=== PATIENT | female | born 1945 | race Caucasian/White ===

== ENCOUNTER 2016-07-31 11:15 | Inpatient (IN) | payer OTHER, MEDICARE ==
[2016-07-31] VITALS (8 sets, daily range): BP systolic 73–127; BP diastolic 50–75; PULSE 77–103; TEMP 36.9–38.6; O2SAT 94–99; Ht 162.6 cm; Wt 92.3 kg
[~2016-07-31] VITALS: Ht 162.6 cm; Wt 92.3 kg
[~2016-07-31 11:15] MED LIST: LSN20 PO; MULT-223 PO
[2016-07-31] MEDS ORDERED: LPT10 PO (11:48)
[2016-07-31] MEDS ORDERED: ASPI-461 PO (11:48)
[2016-07-31] MEDS ORDERED: LISI-725 PO (11:59)
[2016-07-31] MEDS ORDERED: SODIUM CHLORIDE 0.9% 1000ML 1,000 ML IV STA ×2 (12:20→13:18)
[2016-07-31 12:36] LABS: HEMATOCRIT 51.6 % (37-47); MEAN CORPUSCULAR HGB CONC 34.1 g/dl (32-36); MEAN PLATELET VOLUME 10.9 fL (7.4-10.4); PLATELET COUNT 303 K/uL (130-400); RED BLOOD COUNT 5.67 M/uL (4.2-5.4); WHITE BLOOD COUNT 20.75 K/uL (4.8-10.8)
[2016-07-31 12:44] LABS: BUN/CREATININE RATIO 12.8 (10-20); CALCIUM 9.1 mg/dl (8.5-10.1); CREATININE 2.9 mg/dl (0.60-1.20); POTASSIUM 3.7 mmol/L (3.5-5.1)
[2016-07-31 12:50] LABS: PARTIAL THROMBOPLASTIN RATIO 1.1; PROTHROMBIN TIME (PATIENT) 10.9 SECONDS (9.0-12.0)
[2016-07-31 12:53] LABS: BASO ABS # 0.01 K/uL (0-0.2); COMPLETE YES; EOS % 0.3 %; IG% 0.4 %; LYMPH % 12.5 %; LYMPH ABS # 2.59 K/uL (1.2-3.4); NEUT % 70.8 %
--- NOTE | 2016-07-31 13:40 | DIAGNOSTIC IMAGING REPORT ---
CHEST ONE VIEW PORTABLE CLINICAL HISTORY: Leukocytosis. Evaluate for pneumonia. COMPARISON STUDY: Chest radiograph October 16, 2015. FINDINGS: Lung volumes are normal. There is no pneumothorax or pleural effusion. Cardiac size is normal. Mediastinal contours are normal. Linear left basilar opacity is suggestive of atelectasis. There is no evidence of pulmonary edema. IMPRESSION: No acute cardiopulmonary findings. Electronically signed by: Kenan Hogan M.D. 07/31/2016 1:37 PM Dictated Date/Time: 07/31/2016 1:37 PM
[2016-07-31] MEDS ORDERED: ONDANSETRON INJ 2 MG/ML 2 ML VIAL IV PRN (14:15)
[2016-07-31] MEDS ORDERED: ACETAMINOPHEN 325 MG TAB PO PRN (14:15)
[2016-07-31] MEDS ORDERED: POLYETHYLENE (MIRALAX) 17 GM PACK PO PRN (14:30)
--- NOTE | 2016-07-31 14:46 | History and Physical ---
History & Physical Date & Time of Service: Jul 31, 2016 at 14:20 Chief Complaint: Kidneys,Blood Pressure Primary Care Physician: Kevin Ritter MD History of Present Illness Source: patient 70 yo F with HTN and hyperlipidemia who was just started on ASA 81 and Lipitor two months ago presents with 5 days of nausea, vomiting and diarrhea. She states that on the first day of symptoms she had consumed home-canned applesauce that she had received in the fall. She also atea sandwich with coldcuts that were pre-packaged. The day prior she ate a crabcake at a local restaurant. She states this same kind of thing happened to her annually over the past two years, in those instances, her symptoms followed a vacation in [place]. At that time symptoms were attributed to eating foods that were rich and different from her norm. She denies any recent international travel and was in [facility] two weeks ago. She denies any recent sick contacts. She has no reptiles but does have a dog at home. She lives alone. She denies any visual changes, weakness or other neurologic symptom at this time. She is able to walk without issue. She states that her vomiting persisted for approx 3 days and then she developed a watery, non-bloody diarrhea that is essentially normal. She does report some lightheadedness without loss of consciousness, and she states that what brought her to the ER today was her lower blood pressure (which she checked at home) and her lack of urination. She denies any urinary urgency, hesitancy, pelvic pressure, flank pain, pelvic pain, fevers, chills, dysuria, chest pain, shortness of breath, sore throat, congestion, ear fullness, joint pain, muscle aches, or any issues with starting the new medications. She does report a small frontal headache around her eyes. Past Medical/Surgical History Medical Problems: (1) HTN (hypertension) Status: Chronic (2) Hyperlipidemia Status: Chronic Surgical Problems: (1) H/O colonoscopy Permanent Comment: 03/26/2015- adenomatous polyp, diverticulosis Status: Chronic (2) H/O hernia repair Status: Chronic (3) s p excision cervical lymph node Permanent Comment: benign Status: Resolved (4) S/P breast biopsy Permanent Comment: fibrocystic disease Status: Resolved (5) S/P ORIF (open reduction internal fixation) fracture Permanent Comment: left, tibia Status: Chronic Family History Cancer FH: heart disease FHx: gallbladder disease Hypertension Kidney disease Kidney stones Social History Smoking Status: Former Smoker Smokeless Tobacco Use: No Alcohol Use: socially Drug Use: none Marital Status: single Housing status: lives alone Occupational Status: retired Immunizations History of Influenza Vaccine: Yes Influenza Vaccine Date: Jan 31, 2016 History of Tetanus Vaccine?: No Tetanus Immunization Date: Oct 28, 2013 History of Pneumococcal: Yes Pneumococcal Date: May 15, 2014 History of Hepatitis B Vaccine: No Multi-Drug Resistant Organisms History of MDRO: No Allergies Coded Allergies: Ampicillin (Verified Allergy, Mild, RASH, 07/31/16) Amlodipine (Verified Allergy, Unknown, TACHYCARDIA, NAUSEA, 07/31/16) Amoxicillin (Verified Allergy, Unknown, ALLERGIC TO ALL PENICILLIN SUBSTITUTES, 07/31/16) Chlorthalidone (Verified Allergy, Unknown, SEVERE HYPONATREMIA, 07/31/16) Thiazide-Type Diuretics (Verified Allergy, Unknown, SEVERE HYPONATREMIA, ) Home Medications Scheduled Aspirin (Aspirin), 81 MG PO DAILY Atorvastatin (Atorvastatin Calcium), 10 MG PO DAILY Lisinopril (Zestril), 20 MG PO DAILY Multiple Vitamins W/ Minerals (Multi For Her 50+), 1 TAB PO DAILY Review of Systems Ten systems were reviewed and negative except as indicated in HPI above. Physical Exam Vital Signs Date Time Temp Pulse Resp B/P Pulse Ox O2 Delivery O2 Flow Rate FiO2 07/31/16 13:13 91 19 101/60 95 Room Air 07/31/16 11:47 101 07/31/16 11:47 99 83/54 07/31/16 11:20 36.4 82 16 70/52 98 Room Air GEN: WNWD, in no acute distress, alert and appropriate HEENT: NC/AT, PERRL, normal sclerae, mucous membranes are moist CARDIO: reg rate, S1/2 heard without m/g/r LUNGS: CTA bilaterally, no crackles, rales or wheezes, good diaphragmatic excursion ABD: soft, non-tender, non-distended, no rebound or guarding, +BS EXTREMITY: RP and DP palpable 2+ bilat, no LE swelling or edema, extremities are warm and well-perfused NEURO: CN 2-12 grossly intact, could not elicit knee reflexes, S1 reflexes 2/4 bilaterally, no gross focal deficits. MUSC: 5/5 strength throughout, moves easily around the bed and moving all extremities equally, no gross focal deficits SKIN: warm and dry, no rashes or lesions seen on lower legs arms, trunk or back area. Diagnostics Laboratory Results Results Past 24 Hours Test 07/31/16 11:38 07/31/16 13:48 07/31/16 13:50 Range/Units White Blood Count 20.75 4.8-10.8 K/uL Red Blood Count 5.67 4.2-5.4 M/uL Hemoglobin 17.6 12.0-16.0 g/dL Hematocrit 51.6 37-47 % Mean Corpuscular Volume 91.0 80-100 fL Mean Corpuscular Hemoglobin 31.0 25-34 pg Mean Corpuscular Hemoglobin Concent 34.1 32-36 g/dl Platelet Count 303 130-400 K/uL Mean Platelet Volume 10.9 7.4-10.4 fL Neutrophils (%) (Auto) 70.8 % Lymphocytes (%) (Auto) 12.5 % Monocytes (%) (Auto) 16.0 % Eosinophils (%) (Auto) 0.3 % Basophils (%) (Auto) 0.0 % Neutrophils # (Auto) 14.66 1.4-6.5 K/uL Lymphocytes # (Auto) 2.59 1.2-3.4 K/uL Monocytes # (Auto) 3.33 0.11-0.59 K/uL Eosinophils # (Auto) 0.07 0-0.5 K/uL Basophils # (Auto) 0.01 0-0.2 K/uL RDW Standard Deviation 43.9 36.4-46.3 fL RDW Coefficient of Variation 13.2 11.5-14.5 % Immature Granulocyte % (Auto) 0.4 % Immature Granulocyte # (Auto) 0.09 0.00-0.02 K/uL Prothrombin Time 10.9 9.0-12.0 SECONDS Prothromb Time International Ratio 1.0 0.9-1.1 Activated Partial Thromboplast Time 29.2 21.0-31.0 SECONDS Partial Thromboplastin Ratio 1.1 Sodium Level 135 136-145 mmol/L Potassium Level 3.7 3.5-5.1 mmol/L Chloride Level 96 98-107 mmol/L Carbon Dioxide Level 25 21-32 mmol/L Anion Gap 14.0 3-11 mmol/L Blood Urea Nitrogen 37 7-18 mg/dl Creatinine 2.90 0.60-1.20 mg/dl Est Creatinine Clear Calc Drug Dose 20.4 ml/min Estimated GFR () 18.4 Estimated GFR (Non- 15.9 BUN/Creatinine Ratio 12.8 10-20 Random Glucose 127 70-99 mg/dl Calcium Level 9.1 8.5-10.1 mg/dl Total Bilirubin 0.9 0.2-1 mg/dl Direct Bilirubin 0.2 0-0.2 mg/dl Aspartate Amino Transf (AST/SGOT) 15 15-37 U/L Alanine Aminotransferase (ALT/SGPT) 29 12-78 U/L Alkaline Phosphatase 88 45-117 U/L Total Protein 7.6 6.4-8.2 gm/dl Albumin 3.8 3.4-5.0 gm/dl Lipase 126 73-393 U/L Bedside Lactic Acid Venous 1.93 0.90-1.70 mmol/L Bedside Troponin I 0.000 0-0.045 ng/ml Microbiology Results 07/31/16 Blood Culture, Received Pending 07/31/16 Blood Culture, Received Pending CXR normal EKG sinus [id number], no ST changes Impression Assessment and Plan 70 yoF with acute kidney injury and hypotension responsive to IVF 1. AMIE-baseline appears to be 1.5, currently 2.9 in the setting of acute gastroenteritis for the past 5 days. Clinical picture is consistent with this with hemoconcentration, elevated BUN/Creat, low normal sodium, low BP responsive to IVF and lightheadedness at home. She has been drinking Gatorade and Pedialyte at home. Cont IVF, urine studies pending to assess FeNa. Nephro consulted at patient's request--she is known to them. Repeat PRP in am. 2. AGE-uncertain etiology with causes including but not limited to foodborne illness such as staph or other pre-formed toxin versus botulism (ate home- canned foods on day illness began,however, no neurologic manifestations), community-acquired illness such as Norovirus (which may also be foodborne), renal failure, drugs (however, denies any abx). Normal TSH in 2016. Will screen for diabetes with A1C. She also may have a food intolerance that is unknown to her.? PUD or H pylori is also a remote possibility as this should cause a more regular functional dyspepsia, however, it is reasonable to screen her stool. Stool is watery and non-bloody so do not suspect any invasive enteropathies/inflammatory diarrhea such as salmonella present. Cont clear liquid diet and supportive care for now. 3. Leukocytosis-likely 2/2 hemoconcentration and inflammatory response with recent illness. No fevers, chills, or other signs of systemic infection. Monitor with daily CBC 4. Hypotension-likely 2/2 vomiting and diarrhea, fluid-responsive 5. HLP-recently started statin, cont this now. Full Code Clear liquid diet for now FULL CODE Dispo-likely home in next 1-2 days Angelita Davila, Hospitalist Level of Care Med/Surg Resuscitation Status FULL RESUSCITATION VTE Prophylaxis VTE Risk Assessment Done? Y/N: Yes Risk Level: Moderate Given or contraindicated: Unfractionated heparin SQ Social Service Consult None Apply
[2016-07-31] MEDS ORDERED: IV FLUIDS COMPLETED PRN ×2 (15:15)
--- NOTE | 2016-07-31 15:15 | EMERGENCY ROOM VISIT NOTE ---
History Report prepared by Idalia: Jon Ramsay Under the Supervision of: Dr. Rocael Salmon M.D. First contact with patient: 12:12 Chief Complaint: OTHER COMPLAINT Stated Complaint: KIDNEYS,BLOOD PRESSURE History of Present Illness The patient is a 70 year old female who presents to the Emergency Room with complaints of persistent weakness that began on Monday, four days prior to arrival. The patient is also concerned of her blood pressure dropping and a decrease in urination frequency and force. She first noticed her decrease in urination in Monday, and had a low blood pressure reading of 119/80 yesterday afternoon. She denies any recent chest pains or shortness of breath. The patient does have a history of renal failure and drinks over 2 liters of water per day. She notes that she usually urinates frequently with force, which has decreased greatly over the past four days. The patient has had several bouts of diarrhea and right upper quadrant abdominal pain that began on , three days prior to this visit. The abdominal pain migrated down to her lower abdomen but has since resolved. She denies any recent fevers or long trips. The patient commonly takes Lisinopril, but she has not taken any dosages since Monday when she noticed her blood pressure dropping, she also takes daily Baby Aspirin. 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 A total of 10 systems reviewed and were otherwise negative. Past Medical & Surgical Medical Problems: (1) Acute kidney injury (2) ARF (acute renal failure) (3) Gastroenteritis (4) HTN (hypertension) (5) Hyperlipidemia Surgical Problems: (1) H/O colonoscopy (2) H/O hernia repair (3) s p excision cervical lymph node (4) S/P breast biopsy (5) S/P ORIF (open reduction internal fixation) fracture Family History Cancer FH: heart disease FHx: gallbladder disease Hypertension Kidney disease Kidney stones Social History Smoking Status: Former Smoker Alcohol Use: none Drug Use: none Marital Status: Housing Status: lives alone Occupation Status: retired Current/Historical Medications Scheduled Aspirin (Aspirin), 81 MG PO DAILY Atorvastatin (Atorvastatin Calcium), 10 MG PO DAILY Lisinopril (Zestril), 20 MG PO DAILY Multiple Vitamins W/ Minerals (Multi For Her 50+), 1 TAB PO DAILY Allergies Coded Allergies: Ampicillin (Verified Allergy, Mild, RASH, 07/31/16) Amlodipine (Verified Allergy, Unknown, TACHYCARDIA, NAUSEA, 07/31/16) Amoxicillin (Verified Allergy, Unknown, ALLERGIC TO ALL PENICILLIN SUBSTITUTES, 07/31/16) Chlorthalidone (Verified Allergy, Unknown, SEVERE HYPONATREMIA, 07/31/16) Thiazide-Type Diuretics (Verified Allergy, Unknown, SEVERE HYPONATREMIA, ) Physical Exam Vital Signs Date Time Temp Pulse Resp B/P Pulse Ox O2 Delivery O2 Flow Rate FiO2 07/31/16 14:30 90 17 92/50 96 Room Air 07/31/16 13:54 92 17 97/59 97 Room Air 07/31/16 13:13 91 19 101/60 95 Room Air 07/31/16 11:47 101 07/31/16 11:47 99 83/54 07/31/16 11:20 36.4 82 16 70/52 98 Room Air Physical Exam Constitutional: Vital signs reviewed. Hypotensive. Eyes: Pupils are equal round reactive to light. Conjunctiva are noninjected. ENT: Pharynx is clear without erythema or exudate. Mucous membranes are moist. Neck supple without meningeal signs. Respiratory: Clear to auscultation bilaterally. Breath sounds are equal bilaterally. Cardiovascular: Tachycardiac rate with normal rhythm. No rubs or gallops. GI: Soft, nondistended and nontender. Bowel sounds are present. Musculoskeletal: No peripheral edema. No lower extremity tenderness. Integumentary: No cyanosis. Neurological: The patient is awake and alert. No focal deficits. Psychiatric: Normal affect. Medical Decision & Procedures ER Provider Diagnostic Interpretation: Radiology results as stated below per my review and the radiologist's interpretation: CHEST ONE VIEW PORTABLE CLINICAL HISTORY: Leukocytosis. Evaluate for pneumonia. COMPARISON STUDY: Chest radiograph October 16, 2015. FINDINGS: Lung volumes are normal. There is no pneumothorax or pleural effusion. Cardiac size is normal. Mediastinal contours are normal. Linear left basilar opacity is suggestive of atelectasis. There is no evidence of pulmonary edema. IMPRESSION: No acute cardiopulmonary findings. Electronically signed by: Kenan Hogan M.D. 07/31/2016 1:37 PM Dictated Date/Time: 07/31/2016 1:37 PM Laboratory Results 07/31/16 11:38 Red Blood Count 5.67, Mean Corpuscular Volume 91.0, Mean Corpuscular Hemoglobin 31.0, Mean Corpuscular Hemoglobin Concent 34.1, Mean Platelet Volume 10.9, Neutrophils (%) (Auto) 70.8, Lymphocytes (%) (Auto) 12.5, Monocytes (%) (Auto) 16.0, Eosinophils (%) (Auto) 0.3, Basophils (%) (Auto) 0.0, Neutrophils # (Auto ) 14.66, Lymphocytes # (Auto) 2.59, Monocytes # (Auto) 3.33, Eosinophils # (Auto ) 0.07, Basophils # (Auto) 0.01 07/31/16 11:38 Test 07/31/16 11:38 07/31/16 13:48 07/31/16 13:50 07/31/16 14:20 White Blood Count 20.75 K/uL (4.8-10.8) Red Blood Count 5.67 M/uL (4.2-5.4) Hemoglobin 17.6 g/dL (12.0-16.0) Hematocrit 51.6 % (37-47) Mean Corpuscular Volume 91.0 fL (80-100) Mean Corpuscular Hemoglobin 31.0 pg (25-34) Mean Corpuscular Hemoglobin Concent 34.1 g/dl (32-36) Platelet Count 303 K/uL (130-400) Mean Platelet Volume 10.9 fL (7.4-10.4) Neutrophils (%) (Auto) 70.8 % Lymphocytes (%) (Auto) 12.5 % Monocytes (%) (Auto) 16.0 % Eosinophils (%) (Auto) 0.3 % Basophils (%) (Auto) 0.0 % Neutrophils # (Auto) 14.66 K/uL (1.4-6.5) Lymphocytes # (Auto) 2.59 K/uL (1.2-3.4) Monocytes # (Auto) 3.33 K/uL (0.11-0.59) Eosinophils # (Auto) 0.07 K/uL (0-0.5) Basophils # (Auto) 0.01 K/uL (0-0.2) RDW Standard Deviation 43.9 fL (36.4-46.3) RDW Coefficient of Variation 13.2 % (11.5-14.5) Immature Granulocyte % (Auto) 0.4 % Immature Granulocyte # (Auto) 0.09 K/uL (0.00-0.02) Prothrombin Time 10.9 SECONDS (9.0-12.0) Prothromb Time International Ratio 1.0 (0.9-1.1) Activated Partial Thromboplast Time 29.2 SECONDS (21.0-31.0) Partial Thromboplastin Ratio 1.1 Anion Gap 14.0 mmol/L (3-11) Est Creatinine Clear Calc Drug Dose 20.4 ml/min Estimated GFR () 18.4 Estimated GFR (Non- 15.9 BUN/Creatinine Ratio 12.8 (10-20) Calcium Level 9.1 mg/dl (8.5-10.1) Total Bilirubin 0.9 mg/dl (0.2-1) Direct Bilirubin 0.2 mg/dl (0-0.2) Aspartate Amino Transf (AST/SGOT) 15 U/L (15-37) Alanine Aminotransferase (ALT/SGPT) 29 U/L (12-78) Alkaline Phosphatase 88 U/L (45-117) Total Protein 7.6 gm/dl (6.4-8.2) Albumin 3.8 gm/dl (3.4-5.0) Lipase 126 U/L (73-393) Bedside Lactic Acid Venous 1.93 mmol/L (0.90-1.70) Bedside Troponin I 0.000 ng/ml (0-0.045) Test 07/31/16 14:55 Laboratory results as reviewed by me. Medications Administered Medications (Trade) Dose Ordered Sig/Melinda Route Start Time Stop Time Status Last Admin Dose Admin Sodium Chloride 1,000 ml @ 999 mls/hr Q1H1M STAT IV 07/31/16 12:20 07/31/16 13:20 DC 07/31/16 12:20 999 MLS/HR Sodium Chloride (Nss 1000ml) 1,000 ml @ 150 mls/hr Q6H40M STAT IV 07/31/16 13:18 07/31/16 19:57 07/31/16 13:30 150 MLS/HR ECG Indication: other (Hypotension) Rate (beats per minute): 106 Rhythm: sinus tachycardia Findings: no acute ischemic change, no ectopy Comparison ECG Date: 10/16/15 Change: no significant change ED Course 1213: The patient was evaluated in room C4. A complete history and physical exam was performed. 1220: Ordered Sodium Chloride 1000 mL @ 999 mL/hr IV. 1301: I checked on the patient at this time, her blood pressure is 94/66. I discussed her test results with her, she has no further complaints at this time. 1303: I placed a call for medicine at this time. 1306: I discussed the case with Dr. Angelita Waters Hospitalist, she will evaluate the patient for further treatment. 1318: Ordered Sodium Chloride 1000 mL @ 999 mL/hr IV. Medical Decision This is a 70-year-old female who presents with hypotension. Differential diagnosis includes dehydration, acute renal failure, hyponatremia, C. difficile colitis, enteritis. I did perform a limited focused review of portions of the patient's old chart on the electronic medical record. The patient was admitted to the hospital in September of 2015 for hypotension, volume depletion, and renal failure. I did evaluate the patient as noted above. The patient is presenting with hypertension. She has had 2 prior episodes of hypotension and renal failure and has similar symptoms today. She has developed diarrhea for the past several days. She did have some abdominal pain but that has since resolved. She has no tenderness on examination of her abdomen. IV access was established. The patient was placed on a continuous monitoring analyst. I did treat her with normal saline 1 L bolus IV. Her blood pressure did improve. She was continued on normal saline IV. I did order and personally review the patient's 12-lead EKG and chest x-ray as described above. I did order and review the patient's blood work as noted in the electronic medical record. The patient has acute renal failure. Her white count is over 20,000 with an elevated lactic acid. I did reassess the patient multiple times. She does not complaining of any symptoms currently other than feeling weak. She denies having any abdominal pain. I did order urinalysis and and the waiting a sample. I did recommend admission to the hospital for further evaluation. I did discuss the case with the hospitalist and housing case manager. Consults Time Called: 1305 Consulting Physician: Dr. Giovanni Waters Hospitalist Returned Call: 1300 I discussed the case with Dr. Angelita Waters Hospitalist, she will evaluate the patient for further treatment. Impression Primary Impression: Hypotension Additional Impressions: Acute renal failure Diarrhea Leukocytosis Scribe Attestation The scribe's documentation has been prepared under my direct and personally reviewed by me in its entirety. I confirm that the note above accurately reflects all work, treatment, procedures, and medical decision making performed by me. Departure Information Dispostion Being Evaluated By Hospitalist Referrals Kevin Ritter MD (PCP) Patient Instructions My [facility] Problem Qualifiers Primary Impression: Hypotension Hypotension type: unspecified hypotension type Qualified Codes: I95.9 - Hypotension, unspecified Additional Impressions: Acute renal failure Acute renal failure type: unspecified Qualified Codes: N17.9 - Acute kidney failure, unspecified Diarrhea Diarrhea type: unspecified type Qualified Codes: R19.7 - Diarrhea, unspecified Leukocytosis Leukocytosis type: unspecified Qualified Codes: D72.829 - Elevated white blood cell count, unspecified
[2016-07-31 15:38] LABS: LYME DISEASE AB IGG NEG (NEG); LYME DISEASE AB IGM NEG (NEG)
[2016-07-31 15:45] LABS: MAGNESIUM 2.3 mg/dl (1.8-2.4)
[2016-07-31 16:13] LABS: URINE APPEARANCE TURBID (CLEAR); URINE COLOR DK YELLOW; URINE EPITHELIAL CELL AUTO >30 /lpf (0-5); URINE NITRITE POS (NEG); URINE SPECIFIC GRAVITY 1.022 (1.000-1.030); UROBILINOGEN NEG (NEG)
[2016-07-31 16:20] LABS: MANUAL MICROSCOPIC REQUIRED? NO; REVIEW REQ? YES
[2016-07-31 16:21] LABS: URINE BILIRUBIN NEG (NEG)
[2016-07-31 16:30] LABS: URINE PATH CASTS 0-3 GRANULAR CASTS /lpf (0)
[2016-07-31] MEDS ORDERED: NURSING VERBAL MED ORDER ONE (16:30)
[2016-07-31] MEDS ORDERED: SODIUM CHLORIDE 0.9% 1000ML 1,000 ML IV ONE ×2 (16:45→17:45)
[2016-07-31] MEDS: SODIUM CHLORIDE 0.9% 1000ML 1,000 ML IV SCH (20:45)
[2016-07-31] MEDS: HEPARIN SOD 5000 UNIT/0.5 ML CARP SQ SCH (21:10)
[2016-07-31] MEDS ORDERED: PROMETHAZINE HCL INJ 12.5 MG in SODIUM CHLORIDE 0.9% 50ML 50 ML IV PRN (23:30)
[2016-08-01] MEDS: SODIUM CHLORIDE 0.9% 1000ML 1,000 ML IV SCH ×2 (05:45→17:04)
[2016-08-01] MEDS: HEPARIN SOD 5000 UNIT/0.5 ML CARP SQ SCH ×3 (05:45→22:18)
[2016-08-01 06:29] LABS: HEMATOCRIT 44.7 % (37-47); MEAN CELL VOLUME 91.4 fL (80-100); MEAN CORPUSCULAR HEMOGLOBIN 31.1 pg (25-34); MEAN PLATELET VOLUME 10.7 fL (7.4-10.4); PLATELET COUNT 262 K/uL (130-400); RED BLOOD COUNT 4.89 M/uL (4.2-5.4); WHITE BLOOD COUNT 16.21 K/uL (4.8-10.8)
[2016-08-01 06:44] LABS: ESTIMATED AVERAGE GLUCOSE 117 mg/dl; HA1C FLAG Normal (Normal)
[2016-08-01 07:20] LABS: BUN/CREATININE RATIO 18.8 (10-20); CALCIUM 8.1 mg/dl (8.5-10.1); CREATININE 1.4 mg/dl (0.60-1.20); MAGNESIUM 2.2 mg/dl (1.8-2.4); PHOSPHORUS 3.2 mg/dl (2.5-4.9); POTASSIUM 3.7 mmol/L (3.5-5.1)
[2016-08-01 07:58] VITALS: BP 112/62; PULSE 86; TEMP 37.2; O2SAT 96
[2016-08-01] MEDS: ATORVASTATIN 10 MG TAB PO SCH (08:29)
[2016-08-01] MEDS: CEROVITE ADV FORMULA TAB PO SCH (08:30)
[2016-08-01 08:55] VITALS: O2SAT 96
--- NOTE | 2016-08-01 10:34 | Clinical Documentation Query ---
CLINICAL DOCUMENTATION QUERY Dr. JACKSON, In your clinical opinion is this patient being managed for: ( ) Chronic kidney disease, stage 3 ( + ) Other explanation of clinical findings (Please Explain) ( ) Unable to determine (Please Define) ( ) Need to Discuss ( ) Not Agree No h/o CKD in Chart.Acute renal failure was due to dehydration The medical record reflects the following clinical findings, treatment, and risk factors. Clinical Indicators: 70 yo female presenting with gastroenteritis and AMIE. Review of historical GFR revealed range of 30.1-51.2 Treatment: monitor PRP's, chronic management of HTN Risk Factors: age, HTN Please clarify and document your clinical opinion in the progress notes and discharge summary. Terms such as "probable", "suspected", "likely", "questionable", "possible", or "still to be ruled out" are acceptable. IF IN AGREEMENT, YOU MUST DOCUMENT ABOVE DIAGNOSTIC STATEMENT IN DAILY PROGRESS NOTES AND DISCHARGE SUMMARY. This document is not part of the patient's record. Thank You, Madeleine Espinoza RN [phone]
[2016-08-01 11:42] VITALS: BP 124/76; PULSE 87; TEMP 37.1; O2SAT 97
--- NOTE | 2016-08-01 15:45 | DIAGNOSTIC IMAGING REPORT ---
ULTRASOUND RIGHT UPPER QUADRANT ABDOMEN CLINICAL HISTORY: Right upper quadrant abdominal pain. COMPARISON STUDY: No priors. TECHNIQUE: Real-time, grayscale, and color flow sonography of the right upper quadrant of the abdomen was performed. Images are reviewed in the transverse and longitudinal planes. FINDINGS: Liver: The liver is normal in size and demonstrates heterogeneous increased echotexture suggesting hepatic steatosis. There is no intrahepatic biliary ductal dilatation. Scattered hepatic cysts measure up to 2.4 cm. The main portal vein is patent. Gallbladder: The gallbladder is normal in appearance. No gallstones are identified. There is no gallbladder wall thickening or pericholecystic fluid. A sonographic Price's sign is reportedly absent. The common bile duct measures up to 0.4 cm in diameter. Pancreas: Visualized portions of the pancreatic head and body are normal in appearance. Right kidney: Survey images of the right kidney demonstrate normal size and echotexture. There is no hydronephrosis. Ascites: None. IMPRESSION: 1. No acute sonographic abnormality is identified in the right upper quadrant. No gallstones are identified. 2. Findings suggest hepatic steatosis. Electronically signed by: Zander Carr M.D. 08/01/2016 3:43 PM Dictated Date/Time: 08/01/2016 3:42 PM
[2016-08-01 15:55] VITALS: BP 117/68; PULSE 84; TEMP 36.8; O2SAT 98
--- NOTE | 2016-08-01 17:17 | Nephrology Consultation ---
Nephrology Consultation Date of Consultation: Aug 01, 2016. Attending Physician: Dr Marie Requesting Physician: Dr Davila Reason for Consultation: AMIE History of Present Illness 70 year old female admitted yesterday for mgt of hypotension and acute renal failure. This is her 3rd such admission in 3 years. PMH includes HTN, HL, tubular adenoma. She saw PCP in 05/2016 for about a week of intermittent n/v and diarrhea ; more recently had 3 days of vomiting NBNB and then subsequently developed watery nonbloody diarrhea. She held her ACEI and did her best to follow a BRAT diet. She came to ED d/t concerns about light headedness w/o fall and decreased UOP and lower sbp on home monitor. In ER, bp was 70/52 on presentation and came up to 101/60 w/ IVF. Her presenting creatinine was 2.9; her baseline is 1.0-1.1 in [facility]. She did have a creatinine of 1.5 in 05/2016 but this had been in the setting of PCP visit w/ clinical concern for dehydration and improved on subsequent lab. States that her recurrent GI sx start often w/ epigastric pain which then progresses to diarrhea and wonders if she needs EGD. Did eat some home-canned applesauce, else no identifiable food borne exposures. Hx of intolerance to amlodipine (caused palpitations); thiazides have caused significant hyponatremia in past. Some recent work up at PCP for possible steal syndrome d/t asymmetric bp in BL arms and pt in process of getting vascular referral. No nsaids; no herbal suppls. On recheck this am , creat is 1.4. Lives alone, generally active lifestyle. Due for her next colonoscopy (3 yr) in 03/2018. No EGD on file. Past Medical/Surgical History Medical Problems: (1) Acute renal failure Status: Acute (2) Acute renal failure Status: Acute (3) Diarrhea Status: Acute (4) Hypotension Status: Acute (5) Hypotension Status: Acute (6) Leukocytosis Status: Acute (7) Tachycardia Status: Acute (8) Vomiting Status: Acute Family History Cancer FH: heart disease FHx: gallbladder disease Hypertension Kidney disease Kidney stones Social History Smoking Status: Former Smoker Alcohol Use: none Drug Use: none Marital Status: Housing Status: lives alone Occupation Status: retired Allergies Coded Allergies: Ampicillin (Verified Allergy, Mild, RASH, 4/9/17) Amlodipine (Verified Allergy, Unknown, TACHYCARDIA, NAUSEA, 07/31/16) Amoxicillin (Verified Allergy, Unknown, ALLERGIC TO ALL PENICILLIN SUBSTITUTES, 07/31/16) Chlorthalidone (Verified Allergy, Unknown, SEVERE HYPONATREMIA, 07/31/16) Thiazide-Type Diuretics (Verified Allergy, Unknown, SEVERE HYPONATREMIA, ) Medications Current Inpatient Medications Medications (Trade) Dose Ordered Sig/Melinda Route Start Time Stop Time Status Last Admin Dose Admin Heparin Sodium (Porcine) (Heparin Sq 5000 Unit/0.5ml) 5,000 unit Q8H SQ 07/31/16 22:00 08/30/16 21:59 08/01/16 05:45 5,000 UNIT Acetaminophen (Tylenol Tab) 650 mg Q4H PRN PO 07/31/16 14:15 08/30/16 14:14 Polyethylene (Miralax Powder Packet) 17 gm DAILY PRN PO 07/31/16 14:30 08/30/16 14:29 Ondansetron HCl (Zofran Inj) 4 mg Q6H PRN IV 07/31/16 14:15 08/30/16 14:14 07/31/16 21:03 4 MG Atorvastatin Calcium (Lipitor Tab) 10 mg DAILY PO 08/01/16 09:00 08/31/16 08:59 08/01/16 08:29 10 MG Multivitamins/ Minerals (Multivitamin W/ Minerals Tab) 1 tab DAILY PO 08/01/16 09:00 08/31/16 08:59 08/01/16 08:30 1 TAB Miscellaneous 1 ea 1 ea PRN PRN N/A 07/31/16 15:15 07/31/17 15:14 Sodium Chloride 1,000 ml @ 100 mls/hr Q10H IV 07/31/16 20:45 08/30/16 20:44 08/01/16 05:45 100 MLS/HR Promethazine HCl/ Sodium Chloride (Phenergan Inj/ Nss 50ml) 50.5 ml @ 204 mls/hr Q6H PRN IV 07/31/16 23:30 08/30/16 23:29 07/31/16 23:43 204 MLS/HR Home Meds and Scripts Medications Dose Route/Sig Max Daily Dose Days Date Category Zestril (Lisinopril) 20 Mg Tab 20 Mg PO DAILY 07/31/16 Reported Atorvastatin Calcium (Atorvastatin) 10 Mg Tab 10 Mg PO DAILY 07/31/16 Reported Aspirin 81 Mg Tab 81 Mg PO DAILY 07/31/16 Reported Multi For Her 50+ (Multiple Vitamins W/ Minerals) 1 Tab Tab 1 Tab PO DAILY 10/23/14 Reported Review of Systems Constitutional: + fatigue, + weakness Eyes: No worsening of vision ENT: No hearing loss Respiratory: No cough, No shortness of breath Cardiac: No chest pain, No edema Abdomen: + see HPI Musculoskeletal: No see HPI Female : No dysuria, No hematuria, No urinary frequency Neuro: + balance problems, + weakness, No memory loss Psych: No anxiety, No depression symptoms Heme: No abnormal bleeding/bruising Endo: No fatigue Skin: No rash Physical Exam Date Time Temp Pulse Resp B/P Pulse Ox O2 Delivery O2 Flow Rate FiO2 08/01/16 07:58 37.2 86 14 112/62 96 Room Air 08/01/16 07:32 Room Air 07/31/16 23:00 Room Air 07/31/16 22:59 37.1 103 16 120/75 97 Room Air 07/31/16 21:51 38.6 77 18 113/64 96 Room Air 07/31/16 21:29 37.1 85 18 127/73 94 Room Air 07/31/16 20:35 37.4 88 18 113/74 96 Room Air 07/31/16 19:55 38.6 77 18 96/58 96 Room Air 07/31/16 19:48 Room Air 07/31/16 18:42 37.1 80 20 94/59 99 Room Air 07/31/16 17:25 36.9 79 16 86/51 99 Room Air 07/31/16 16:54 Room Air 07/31/16 15:13 37.2 102 18 74/53 95 Room Air 73/50 07/31/16 14:58 92 21 90/48 94 07/31/16 14:30 90 17 92/50 96 Room Air 07/31/16 13:54 92 17 97/59 97 Room Air 07/31/16 13:13 91 19 101/60 95 Room Air 07/31/16 11:47 101 07/31/16 11:47 99 83/54 07/31/16 11:20 36.4 82 16 70/52 98 Room Air 24-Hour Column 08/01/16 08:00 Intake Total 2632 ml Output Total 1190 ml Balance 1442 ml General Appearance: WD/WN, + mild distress, + pertinent finding (on ra, maneuvers readily for exam) Eyes: EOMI ENT: hearing grossly normal Neck: supple Respiratory/Chest: lungs clear, normal breath sounds, no respiratory distress Cardiovascular: regular rate, rhythm, no edema Abdomen: normal bowel sounds, soft, + tenderness (epigastrium to moderate palpation w/o guarding/rebound; no sim) Extremities: non-tender, normal inspection, no pedal edema Neurologic/Psych: alert, normal mood/affect, oriented x 3 Skin: warm/dry, no rash Diagnostics Last 24 Hours Test 07/31/16 11:38 07/31/16 13:48 07/31/16 13:50 07/31/16 14:20 White Blood Count 20.75 K/uL Red Blood Count 5.67 M/uL Hemoglobin 17.6 g/dL Hematocrit 51.6 % Mean Corpuscular Volume 91.0 fL Mean Corpuscular Hemoglobin 31.0 pg Mean Corpuscular Hemoglobin Concent 34.1 g/dl Platelet Count 303 K/uL Mean Platelet Volume 10.9 fL Neutrophils (%) (Auto) 70.8 % Lymphocytes (%) (Auto) 12.5 % Monocytes (%) (Auto) 16.0 % Eosinophils (%) (Auto) 0.3 % Basophils (%) (Auto) 0.0 % Neutrophils # (Auto) 14.66 K/uL Lymphocytes # (Auto) 2.59 K/uL Monocytes # (Auto) 3.33 K/uL Eosinophils # (Auto) 0.07 K/uL Basophils # (Auto) 0.01 K/uL RDW Standard Deviation 43.9 fL RDW Coefficient of Variation 13.2 % Immature Granulocyte % (Auto) 0.4 % Immature Granulocyte # (Auto) 0.09 K/uL Prothrombin Time 10.9 SECONDS Prothromb Time International Ratio 1.0 Activated Partial Thromboplast Time 29.2 SECONDS Partial Thromboplastin Ratio 1.1 Sodium Level 135 mmol/L Potassium Level 3.7 mmol/L Chloride Level 96 mmol/L Carbon Dioxide Level 25 mmol/L Anion Gap 14.0 mmol/L Blood Urea Nitrogen 37 mg/dl Creatinine 2.90 mg/dl Est Creatinine Clear Calc Drug Dose 20.4 ml/min Estimated GFR () 18.4 Estimated GFR (Non- 15.9 BUN/Creatinine Ratio 12.8 Random Glucose 127 mg/dl Estimated Average Glucose 117 mg/dl Hemoglobin A1c 5.7 % Calcium Level 9.1 mg/dl Phosphorus Level 5.0 mg/dl Magnesium Level 2.3 mg/dl Total Bilirubin 0.9 mg/dl Direct Bilirubin 0.2 mg/dl Aspartate Amino Transf (AST/SGOT) 15 U/L Alanine Aminotransferase (ALT/SGPT) 29 U/L Alkaline Phosphatase 88 U/L Total Protein 7.6 gm/dl Albumin 3.8 gm/dl Lipase 126 U/L Bedside Lactic Acid Venous 1.93 mmol/L Bedside Troponin I 0.000 ng/ml Lyme Disease IgG Antibody NEG Lyme Disease IgM Antibody NEG Test 07/31/16 18:30 08/01/16 05:51 White Blood Count 16.21 K/uL Red Blood Count 4.89 M/uL Hemoglobin 15.2 g/dL Hematocrit 44.7 % Mean Corpuscular Volume 91.4 fL Mean Corpuscular Hemoglobin 31.1 pg Mean Corpuscular Hemoglobin Concent 34.0 g/dl RDW Standard Deviation 43.8 fL RDW Coefficient of Variation 13.2 % Platelet Count 262 K/uL Mean Platelet Volume 10.7 fL Sodium Level 137 mmol/L Potassium Level 3.7 mmol/L Chloride Level 105 mmol/L Carbon Dioxide Level 24 mmol/L Anion Gap 8.0 mmol/L Blood Urea Nitrogen 26 mg/dl Creatinine 1.40 mg/dl Est Creatinine Clear Calc Drug Dose 41.8 ml/min Estimated GFR () 44.3 Estimated GFR (Non- 38.2 BUN/Creatinine Ratio 18.8 Random Glucose 91 mg/dl Calcium Level 8.1 mg/dl Phosphorus Level 3.2 mg/dl Magnesium Level 2.2 mg/dl Diagnostic Radiology: CXR no acute cardiopulmonary process Abd u/s this am > hepatosteatosis else no acute process EKG: ECG ST at 106 bpm Assessment & Plan 70 y/o F w/ HTN, HL and now 3 admissions past 2 years w/ prerenal AMIE after presenting with same after several days of N/V progressed to diarrhea. No evidence to date of infectious etiology of GI sx. -her hypotension has improved w/ NS at 100 mL hourly which should continue -cont to hold amlodipine; finding another bp med for her may prove challenging given med intolerances; will consider later -chemistries and hgb acceptable -daily bmp while in house -consider GI evaluation inpt or outpt Appreciate consult; will follow with you.
--- NOTE | 2016-08-01 17:47 | Progress Note ---
Internal Med Progress Note Date of Service: Aug 01, 2016. Provider Documentation: SUBJECTIVE: The patient was seen and examined Feels a little better following admission Nausea and vomiting -better Wants to have more food OBJECTIVE: Vital Signs-as noted below Exam: General-no distress at rest Eyes-Normal ENT-normal Neck-supple Lungs-clear to auscultate bilaterally Heart-Regular,no murmur Abdomen-Benign,mildly tender in epigastrium,bowel sound present Extremities-No edema Neuro-AAOx3 Lab data as noted below. ASSESSMENT & PLAN: Acute Renal Failure Secondary to of acute gastroenteritis for the past 5 days with dehydration. She has been drinking Gatorade and Pedialyte at home. 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 No fevers, chills, or other signs of systemic infection. Improved Hypotension-likely 2/2 vomiting and diarrhea, fluid-responsive HLP-recently started statin, cont this now. Full Code FULL CODE Dispo-likely home in next 1-2 days Vital Signs: Date Time Temp Pulse Resp B/P Pulse Ox O2 Delivery O2 Flow Rate FiO2 08/01/16 15:55 36.8 84 18 117/68 98 Room Air 08/01/16 11:42 37.1 87 14 124/76 97 Room Air 08/01/16 08:55 96 Room Air 08/01/16 07:58 37.2 86 14 112/62 96 Room Air 08/01/16 07:32 Room Air 07/31/16 23:00 Room Air 07/31/16 22:59 37.1 103 16 120/75 97 Room Air 07/31/16 21:51 38.6 77 18 113/64 96 Room Air 07/31/16 21:29 37.1 85 18 127/73 94 Room Air 07/31/16 20:35 37.4 88 18 113/74 96 Room Air 07/31/16 19:55 38.6 77 18 96/58 96 Room Air 07/31/16 19:48 Room Air 07/31/16 18:42 37.1 80 20 94/59 99 Room Air Lab Results: Results Past 24 Hours Test 07/31/16 18:30 08/01/16 05:51 Range/Units White Blood Count 16.21 4.8-10.8 K/uL Red Blood Count 4.89 4.2-5.4 M/uL Hemoglobin 15.2 12.0-16.0 g/dL Hematocrit 44.7 37-47 % Mean Corpuscular Volume 91.4 80-100 fL Mean Corpuscular Hemoglobin 31.1 25-34 pg Mean Corpuscular Hemoglobin Concent 34.0 32-36 g/dl RDW Standard Deviation 43.8 36.4-46.3 fL RDW Coefficient of Variation 13.2 11.5-14.5 % Platelet Count 262 130-400 K/uL Mean Platelet Volume 10.7 7.4-10.4 fL Sodium Level 137 136-145 mmol/L Potassium Level 3.7 3.5-5.1 mmol/L Chloride Level 105 98-107 mmol/L Carbon Dioxide Level 24 21-32 mmol/L Anion Gap 8.0 3-11 mmol/L Blood Urea Nitrogen 26 7-18 mg/dl Creatinine 1.40 0.60-1.20 mg/dl Est Creatinine Clear Calc Drug Dose 41.8 ml/min Estimated GFR () 44.3 Estimated GFR (Non- 38.2 BUN/Creatinine Ratio 18.8 10-20 Random Glucose 91 70-99 mg/dl Calcium Level 8.1 8.5-10.1 mg/dl Phosphorus Level 3.2 2.5-4.9 mg/dl Magnesium Level 2.2 1.8-2.4 mg/dl Microbiology Results 07/31/16 Shiga Toxin Test - Preliminary, Resulted No E. Coli shiga toxin 1 or shiga tox... 07/31/16 Stool Culture - Preliminary, Resulted NO SALMONELLA ISOLATED TO DATE,... 07/31/16 Rotavirus Antigen - Final, Complete Negative for Rotavirus Antigen 07/31/16 C.difficile Toxin B Gene (PCR) - Final, Complete No C. difficile toxin B gene detected
[2016-08-01 22:46] VITALS: BP 144/80; PULSE 86; TEMP 36.9; O2SAT 95
[2016-08-02] MEDS: SODIUM CHLORIDE 0.9% 1000ML 1,000 ML IV SCH ×2 (02:40→12:33)
[2016-08-02] MEDS: HEPARIN SOD 5000 UNIT/0.5 ML CARP SQ SCH ×2 (05:53→13:06)
[2016-08-02 06:50] VITALS: BP 130/82; PULSE 92; TEMP 36.9; O2SAT 94
[2016-08-02] MEDS: CEROVITE ADV FORMULA TAB PO SCH (08:36)
[2016-08-02] MEDS: ATORVASTATIN 10 MG TAB PO SCH (08:36)
[2016-08-02 09:39] LABS: HEMATOCRIT 41.4 % (37-47); MEAN CORPUSCULAR HEMOGLOBIN 30.8 pg (25-34); MEAN CORPUSCULAR HGB CONC 33.8 g/dl (32-36); PLATELET COUNT 260 K/uL (130-400); RED BLOOD COUNT 4.55 M/uL (4.2-5.4); WHITE BLOOD COUNT 11.67 K/uL (4.8-10.8)
--- NOTE | 2016-08-02 09:56 | Progress Note ---
Internal Med Progress Note Date of Service: Aug 02, 2016. Provider Documentation: SUBJECTIVE: The patient was seen and examined Feels a little better following admission Nausea and vomiting -stopped Tolerating regular diet OBJECTIVE: Vital Signs-as noted below Exam: General-no distress at rest Eyes-Normal ENT-normal Neck-supple Lungs-clear to auscultate bilaterally Heart-Regular,no murmur Abdomen-Benign,mildly tender in epigastrium,bowel sound present Extremities-No edema Neuro-AAOx3 Lab data as noted below. ASSESSMENT & PLAN: Acute Renal Failure Secondary to of acute gastroenteritis for the past 5 days with dehydration. She has been drinking Gatorade and Pedialyte at home. 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 No fevers, chills, or other signs of systemic infection. Improved Hypotension-likely 2/2 vomiting and diarrhea, fluid-responsive HLP-recently started statin, cont this now. Full Code FULL CODE Disposition Discharge home today Vital Signs: Date Time Temp Pulse Resp B/P Pulse Ox O2 Delivery O2 Flow Rate FiO2 08/02/16 11:00 Room Air 08/02/16 07:13 Room Air 08/02/16 06:50 36.9 92 19 130/82 94 Room Air 08/01/16 23:35 Room Air 08/01/16 22:46 36.9 86 16 144/80 95 Room Air 08/01/16 15:55 36.8 84 18 117/68 98 Room Air 08/01/16 15:30 Room Air Lab Results: Results Past 24 Hours Test 08/02/16 09:28 Range/Units White Blood Count 11.67 4.8-10.8 K/uL Red Blood Count 4.55 4.2-5.4 M/uL Hemoglobin 14.0 12.0-16.0 g/dL Hematocrit 41.4 37-47 % Mean Corpuscular Volume 91.0 80-100 fL Mean Corpuscular Hemoglobin 30.8 25-34 pg Mean Corpuscular Hemoglobin Concent 33.8 32-36 g/dl RDW Standard Deviation 43.3 36.4-46.3 fL RDW Coefficient of Variation 13.0 11.5-14.5 % Platelet Count 260 130-400 K/uL Mean Platelet Volume 10.0 7.4-10.4 fL Sodium Level 138 136-145 mmol/L Potassium Level 3.7 3.5-5.1 mmol/L Chloride Level 105 98-107 mmol/L Carbon Dioxide Level 28 21-32 mmol/L Anion Gap 5.0 3-11 mmol/L Blood Urea Nitrogen 12 7-18 mg/dl Creatinine 1.00 0.60-1.20 mg/dl Est Creatinine Clear Calc Drug Dose 58.5 ml/min Estimated GFR () 66.6 Estimated GFR (Non- 57.4 BUN/Creatinine Ratio 12.2 10-20 Random Glucose 139 70-99 mg/dl Calcium Level 8.1 8.5-10.1 mg/dl Phosphorus Level 1.6 2.5-4.9 mg/dl Magnesium Level 1.8 1.8-2.4 mg/dl
[2016-08-02 10:27] LABS: BUN/CREATININE RATIO 12.2 (10-20); CALCIUM 8.1 mg/dl (8.5-10.1); MAGNESIUM 1.8 mg/dl (1.8-2.4); PHOSPHORUS 1.6 mg/dl (2.5-4.9); POTASSIUM 3.7 mmol/L (3.5-5.1)
[2016-08-02] MEDS ORDERED: PANT40TA PO (10:28)
[2016-08-02] MEDS ORDERED: POTASSIUM PHOS 3 MMOL/1 ML INFUSION IV STA (10:30)
--- NOTE | 2016-08-02 10:30 | Discharge Instructions ---
Discharge Instructions Date of Service Aug 02, 2016. Admission Reason for Admission: Arf (Acute Renal Failure) Discharge Discharge Diagnosis / Problem: Gastroenteritis,Acute Renal failure-improved Discharge Goals Goal(s): Prevent Disease Progression Activity Recommendations Activity Limitations: resume your previous activity . Instructions / Follow-Up Instructions / Follow-Up Dr Ritter on 08/09/16 at 10:[address] Avery's office will call with appointment Current Hospital Diet Patient's current hospital diet: AHA Diet (Heart Healthy) Discharge Diet Recommended Diet: AHA Diet (Heart Healthy) (Drink more fluid) Pending Studies Studies pending at discharge: no Laboratory Results Hemoglobin A1c Test 07/31/16 11:38 Range/Units Estimated Average Glucose 117 mg/dl Hemoglobin A1c 5.7 H 4.5-5.6 % Medical Emergencies . Who to Call and When: Medical Emergencies: If at any time you feel your situation is an emergency, please call 911 immediately. . Non-Emergent Contact Non-Emergency issues call your: Primary Care Provider . Past History Medical & Surgical History: (1) Gastroenteritis (2) Acute renal failure (3) HTN (hypertension) (4) ARF (acute renal failure) (5) Acute kidney injury (6) Hyperlipidemia (7) H/O hernia repair (8) S/P breast biopsy (9) s p excision cervical lymph node (10) S/P ORIF (open reduction internal fixation) fracture (11) H/O colonoscopy . "Provider Documentation" section prepared by Azalia Marie. VTE Core Measure Inpt VTE Proph given/why not?: Unfractionated heparin SQ
[2016-08-02] MEDS ORDERED: POTASSIUM PHOSPHATE INJ 24 MMOL in SODIUM CHLORIDE 0.9% 500ML 500 ML IV SCH (11:30)
--- NOTE | 2016-08-02 11:58 | Discharge Summary ---
Discharge Summary Date of Service Aug 02, 2016. Discharge Summary Admission Date: Jul 31, 2016 at 12:40 Discharge Date: Aug 02, 2016 Discharge Disposition: Home Principal Diagnosis: Gastroenteritis,Acute Renal failure-improved Secondary Diagnoses/Problems: Please see H&P and Hospital Progress note Consultations: Nephrology Medication Reconciliation New Medications: Pantoprazole Sodium (Protonix) 40 Mg Tab 1 TAB PO DAILY for 30 Days, #30 TAB 0 Refills Continued Medications: Aspirin (Aspirin) 81 Mg Tab 81 MG PO DAILY Atorvastatin (Atorvastatin Calcium) 10 Mg Tab 10 MG PO DAILY Lisinopril (Zestril) 20 Mg Tab 20 MG PO DAILY, TAB Multiple Vitamins W/ Minerals (Multi For Her 50+) 1 Tab Tab 1 TAB PO DAILY Admission Information HPI (per Admitting provider): 70 yo F with HTN and hyperlipidemia who was just started on ASA 81 and Lipitor two months ago presents with 5 days of nausea, vomiting and diarrhea. She states that on the first day of symptoms she had consumed home-canned applesauce that she had received in the fall. She also atea sandwich with coldcuts that were pre-packaged. The day prior she ate a crabcake at a local restaurant. She states this same kind of thing happened to her annually over the past two years, in those instances, her symptoms followed a vacation in [place]. At that time symptoms were attributed to eating foods that were rich and different from her norm. She denies any recent international travel and was in [facility] two weeks ago. She denies any recent sick contacts. She has no reptiles but does have a dog at home. She lives alone. She denies any visual changes, weakness or other neurologic symptom at this time. She is able to walk without issue. She states that her vomiting persisted for approx 3 days and then she developed a watery, non-bloody diarrhea that is essentially normal. She does report some lightheadedness without loss of consciousness, and she states that what brought her to the ER today was her lower blood pressure (which she checked at home) and her lack of urination. She denies any urinary urgency, hesitancy, pelvic pressure, flank pain, pelvic pain, fevers, chills, dysuria, chest pain, shortness of breath, sore throat, congestion, ear fullness, joint pain, muscle aches, or any issues with starting the new medications. She does report a small frontal headache around her eyes. Past Medical/Surgical History Medical Problems: (1) HTN (hypertension) Status: Chronic (2) Hyperlipidemia Status: Chronic Surgical Problems: (1) H/O colonoscopy Permanent Comment: 03/26/2015- adenomatous polyp, diverticulosis Status: Chronic (2) H/O hernia repair Status: Chronic (3) s p excision cervical lymph node Permanent Comment: benign Status: Resolved (4) S/P breast biopsy Permanent Comment: fibrocystic disease Status: Resolved (5) S/P ORIF (open reduction internal fixation) fracture Permanent Comment: left, tibia Status: Chronic Family History Cancer FH: heart disease FHx: gallbladder disease Hypertension Kidney disease Kidney stones Social History Smoking Status: Former Smoker Smokeless Tobacco Use: No Alcohol Use: socially Drug Use: none Marital Status: single Housing status: lives alone Occupational Status: retired Immunizations History of Influenza Vaccine: Yes Influenza Vaccine Date: Jan 31, 2016 History of Tetanus Vaccine?: No Tetanus Immunization Date: Oct 28, 2013 History of Pneumococcal: Yes Pneumococcal Date: May 15, 2014 History of Hepatitis B Vaccine: No Multi-Drug Resistant Organisms History of MDRO: No Allergies Coded Allergies: Ampicillin (Verified Allergy, Mild, RASH, 07/31/16) Amlodipine (Verified Allergy, Unknown, TACHYCARDIA, NAUSEA, 07/31/16) Amoxicillin (Verified Allergy, Unknown, ALLERGIC TO ALL PENICILLIN SUBSTITUTES, 07/31/16) Chlorthalidone (Verified Allergy, Unknown, SEVERE HYPONATREMIA, 07/31/16) Thiazide-Type Diuretics (Verified Allergy, Unknown, SEVERE HYPONATREMIA, ) Home Medications Scheduled Aspirin (Aspirin), 81 MG PO DAILY Atorvastatin (Atorvastatin Calcium), 10 MG PO DAILY Lisinopril (Zestril), 20 MG PO DAILY Multiple Vitamins W/ Minerals (Multi For Her 50+), 1 TAB PO DAILY Review of Systems Ten systems were reviewed and negative except as indicated in HPI above. Physical Ex - H&P Physical Exam Vital Signs Date Time Temp Pulse Resp B/P Pulse Ox O2 Delivery O2 Flow Rate FiO2 07/31/16 13:13 91 19 101/60 95 Room Air 07/31/16 11:47 101 07/31/16 11:47 99 83/54 07/31/16 11:20 36.4 82 16 70/52 98 Room Air GEN: WNWD, in no acute distress, alert and appropriate HEENT: NC/AT, PERRL, normal sclerae, mucous membranes are moist CARDIO: reg rate, S1/2 heard without m/g/r LUNGS: CTA bilaterally, no crackles, rales or wheezes, good diaphragmatic excursion ABD: soft, non-tender, non-distended, no rebound or guarding, +BS EXTREMITY: RP and DP palpable 2+ bilat, no LE swelling or edema, extremities are warm and well-perfused NEURO: CN 2-12 grossly intact, could not elicit knee reflexes, S1 reflexes 2/4 bilaterally, no gross focal deficits. MUSC: 5/5 strength throughout, moves easily around the bed and moving all extremities equally, no gross focal deficits SKIN: warm and dry, no rashes or lesions seen on lower legs arms, trunk or back area. Diagnostics - H&P Diagnostics Laboratory Results Results Past 24 Hours Test 07/31/16 11:38 07/31/16 13:48 07/31/16 13:50 Range/Units White Blood Count 20.75 4.8-10.8 K/uL Red Blood Count 5.67 4.2-5.4 M/uL Hemoglobin 17.6 12.0-16.0 g/dL Hematocrit 51.6 37-47 % Mean Corpuscular Volume 91.0 80-100 fL Mean Corpuscular Hemoglobin 31.0 25-34 pg Mean Corpuscular Hemoglobin Concent 34.1 32-36 g/dl Platelet Count 303 130-400 K/uL Mean Platelet Volume 10.9 7.4-10.4 fL Neutrophils (%) (Auto) 70.8 % Lymphocytes (%) (Auto) 12.5 % Monocytes (%) (Auto) 16.0 % Eosinophils (%) (Auto) 0.3 % Basophils (%) (Auto) 0.0 % Neutrophils # (Auto) 14.66 1.4-6.5 K/uL Lymphocytes # (Auto) 2.59 1.2-3.4 K/uL Monocytes # (Auto) 3.33 0.11-0.59 K/uL Eosinophils # (Auto) 0.07 0-0.5 K/uL Basophils # (Auto) 0.01 0-0.2 K/uL RDW Standard Deviation 43.9 36.4-46.3 fL RDW Coefficient of Variation 13.2 11.5-14.5 % Immature Granulocyte % (Auto) 0.4 % Immature Granulocyte # (Auto) 0.09 0.00-0.02 K/uL Prothrombin Time 10.9 9.0-12.0 SECONDS Prothromb Time International Ratio 1.0 0.9-1.1 Activated Partial Thromboplast Time 29.2 21.0-31.0 SECONDS Partial Thromboplastin Ratio 1.1 Sodium Level 135 136-145 mmol/L Potassium Level 3.7 3.5-5.1 mmol/L Chloride Level 96 98-107 mmol/L Carbon Dioxide Level 25 21-32 mmol/L Anion Gap 14.0 3-11 mmol/L Blood Urea Nitrogen 37 7-18 mg/dl Creatinine 2.90 0.60-1.20 mg/dl Est Creatinine Clear Calc Drug Dose 20.4 ml/min Estimated GFR () 18.4 Estimated GFR (Non- 15.9 BUN/Creatinine Ratio 12.8 10-20 Random Glucose 127 70-99 mg/dl Calcium Level 9.1 8.5-10.1 mg/dl Total Bilirubin 0.9 0.2-1 mg/dl Direct Bilirubin 0.2 0-0.2 mg/dl Aspartate Amino Transf (AST/SGOT) 15 15-37 U/L Alanine Aminotransferase (ALT/SGPT) 29 12-78 U/L Alkaline Phosphatase 88 45-117 U/L Total Protein 7.6 6.4-8.2 gm/dl Albumin 3.8 3.4-5.0 gm/dl Lipase 126 73-393 U/L Bedside Lactic Acid Venous 1.93 0.90-1.70 mmol/L Bedside Troponin I 0.000 0-0.045 ng/ml Microbiology Results 07/31/16 Blood Culture, Received Pending 07/31/16 Blood Culture, Received Pending CXR normal EKG sinus [id number], no ST changes Impression - H&P Impression Assessment and Plan 70 yoF with acute kidney injury and hypotension responsive to IVF 1. AMIE-baseline appears to be 1.5, currently 2.9 in the setting of acute gastroenteritis for the past 5 days. Clinical picture is consistent with this with hemoconcentration, elevated BUN/Creat, low normal sodium, low BP responsive to IVF and lightheadedness at home. She has been drinking Gatorade and Pedialyte at home. Cont IVF, urine studies pending to assess FeNa. Nephro consulted at patient's request--she is known to them. Repeat PRP in am. 2. AGE-uncertain etiology with causes including but not limited to foodborne illness such as staph or other pre-formed toxin versus botulism (ate home- canned foods on day illness began,however, no neurologic manifestations), community-acquired illness such as Norovirus (which may also be foodborne), renal failure, drugs (however, denies any abx). Normal TSH in 2016. Will screen for diabetes with A1C. She also may have a food intolerance that is unknown to her.? PUD or H pylori is also a remote possibility as this should cause a more regular functional dyspepsia, however, it is reasonable to screen her stool. Stool is watery and non-bloody so do not suspect any invasive enteropathies/inflammatory diarrhea such as salmonella present. Cont clear liquid diet and supportive care for now. 3. Leukocytosis-likely 2/2 hemoconcentration and inflammatory response with recent illness. No fevers, chills, or other signs of systemic infection. Monitor with daily CBC 4. Hypotension-likely 2/2 vomiting and diarrhea, fluid-responsive 5. HLP-recently started statin, cont this now. Full Code Clear liquid diet for now FULL CODE Dispo-likely home in next 1-2 days Angelita Davila, DO Hospitalist Level of Care Med/Surg Resuscitation Status FULL RESUSCITATION VTE Prophylaxis VTE Risk Assessment Done? Y/N: Yes Risk Level: Moderate Given or contraindicated: Unfractionated heparin SQ Social Service Consult None Apply Physical Exam (per Admitting): GEN: WNWD, in no acute distress, alert and appropriate HEENT: NC/AT, PERRL, normal sclerae, mucous membranes are moist CARDIO: reg rate, S1/2 heard without m/g/r LUNGS: CTA bilaterally, no crackles, rales or wheezes, good diaphragmatic excursion ABD: soft, non-tender, non-distended, no rebound or guarding, +BS EXTREMITY: RP and DP palpable 2+ bilat, no LE swelling or edema, extremities are warm and well-perfused NEURO: CN 2-12 grossly intact, could not elicit knee reflexes, S1 reflexes 2/4 bilaterally, no gross focal deficits. MUSC: 5/5 strength throughout, moves easily around the bed and moving all extremities equally, no gross focal deficits SKIN: warm and dry, no rashes or lesions seen on lower legs arms, trunk or back area. Hospital Course Acute Renal Failure Secondary to of acute gastroenteritis for the past 5 days with dehydration. She has been drinking Gatorade and Pedialyte at home. 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 No fevers, chills, or other signs of systemic infection. Improved Hypotension-likely 2/2 vomiting and diarrhea, fluid-responsive HLP-recently started statin, cont this now. Full Code FULL CODE Disposition Discharge home today Total time spent on discharge = 35 minutes This includes examination of the patient, discharge planning, medication reconciliation, and communication with other providers. Discharge Instructions Date of Service Aug 02, 2016. Admission Reason for Admission: Arf (Acute Renal Failure) Discharge Discharge Diagnosis / Problem: Gastroenteritis,Acute Renal failure-improved Discharge Goals Goal(s): Prevent Disease Progression Activity Recommendations Activity Limitations: resume your previous activity . Instructions / Follow-Up Instructions / Follow-Up Dr Ritter on 08/09/16 at 10:[address] Avery's office will call with appointment Current Hospital Diet Patient's current hospital diet: AHA Diet (Heart Healthy) Discharge Diet Recommended Diet: AHA Diet (Heart Healthy) (Drink more fluid) Pending Studies Studies pending at discharge: no Laboratory Results Hemoglobin A1c Test 07/31/16 11:38 Range/Units Estimated Average Glucose 117 mg/dl Hemoglobin A1c 5.7 H 4.5-5.6 % Medical Emergencies . Who to Call and When: Medical Emergencies: If at any time you feel your situation is an emergency, please call 911 immediately. . Non-Emergent Contact Non-Emergency issues call your: Primary Care Provider . Past History Medical & Surgical History: (1) Gastroenteritis (2) Acute renal failure (3) HTN (hypertension) (4) ARF (acute renal failure) (5) Acute kidney injury (6) Hyperlipidemia (7) H/O hernia repair (8) S/P breast biopsy (9) s p excision cervical lymph node (10) S/P ORIF (open reduction internal fixation) fracture (11) H/O colonoscopy . "Provider Documentation" section prepared by Azalia Marie. VTE Core Measure Inpt VTE Proph given/why not?: Unfractionated heparin SQ <Electronically signed by Azalia Marie M.D.> Additional Copies To Kevin Ritter MD
[2016-08-02 15:31] VITALS: BP 133/82; PULSE 71; TEMP 36.7; O2SAT 97
[2016-08-02 16:25] VITALS: BP 133/82; PULSE 71; TEMP 36.7; O2SAT 97
== END 2016-08-02 18:00 | disposition home or self-care (01) | DRG 392 ==
LOC: ENRESERV → ENRESERVTM → ENRESERVDT → C.EDB 11:17 → C.MSW 12:40 → EDBEDREQ 14:21
PROVIDERS: ADMIT Hospitalist; ATTEND Internal Medicine
DX: K52.9 Noninfective gastroenteritis and colitis, unspecified (principal); N17.9 Acute kidney failure, unspecified; E86.0 Dehydration; I95.9 Hypotension, unspecified; R51 Headache; I10 Essential (primary) hypertension; E78.5 Hyperlipidemia, unspecified; Z87.891 Personal history of nicotine dependence; Z79.82 Long term (current) use of aspirin; Z79.899 Other long term (current) drug therapy

== ENCOUNTER 2021-02-23 07:22 | Inpatient (IN) ==
--- NOTE | 2021-02-23 07:28 | Emergency Department Note ---
Impression & Plan Acute renal failure (ARF), Pulmonary nodule, Acute dehydration, Fall, Hyponatremia ED Provider Note NAME: LUIS ANGEL MEJIA AGE: 75 SEX: F : 1945 ARRIVES VIA: Ambulance INFORMANT: Patient, ED PROVIDER(S): Billy Andre MD Chief Complaint: Nausea, fall, decreased urine output HPI: Patient does present with concern for flank pain primarily on right side and has had some decreased urine output with associated nausea and dry heaves but without vomiting. This began last Monday. Patient is not had any i nfectious symptoms including cough fevers or chills. Patient states she has had similar episodes like this in the past 3 years prior to her the patient did have acute renal failure. Patient has had decreased p.o. intake overall since last Monday due to concerns for nausea and dry heaves. Patient does follow-up with nephrology and reportedly has fluid intake restrictions. Patient has no dysuria or hematuria. Patient last bowel movement was yesterday. Patient denies any blood in the stool. The patient did present today as well as the patient had a fall last night striking her forehead. Patient denies any LOC or blood thinner use. Patient has had a prior history of urinary retention and has required Villavicencio catheter. Patient denies any current nausea. Patient states that while she has had dry heaves and nausea the patient has been able to occasionally tolerate by mouth since Monday. Patient is vaccinated for COVID-19. Patient denies any recent heavy lifting twisting or turning. The patient states that with regard to the fall the patient states that she feels as though she will "tell her brain to move her legs but they do not seem to move appropriately." The patient denies any vertigo or dizziness. The patient denies any numbness or tingling. The patient denies any prior history of stroke. ROS: See HPI for pertinent positives and negatives. A total of 10 systems were reviewed and otherwise negative. Past medical history: See below Surgical history: See below Social history: See below Physical Exam: GENERAL: NAD, wearing glasses, wearing a mask, non-toxic. Head: Abrasion to forehead with mild TTP but no surrounding ecchymosis or hematoma no obvious deformity. EYE EXAM: Normal conjunctiva. PERRL, no anisocoria and EOM's grossly intact w/o pain. NECK: Supple, no nuchal rigidity, no adenopathy, non-tender. No signs of meningismus. LUNGS: Clear to auscultation. Normal chest wall mechanics. HEART: NSR, no MRG. ABDOMEN: Abdomen soft, non-tender, normo-active bowel sounds, no masses, no rebound or guarding. BACK: No CVA TTP. SKIN: No rashes and no bruising. UPPER EXTREMITIES: Upper extremities are grossly normal. No obvious deformity or TTP. LOWER EXTREMITIES: Grossly normal, no edema. No obvious deformity or TTP. NEURO EXAM: A&O x3, cranial nerves II-XII grossly intact, normal speech, moves all 4 extremities on command w/o issue. Good finger to nose, no drift, no sensory deficits. Differential diagnoses: Appendicitis, ovarian cyst, ovarian torsion, ectopic , TOA, PID, infections, diverticulitis, UTI, obstruction, mesenteric ischemia, aortic pathology, inflammatory bowel disease, renal colic, PUD, pancreatitis, biliary pathology, hernia, volvulus, constipation, as well as other pathologies. Course: Patient was seen and evaluated the bedside. Full history physical exam was performed. Imaging Studies: See Below Cardiac monitoring: An order was placed for continuous cardiac monitoring. The monitor shows a rate of 95 with sinus rhythm. MDM: Patient did present due to concern for recent fall as well as decreased urine output. Blood work was obtained bladder scan was performed which showed no evidence of urinary retention. Patient has mild white count of 15 but may be hemoconcentrated as the patient's hemoglobin is also elevated. The patient does have elevated creatinine to 4.7 BUN is 70. Anion gap of 13. Hyponatremia noted at 131. Glucose is mildly elevated at 130. Do not believe the patient is in DKA. Troponin is not detectable. Urinalysis shows multiple epithelial cells and does show oxalate crystals. Patient CT shows nonobstructing stone. Covid is negative. I did speak with the on-call hospitalist Haley JAMISON. At the time the patient's urinalysis was still pending. Antibiotics deferred at the time of admission. Patient was to be admitted by Dr. Marie. Past Med/Surg History Medical History Asymptomatic carotid artery stenosis CKD (chronic kidney disease), stage III HTN (hypertension) Hyperlipidemia JERI on CPAP Polycythemia Stenosis of left subclavian artery Surgical History H/O colonoscopy "03/26/2015- adenomatous polyp, diverticulosis" S/P breast biopsy (Unknown) "fibrocystic disease " S/P ORIF (open reduction internal fixation) fracture "left, tibia" Family History Sister Throat cancer Social History Smoking Status: Former smoker Hx Alcohol Use: Yes Alcohol type: wine Alcohol Intake Frequency: 4 or More x per/Week Feels Safe at Home: Yes Allergies Allergies Allergy/AdvReac Type Severity Reaction Status Date / Time ampicillin Allergy Mild RASH Verified 07/31/16 11:47 amlodipine Allergy Unknown TACHYCARDIA, Verified 07/31/16 11:47 NAUSEA amoxicillin Allergy Unknown ALLERGIC Verified 07/31/16 11:47 TO ALL PENICILLIN SUBSTITUTES chlorthalidone Allergy Unknown SEVERE Verified 07/31/16 11:47 HYPONATREMIA Thiazides Allergy Unknown SEVERE Verified 07/31/16 11:47 HYPONATREMIA Home Meds Home Medications Medication Instructions Recorded Confirmed aspirin 81 mg tablet 81 mg PO DAILY 02/23/21 02/23/21 atorvastatin 20 mg tablet 20 mg PO DAILY 02/23/21 02/23/21 cholecalciferol (vitamin D3) 10 10 mcg PO DAILY 02/23/21 02/23/21 mcg (400 unit) tablet lisinopril 30 mg tablet 30 mg PO DAILY 02/23/21 02/23/21 metoprolol succinate 50 mg 50 mg PO DAILY 02/23/21 02/23/21 tablet,extended release 24 hr multivitamin 1 tab PO DAILY 02/23/21 02/23/21 Results & Data (ED) Vital Signs Vital Signs - 24 hr 02/23/21 07:28 02/23/21 07:29 02/23/21 07:30 Temperature 36.7 C Temperature Source Oral Pulse Rate 100 H 90 102 H Pulse Rate [Right Finger] Pulse Rate from SpO2 Sensor 101 H 102 H Pulse Rhythm [Right Finger] Pulse Strength [Right Finger] Respiratory Rate 21 20 19 Respiratory Effort / Characteristics Respiratory Depth Respiratory Pattern Blood Pressure 100/43 L Blood Pressure [Right Arm] Blood Pressure Mean 62 Blood Pressure Mean [Right Arm] Blood Pressure Position [Right Arm] Pulse Oximetry 99 99 91 Oxygen Delivery Method Room Air Sepsis Recent Fever Within 48 Hours No Sepsis New/Unexplained Change in Mental Status No Sepsis Action Taken by Nursing No Action Required 02/23/21 07:40 02/23/21 07:50 02/23/21 08:00 Temperature Temperature Source Pulse Rate 105 H 104 H 98 H Pulse Rate [Right Finger] Pulse Rate from SpO2 Sensor 101 H Pulse Rhythm [Right Finger] Pulse Strength [Right Finger] Respiratory Rate 21 18 24 Respiratory Effort / Characteristics Respiratory Depth Respiratory Pattern Blood Pressure Blood Pressure [Right Arm] Blood Pressure Mean Blood Pressure Mean [Right Arm] Blood Pressure Position [Right Arm] Pulse Oximetry 90 Oxygen Delivery Method Sepsis Recent Fever Within 48 Hours Sepsis New/Unexplained Change in Mental Status Sepsis Action Taken by Nursing 02/23/21 08:10 02/23/21 08:20 02/23/21 08:30 Temperature Temperature Source Pulse Rate 96 H 97 H 92 H Pulse Rate [Right Finger] Pulse Rate from SpO2 Sensor 96 H Pulse Rhythm [Right Finger] Pulse Strength [Right Finger] Respiratory Rate 23 20 15 Respiratory Effort / Characteristics Respiratory Depth Respiratory Pattern Blood Pressure Blood Pressure [Right Arm] Blood Pressure Mean Blood Pressure Mean [Right Arm] Blood Pressure Position [Right Arm] Pulse Oximetry Oxygen Delivery Method Sepsis Recent Fever Within 48 Hours Sepsis New/Unexplained Change in Mental Status Sepsis Action Taken by Nursing 02/23/21 08:38 02/23/21 08:40 02/23/21 08:50 Temperature Temperature Source Pulse Rate 85 88 Pulse Rate [Right Finger] Pulse Rate from SpO2 Sensor Pulse Rhythm [Right Finger] Pulse Strength [Right Finger] Respiratory Rate 17 15 Respiratory Effort / Characteristics Respiratory Depth Respiratory Pattern Blood Pressure Blood Pressure [Right Arm] Blood Pressure Mean Blood Pressure Mean [Right Arm] Blood Pressure Position [Right Arm] Pulse Oximetry 95 Oxygen Delivery Method Room Air Sepsis Recent Fever Within 48 Hours Sepsis New/Unexplained Change in Mental Status Sepsis Action Taken by Nursing 02/23/21 09:00 02/23/21 09:10 02/23/21 09:23 Temperature Temperature Source Pulse Rate 118 H 111 H 93 H Pulse Rate [Right Finger] Pulse Rate from SpO2 Sensor Pulse Rhythm [Right Finger] Pulse Strength [Right Finger] Respiratory Rate 17 21 24 Respiratory Effort / Characteristics Respiratory Depth Respiratory Pattern Blood Pressure 100/62 Blood Pressure [Right Arm] Blood Pressure Mean 74 Blood Pressure Mean [Right Arm] Blood Pressure Position [Right Arm] Pulse Oximetry 98 Oxygen Delivery Method Sepsis Recent Fever Within 48 Hours Sepsis New/Unexplained Change in Mental Status Sepsis Action Taken by Nursing 02/23/21 09:30 02/23/21 09:40 02/23/21 09:50 Temperature Temperature Source Pulse Rate 115 H 93 H 103 H Pulse Rate [Right Finger] Pulse Rate from SpO2 Sensor Pulse Rhythm [Right Finger] Pulse Strength [Right Finger] Respiratory Rate 26 H 31 H 30 H Respiratory Effort / Characteristics Respiratory Depth Respiratory Pattern Blood Pressure 93/54 L Blood Pressure [Right Arm] Blood Pressure Mean 67 Blood Pressure Mean [Right Arm] Blood Pressure Position [Right Arm] Pulse Oximetry Oxygen Delivery Method Sepsis Recent Fever Within 48 Hours Sepsis New/Unexplained Change in Mental Status Sepsis Action Taken by Nursing 02/23/21 10:00 02/23/21 10:10 02/23/21 11:07 Temperature Temperature Source Pulse Rate 89 86 Pulse Rate [Right Finger] 92 H Pulse Rate from SpO2 Sensor Pulse Rhythm [Right Finger] Regular Pulse Strength [Right Finger] Normal Respiratory Rate 19 22 18 Respiratory Effort / Characteristics Non-Labored Respiratory Depth Normal Respiratory Pattern Regular Blood Pressure Blood Pressure [Right Arm] 111/58 L Blood Pressure Mean Blood Pressure Mean [Right Arm] 75 Blood Pressure Position [Right Arm] Lying Pulse Oximetry 94 97 Oxygen Delivery Method Room Air Room Air Sepsis Recent Fever Within 48 Hours Sepsis New/Unexplained Change in Mental Status Sepsis Action Taken by Nursing 02/23/21 13:00 Temperature Temperature Source Pulse Rate Pulse Rate [Right Finger] 96 H Pulse Rate from SpO2 Sensor Pulse Rhythm [Right Finger] Regular Pulse Strength [Right Finger] Normal Respiratory Rate 16 Respiratory Effort / Characteristics Non-Labored Respiratory Depth Normal Respiratory Pattern Regular Blood Pressure Blood Pressure [Right Arm] 106/89 Blood Pressure Mean Blood Pressure Mean [Right Arm] 94 Blood Pressure Position [Right Arm] Lying Pulse Oximetry 97 Oxygen Delivery Method Room Air Sepsis Recent Fever Within 48 Hours Sepsis New/Unexplained Change in Mental Status Sepsis Action Taken by Skilled Nursing Medications Current Medication List: was personally reviewed by me Laboratory Data Attestation: I reviewed the patient's lab results. Result diagrams: 02/23/21 07:51 02/23/21 07:51 Lab Results 02/23/21 02/23/21 02/23/21 Range/Units 07:51 07:51 10:41 WBC 15.02 H (4.8-10.8) K/uL RBC 5.29 (4.2-5.4) M/uL Hgb 16.6 H (12.0-16.0) g/dL Hct 48.4 H (37-47) % MCV 91.5 (80-100) fL MCH 31.4 (25-34) pg MCHC 34.3 (32-36) g/dL RDW Std Deviation 47.3 H (36.4-46.3) fL RDW Coeff of Tima 14.0 (11.5-14.5) % Plt Count 281 (130-400) K/uL MPV 11.2 H (7.4-10.4) fL Immature Gran % (Auto) 0.3 % Neut % (Auto) 71.6 % Lymph % (Auto) 12.9 % [place] % (Auto) 14.6 % Eos % (Auto) 0.5 % Baso % (Auto) 0.1 % Neut # (Auto) 10.73 H (1.4-6.5) K/uL Lymph # (Auto) 1.94 (1.2-3.4) K/uL [place] # (Auto) 2.20 H (0.11-0.59) K/uL Eos # (Auto) 0.08 (0-0.5) K/uL Baso # (Auto) 0.02 (0-0.2) K/uL Immature Gran # (Auto) 0.05 H (0.00-0.02) K/uL Sodium 131 L (136-145) mmol/L Potassium 3.7 (3.5-5.1) mmol/L Chloride 97 L (98-107) mmol/L Carbon Dioxide 21 (21-32) mmol/L Anion Gap 13.0 H (3-11) BUN 70 H (7-18) mg/dl Creatinine 4.74 H* (0.6-1.2) mg/dl Est Cr Clr Drug Dosing 10.7 ml/min Est GFR ( Amer) 9.8 ml/min Est GFR (Non-Af Amer) 8.5 ml/min BUN/Creatinine Ratio 14.6 (10-20) Glucose 130 H (70-99) mg/dl Calcium 9.4 (8.5-10.1) mg/dl Total Bilirubin 0.7 (0.2-1) mg/dl AST 13 L (15-37) U/L ALT 27 (12-78) U/L Alkaline Phosphatase 84 (45-117) U/L Troponin I < 0.015 (0-0.045) ng/ml Total Protein 7.5 (6.4-8.2) gm/dl Albumin 3.4 (3.4-5.0) gm/dl Globulin 4.1 H (2.5-4.0) gm/dl Albumin/Globulin Ratio 0.8 L (0.9-2) Lipase 161 (73-393) U/L Urine Color Dark Yellow Urine Appearance Cloudy A (Clear) Urine pH 5.0 (4.5-7.5) Ur Specific [place] 1.022 (1.000-1.030) Urine Protein 1+ H (Negative) Urine Glucose (UA) Negative (Negative) Urine Ketones 1+ H (Negative) Urine Blood Negative (Negative) Urine Nitrite Negative (Negative) Urine Bilirubin 2+ H (Negative) Urine Urobilinogen Negative (Negative) Ur Leukocyte Esterase 1+ H (Negative) Urine WBC (Auto) >30 H (0-5) /hpf Urine RBC (Auto) 0-4 (0-4) /hpf U Hyaline Cast (Auto) 10-30 H (0-5) /lpf U Epithel Cells (Auto) >30 H (0-5) /lpf Urine Bacteria (Auto) Negative (Negative) Ur Renal Epithelial Cell 0-5 (0-5) /lpf Calcium Oxalate Crystal Present A (None Prsent) Granular Casts 1-5 H (0) /lpf Urine Yeast Not Reportable COVID-19 Eval Order SARS-CoV-2 (PCR) (Negative) 02/23/21 02/23/21 Range/Units 11:05 11:05 WBC (4.8-10.8) K/uL RBC (4.2-5.4) M/uL Hgb (12.0-16.0) g/dL Hct (37-47) % MCV (80-100) fL MCH (25-34) pg MCHC (32-36) g/dL RDW Std Deviation (36.4-46.3) fL RDW Coeff of Tima (11.5-14.5) % Plt Count (130-400) K/uL MPV (7.4-10.4) fL Immature Gran % (Auto) % Neut % (Auto) % Lymph % (Auto) % [place] % (Auto) % Eos % (Auto) % Baso % (Auto) % Neut # (Auto) (1.4-6.5) K/uL Lymph # (Auto) (1.2-3.4) K/uL [place] # (Auto) (0.11-0.59) K/uL Eos # (Auto) (0-0.5) K/uL Baso # (Auto) (0-0.2) K/uL Immature Gran # (Auto) (0.00-0.02) K/uL Sodium (136-145) mmol/L Potassium (3.5-5.1) mmol/L Chloride (98-107) mmol/L Carbon Dioxide (21-32) mmol/L Anion Gap (3-11) BUN (7-18) mg/dl Creatinine (0.6-1.2) mg/dl Est Cr Clr Drug Dosing ml/min Est GFR ( Amer) ml/min Est GFR (Non-Af Amer) ml/min BUN/Creatinine Ratio (10-20) Glucose (70-99) mg/dl Calcium (8.5-10.1) mg/dl Total Bilirubin (0.2-1) mg/dl AST (15-37) U/L ALT (12-78) U/L Alkaline Phosphatase (45-117) U/L Troponin I (0-0.045) ng/ml Total Protein (6.4-8.2) gm/dl Albumin (3.4-5.0) gm/dl Globulin (2.5-4.0) gm/dl Albumin/Globulin Ratio (0.9-2) Lipase (73-393) U/L Urine Color Urine Appearance (Clear) Urine pH (4.5-7.5) Ur Specific [place] (1.000-1.030) Urine Protein (Negative) Urine Glucose (UA) (Negative) Urine Ketones (Negative) Urine Blood (Negative) Urine Nitrite (Negative) Urine Bilirubin (Negative) Urine Urobilinogen (Negative) Ur Leukocyte Esterase (Negative) Urine WBC (Auto) (0-5) /hpf Urine RBC (Auto) (0-4) /hpf U Hyaline Cast (Auto) (0-5) /lpf U Epithel Cells (Auto) (0-5) /lpf Urine Bacteria (Auto) (Negative) Ur Renal Epithelial Cell (0-5) /lpf Calcium Oxalate Crystal (None Prsent) Granular Casts (0) /lpf Urine Yeast COVID-19 Eval Order Covid19 at [facility] SARS-CoV-2 (PCR) NEGATIVE (Negative) Imaging Data Radiologist's Impression: Head CT 02/23/21 08:[address] DOSE: HISTORY: fall, forehead strike, diff ambulation TECHNIQUE: Multiaxial CT images of the head were performed without the use of i ntravenous contrast. Automated exposure control was utilized for this study. A dose lowering technique was utilized adhering to the principles of ALARA. Comparison: None. Findings: The paranasal sinuses and mastoid air cells are clear. The calvarium and skull base are intact. There is no mass, hematoma, midline shift, acute infarct. White matter hypodensity is nonspecific but suggestive of microvascular ischemic change. The ventricles and sulci demonstrate mild age-related involutional changes. Mild frontal scalp swelling. Impression: No acute intracranial abnormality. Mild frontal scalp swelling. ACT 112: Negative or not required by law. Electronically signed by: Doug Carver M.D. 02/23/2021 9:26 AM Abdomen/Pelvis CT 02/23/21 09:04 CT abd pelvis wo con CLINICAL HISTORY: ARF . Status post fall last night with flank pain. Decreased urine output. COMPARISON STUDY: No previous studies for comparison. CT DOSE: 1731.91 mGy.cm TECHNIQUE: Standard CT of the Abdomen and Pelvis was performed without IV contrast. A dose lowering technique was utilized adhering to the principles of ALARA. FINDINGS: Lung base: The lung bases are clear. However, there is a 7 mm noncalcified pulmonary nodule at the right lung base. Follow-up CT of the entire chest in 3 months recommended for further evaluation. Abdominal cavity: There is no evidence for abdominal mass, adenopathy or ascites. Liver: The liver is homogeneous in attenuation on these limited noncontrast images..There are multiple sharply defined low-attenuation lesion seen within the liver parenchyma most characteristic of hepatic cysts. Follow-up liver ultra sound could be obtained for further evaluation and confirmation. Spleen: The spleen is homogeneous in attenuation on these limited noncontrast images. Pancreas: The pancreas is homogeneous in attenuation on these limited noncontrast images. Gall Bladder: The gallbladder is well distended with no evidence for cholelithiasis, wall thickening or pericholecystic edema.. Adrenal glands: The adrenal glands are normal in size and attenuation on these limited noncontrast images. Kidneys: The kidneys are homogeneous in attenuation on these limited noncontrast images. There is a 7 mm nonobstructing right renal calculus. There is no evidence for left renal calculus or hydronephrosis bilaterally. There is no gross renal mass on these limited noncontrast images. Bowel: There is a small hiatal hernia with mucosal thickening. The bowel loops are normally placed within the abdomen and pelvis without evidence for dilatation or obstruction. There is extensive varela diverticulosis without evidence for diverticulitis. There is a normal appendix. There are no inflammatory changes or free air. Bladder: The bladder was partially contracted the time of this study. The bladder wall cannot be evaluated due to lack of intravenous contrast. : There is no evidence for pelvic mass or adenopathy. The prostate is mildly enlarged. Vasculature:There is no evidence for focal aneurysmal dilatation of the abdominal aorta. Prominent atherosclerotic calcification is present. Osseous structures: There is no acute osseous pathology. Extensive degenerative changes are seen involving the lower lumbar spine. IMPRESSION: 1. 7 mm nonobstructing right renal calculus. 2. Varela diverticulosis without evidence for diverticulitis. 3. 7 mm noncalcified right lower lobe pulmonary nodule. Follow-up CT of the entire chest in 3 months is recommended. 4. Sharply defined low attenuation lesions throughout the liver most characteristic of liver cysts. Follow-up liver ultrasound could be obtained for further evaluation. 5. Additional nonacute findings are delineated above. ACT 112: Positive. There are findings on this exam that require communication between the performing entity and the patient following Patient Test Result Information Act ([place] Act 112) guidelines. Electronically signed by: Brad Vickers 02/23/2021 9:34 AM Discharge Plan Visit Data Chief Complaint: Flank Pain Stated Complaint: Flank pain, decreased urinary output ED Provider: Billy Andre ED Midlevel Provider: Tim Bergeron Discharge Problem: Acute renal failure (ARF), Pulmonary nodule, Acute dehydration, Fall, Hyponatremia Patient Disposition: Admitted As Inpatient Forms Stand Alone Forms: My [facility] Prescriptions Prescriptions: No Action atorvastatin 20 mg tablet 20 mg PO DAILY RF: 0 multivitamin Tablet 1 tab PO DAILY RF: 0 metoprolol succinate 50 mg tablet extended release 24 hr 50 mg PO DAILY RF: 0 lisinopril 30 mg tablet 30 mg PO DAILY RF: 0 aspirin 81 mg Tablet 81 mg PO DAILY RF: 0 cholecalciferol (vitamin D3) 10 mcg (400 unit) Tablet 10 mcg PO DAILY RF: 0 Referrals Referrals: Kevin Ritter MD [Primary Care Provider] -
--- NOTE | 2021-02-23 07:57 | Communication Note ---
Date of Service: February 23, 2021 I saw the patient with the attending provider. Please refer to attending note for care plan. Resident Activity Tracking Resident Involvement: Resident Care Provided Care Provided: Adult ED
[2021-02-23 08:01] LABS: Basophils # (auto) 0.02 K/uL (0-0.2); Basophils % (auto) 0.1 %; Eosinophils # (auto) 0.08 K/uL (0-0.5); Eosinophils % (auto) 0.5 %; Hematocrit (blood only) 48.4 % (37-47); Hemoglobin 16.6 g/dL (12.0-16.0); Immature Granulocytes # (auto) 0.05 K/uL (0.00-0.02); Immature Granulocytes % (auto) 0.3 %; Lymphocytes # (auto) 1.94 K/uL (1.2-3.4); Lymphocytes % (auto) 12.9 %; Mean Corpuscular Hemoglobin 31.4 pg (25-34); Mean Corpuscular Hgb Conc 34.3 g/dL (32-36); Mean Corpuscular Volume 91.5 fL (80-100); Mean Platelet Volume 11.2 fL (7.4-10.4); Monocytes % (auto) 14.6 %; Neutrophils # (auto) 10.73 K/uL (1.4-6.5); Neutrophils % (auto) 71.6 %; Platelet Count 281 K/uL (130-400); RDW Standard Deviation 47.3 fL (36.4-46.3); Red Blood Count 5.29 M/uL (4.2-5.4); White Blood Count 15.02 K/uL (4.8-10.8)
[2021-02-23 08:51] LABS: Alanine Aminotransferase 27 U/L (12-78); Albumin Globulin Ratio 0.8 (0.9-2); Albumin Level 3.4 gm/dl (3.4-5.0); Alkaline Phosphatase 84 U/L (45-117); Aspartate Aminotransferase 13 U/L (15-37); BUN Creatinine Ratio 14.6 (10-20); Blood Urea Nitrogen 70 mg/dl (7-18); Calcium 9.4 mg/dl (8.5-10.1); Carbon Dioxide 21 mmol/L (21-32); Chloride 97 mmol/L (98-107); Creatinine Clr Calc Pharmacy 10.7 ml/min; Est GFR (African American) 9.8 ml/min; Est GFR (Non-African American) 8.5 ml/min; Globulin 4.1 gm/dl (2.5-4.0); Glucose 130 mg/dl (70-99); Lipase 161 U/L (73-393); Potassium 3.7 mmol/L (3.5-5.1); Sodium 131 mmol/L (136-145); Total Protein 7.5 gm/dl (6.4-8.2); Troponin I < 0.015 ng/ml (0-0.045)
--- NOTE | 2021-02-23 09:27 | CT Scan Report ---
HEAD CT NONCONTRAST CT DOSE: HISTORY: fall, forehead strike, diff ambulation TECHNIQUE: Multiaxial CT images of the head were performed without the use of intravenous contrast. A utomated exposure control was utilized for this study. A dose lowering technique was utilized adheri ng to the principles of ALARA. Comparison: None. Findings: The paranasal sinuses and mastoid air cells are clear. The calvarium and skull base are int act. There is no mass, hematoma, midline shift, acute infarct. White matter hypodensity is nonspecifi c but suggestive of microvascular ischemic change. The ventricles and sulci demonstrate mild age-rela addison involutional changes. Mild frontal scalp swelling. Impression: No acute intracranial abnormality. Mild frontal scalp swelling. ACT 112: Negative or not required by law. Electronically signed by: Doug Carver M.D. 02/23/2021 9:26 AM
[2021-02-23 09:30] LABS: Bilirubin,Total 0.7 mg/dl (0.2-1)
--- NOTE | 2021-02-23 09:35 | CT Scan Report ---
CT abd pelvis wo con CLINICAL HISTORY: ARF . Status post fall last night with flank pain. Decreased urine output. COMPARISON STUDY: No previous studies for comparison. CT DOSE: 1731.91 mGy.cm TECHNIQUE: Standard CT of the Abdomen and Pelvis was performed without IV contrast. A dose lowering technique was utilized adhering to the principles of ALARA. FINDINGS: Lung base: The lung bases are clear. However, there is a 7 mm noncalcified pulmonary nodule at the r ight lung base. Follow-up CT of the entire chest in 3 months recommended for further evaluation. Abdominal cavity: There is no evidence for abdominal mass, adenopathy or ascites. Liver: The liver is homogeneous in attenuation on these limited noncontrast images..There are multipl e sharply defined low-attenuation lesion seen within the liver parenchyma most characteristic of hepa tic cysts. Follow-up liver ultrasound could be obtained for further evaluation and confirmation. Spleen: The spleen is homogeneous in attenuation on these limited noncontrast images. Pancreas: The pancreas is homogeneous in attenuation on these limited noncontrast images. Gall Bladder: The gallbladder is well distended with no evidence for cholelithiasis, wall thickening or pericholecystic edema.. Adrenal glands: The adrenal glands are normal in size and attenuation on these limited noncontrast i mages. Kidneys: The kidneys are homogeneous in attenuation on these limited noncontrast images. There is a 7 mm nonobstructing right renal calculus. There is no evidence for left renal calculus or hydronephros is bilaterally. There is no gross renal mass on these limited noncontrast images. Bowel: There is a small hiatal hernia with mucosal thickening. The bowel loops are normally placed w ithin the abdomen and pelvis without evidence for dilatation or obstruction. There is extensive varela d iverticulosis without evidence for diverticulitis. There is a normal appendix. There are no inflammat ory changes or free air. Bladder: The bladder was partially contracted the time of this study. The bladder wall cannot be eval uated due to lack of intravenous contrast. : There is no evidence for pelvic mass or adenopathy. The prostate is mildly enlarged. Vasculature:There is no evidence for focal aneurysmal dilatation of the abdominal aorta. Prominent at herosclerotic calcification is present. Osseous structures: There is no acute osseous pathology. Extensive degenerative changes are seen inv olving the lower lumbar spine. IMPRESSION: 1. 7 mm nonobstructing right renal calculus. 2. Varela diverticulosis without evidence for diverticulitis. 3. 7 mm noncalcified right lower lobe pulmonary nodule. Follow-up CT of the entire chest in 3 months is recommended. 4. Sharply defined low attenuation lesions throughout the liver most characteristic of liver cysts. F ollow-up liver ultrasound could be obtained for further evaluation. 5. Additional nonacute findings are delineated above. ACT 112: Positive. There are findings on this exam that require communication between the performing entity and the patient following Patient Test Result Information Act ([place] Act 112) guidelines. Electronically signed by: Brad Vickers 02/23/2021 9:34 AM
[2021-02-23 10:51] LABS: Appearance Urine Cloudy (Clear); Bacteria Urine Automated Negative (Negative); Blood Urine Negative (Negative); Color Urine Dark Yellow; Epithelial Cell Urine Auto >30 /lpf (0-5); Glucose Urine UA Negative (Negative); Ketones Urine 1+ (Negative); Leukocyte Esterase Urine 1+ (Negative); Nitrite Urine Negative (Negative); Protein Urine 1+ (Negative); Specific Gravity Urine 1.022 (1.000-1.030); Urobilinogen Urine Negative (Negative); WBC Urine Automated >30 /hpf (0-5)
[2021-02-23 10:56] LABS: Bilirubin Urine 2+ (Negative)
[2021-02-23 11:13] LABS: Calcium Oxalate Crystals Urine Present (None Prsent); RBC Urine Automated 0-4 /hpf (0-4); Renal Epithelial Cells Urine 0-5 /lpf (0-5)
--- NOTE | 2021-02-23 12:00 | History & Physical Report ---
Date of Service February 23, 2021 Assessment & Plan (1) Acute kidney injury superimposed on CKD: (2) CKD (chronic kidney disease), stage III: Plan: -Admit to [facility] telemetry -Patient presenting from home with reports of nausea and decreased urine output x 6 days -In the ED, creatinine found to be 4.7 (baseline 1.0 on labs from 12/03/2020). History of similar presentation in 2015 in the setting of GI illness and lisinopril and chlorthalidone use. -? if GI illness causing a prerenal AMIE vs. patient has uremic symptoms from AMIE -No signs of obstruction on CT scan -Electrolytes and HCO3 acceptable, mild hyponatremia noted Na+ 131 -Patient was straight cathed for very small amount of concentrated urine in the ED. Villavicencio catheter was unable to be placed by ED nurse, monitor output very closely throughout the day today and reattempt Villavicencio insertion. -Generous IV hydration with NSS at 125/hour -Nephrology consult, Dr. Ware notified (3) Abnormal urinalysis: Plan: -May have a UTI -Start empiric IV ceftriaxone -Follow culture (4) HTN (hypertension): Plan: -Hold lisinopril due to AMIE, continue metoprolol -WBC 15 K -hemoconcentration may be contributing, does not appear septic (5) Polycythemia: Plan: -History of, baseline Hgb 15-16 -Hgb 16.6 today -hemoconcentration from dehydration may be contributing -Monitor CBC (6) Pulmonary nodule: Plan: -CT ABD/pelvis noted 7 mm noncalcified right lower lobe pulmonary nodule. Follow-up CT of the entire chest in 3 months is recommended. (7) Liver cyst: Plan: -CT ABD/pelvis noted Sharply defined low attenuation lesions throughout the liver most characteristic of liver cysts. Follow-up liver ultrasound could be obtained for further evaluation. -Liver ultrasound ordered (8) JERI on CPAP: Plan: -CPAP as per home settings (9) DVT prophylaxis: Plan: -SQ heparin History of Present Illness Chief Complaint: Nausea, decreased urine output Primary Care Provider: Kevin Ritter MD 75-year-old female with PMH HLD, JERI on CPAP, CKD stage III, left subclavian artery stenosis, asymptomatic carotid stenosis, polycythemia, and other problems listed below who presents to the ED for evaluation of nausea and decreased urine output. Patient reports a history of renal failure in 2014 that presented very similarly. She reports that about 6 days ago, she developed nausea and dry heaves. She reports that whenever she would eat anything, she would have diarrhea almost immediately after. Denies bright red bleeding per rectum or dark tarry stools. Has had some intermittent mid abdominal pain. Has noted decreased urine output over the past few days as well. Denies change in color of urine, dysuria. Reports that she has been keeping up with fluid intake. No chest pain or shortness of breath. Denies lightheadedness, dizziness, diaphoresis, syncopal events. No fevers or chills. In the ED, creatinine is found to be 4.7 (baseline 1.0). Patient is hemodynamically stable. Patient was straight cathed for a very small amount of concentrated urine in the ED. CT ABD/pelvis unremarkable for acute findings. Allergies Allergy/AdvReac Type Severity Reaction Status Date / Time ampicillin Allergy Mild RASH Verified 07/31/16 11:47 amlodipine Allergy Unknown TACHYCARDIA, Verified 07/31/16 11:47 NAUSEA amoxicillin Allergy Unknown ALLERGIC Verified 07/31/16 11:47 TO ALL PENICILLIN SUBSTITUTES chlorthalidone Allergy Unknown SEVERE Verified 07/31/16 11:47 HYPONATREMIA Thiazides Allergy Unknown SEVERE Verified 07/31/16 11:47 HYPONATREMIA Home Medications Medication Instructions Recorded Confirmed Type aspirin 81 mg tablet 81 mg PO DAILY 02/23/21 02/23/21 History atorvastatin 20 mg tablet 20 mg PO DAILY 02/23/21 02/23/21 History cholecalciferol (vitamin D3) 10 10 mcg PO DAILY 02/23/21 02/23/21 History mcg (400 unit) tablet lisinopril 30 mg tablet 30 mg PO DAILY 02/23/21 02/23/21 History metoprolol succinate 50 mg 50 mg PO DAILY 02/23/21 02/23/21 History tablet,extended release 24 hr multivitamin 1 tab PO DAILY 02/23/21 02/23/21 History Past Med/Surg History Medical History Asymptomatic carotid artery stenosis CKD (chronic kidney disease), stage III HTN (hypertension) Hyperlipidemia JERI on CPAP Polycythemia Stenosis of left subclavian artery Surgical History H/O colonoscopy "03/26/2015- adenomatous polyp, diverticulosis" S/P breast biopsy (Unknown) "fibrocystic disease " S/P ORIF (open reduction internal fixation) fracture "left, tibia" Family History Sister Throat cancer Social History Smoking Status: Former smoker Hx Alcohol Use: Yes Alcohol type: wine Alcohol Intake Frequency: 4 or More x per/Week Feels Safe at Home: Yes Review of Systems Review of Systems: ROS per HPI, all other systems reviewed and negative Physical Exam Constitutional: WD/WN, vitals as above Eyes: PERRL, conjunctivae normal, anicteric sclerae ENMT: external ear and nose normal, oropharynx normal Respiratory: normal respiratory effort, lungs clear to auscultation Cardiovascular: Rate/Rhythm: regular rate and regular rhythm Vessels: normal peripheral pulses Extremities: no edema Gastrointestinal (Abdomen): normal bowel sounds, soft, nontender, no hepatospl enomegaly Musculoskeletal: no cyanosis or clubbing, extremities motor strength 5/5 Skin: no rashes, warm and dry Neurologic: PERRL, EOMI, accommodation nl, no face palsy, no dysarthria Psychiatric: A+Ox3, euthymic affect Results & Data Results & Data ([facility]) Vital Signs (Past 12 Hours) Vital Signs Temp Pulse Pulse Resp BP BP Pulse Ox 02/23/21 11:07 92 H 18 111/58 L 97 02/23/21 10:10 86 22 94 02/23/21 10:00 89 19 02/23/21 09:50 103 H 30 H 02/23/21 09:40 93 H 31 H 02/23/21 09:30 115 H 26 H 93/54 L 02/23/21 09:23 93 H 24 02/23/21 09:10 111 H 21 02/23/21 09:00 118 H 17 100/62 98 02/23/21 08:50 88 15 02/23/21 08:40 85 17 02/23/21 08:38 95 02/23/21 08:30 92 H 15 02/23/21 08:20 97 H 20 02/23/21 08:10 96 H 23 02/23/21 08:00 98 H 24 02/23/21 07:50 104 H 18 02/23/21 07:40 105 H 21 90 02/23/21 07:30 102 H 19 91 02/23/21 07:29 36.7 C 90 20 100/43 L 99 02/23/21 07:28 100 H 21 99 Laboratory Results Short CBC 02/23/21 Range/Units 07:51 WBC 15.02 H (4.8-10.8) K/uL Hgb 16.6 H (12.0-16.0) g/dL Hct 48.4 H (37-47) % Plt Count 281 (130-400) K/uL BMP 02/23/21 07:51 Sodium 131 L Potassium 3.7 Chloride 97 L Carbon Dioxide 21 BUN 70 H Creatinine 4.74 H* Glucose 130 H Calcium 9.4 Cardiac Enzymes 02/23/21 Range/Units 07:51 Troponin I < 0.015 (0-0.045) ng/ml Liver Function 02/23/21 Range/Units 07:51 Total Bilirubin 0.7 (0.2-1) mg/dl AST 13 L (15-37) U/L ALT 27 (12-78) U/L Alkaline Phosphatase 84 (45-117) U/L Albumin 3.4 (3.4-5.0) gm/dl Urine 02/23/21 Range/Units 10:41 Urine Color Dark Yellow Urine Appearance Cloudy A (Clear) Urine pH 5.0 (4.5-7.5) Ur Specific Stanton 1.022 (1.000-1.030) Urine Protein 1+ H (Negative) Urine Glucose (UA) Negative (Negative) Diagnostic Findings Head CT 02/23/21 08:[address] DOSE: HISTORY: fall, forehead strike, diff ambulation TECHNIQUE: Multiaxial CT images of the head were performed without the use of intravenous contrast. Automated exposure control was utilized for this study. A dose lowering technique was utilized adhering to the principles of ALARA. Comparison: None. Findings: The paranasal sinuses and mastoid air cells are clear. The calvarium and skull base are intact. There is no mass, hematoma, midline shift, acute infarct. White matter hypodensity is nonspecific but suggestive of microvascular ischemic change. The ventricles and sulci demonstrate mild age-related involutional changes. Mild frontal scalp swelling. Impression: No acute intracranial abnormality. Mild frontal scalp swelling. ACT 112: Negative or not required by law. Electronically signed by: Doug Carver M.D. 02/23/2021 9:26 AM Abdomen/Pelvis CT 02/23/21 09:04 CT abd pelvis wo con CLINICAL HISTORY: ARF . Status post fall last night with flank pain. Decreased urine output. COMPARISON STUDY: No previous studies for comparison. CT DOSE: 1731.91 mGy.cm TECHNIQUE: Standard CT of the Abdomen and Pelvis was performed without IV c ontrast. A dose lowering technique was utilized adhering to the principles of ALARA. FINDINGS: Lung base: The lung bases are clear. However, there is a 7 mm noncalcified pulmonary nodule at the right lung base. Follow-up CT of the entire chest in 3 months recommended for further evaluation. Abdominal cavity: There is no evidence for abdominal mass, adenopathy or ascites. Liver: The liver is homogeneous in attenuation on these limited noncontrast images..There are multiple sharply defined low-attenuation lesion seen within the liver parenchyma most characteristic of hepatic cysts. Follow-up liver ultrasound could be obtained for further evaluation and confirmation. Spleen: The spleen is homogeneous in attenuation on these limited noncontrast images. Pancreas: The pancreas is homogeneous in attenuation on these limited noncontrast images. Gall Bladder: The gallbladder is well distended with no evidence for cholelithiasis, wall thickening or pericholecystic edema.. Adrenal glands: The adrenal glands are normal in size and attenuation on these limited noncontrast images. Kidneys: The kidneys are homogeneous in attenuation on these limited noncontrast images. There is a 7 mm nonobstructing right renal calculus. There is no evidence for left renal calculus or hydronephrosis bilaterally. There is no gross renal mass on these limited noncontrast images. Bowel: There is a small hiatal hernia with mucosal thickening. The bowel loops are normally placed within the abdomen and pelvis without evidence for dilatation or obstruction. There is extensive varela diverticulosis without evidence for diverticulitis. There is a normal appendix. There are no inflammatory changes or free air. Bladder: The bladder was partially contracted the time of this study. The danica dder wall cannot be evaluated due to lack of intravenous contrast. : There is no evidence for pelvic mass or adenopathy. The prostate is mildly enlarged. Vasculature:There is no evidence for focal aneurysmal dilatation of the abdominal aorta. Prominent atherosclerotic calcification is present. Osseous structures: There is no acute osseous pathology. Extensive degenerative changes are seen involving the lower lumbar spine. IMPRESSION: 1. 7 mm nonobstructing right renal calculus. 2. Varela diverticulosis without evidence for diverticulitis. 3. 7 mm noncalcified right lower lobe pulmonary nodule. Follow-up CT of the entire chest in 3 months is recommended. 4. Sharply defined low attenuation lesions throughout the liver most characteristic of liver cysts. Follow-up liver ultrasound could be obtained for further evaluation. 5. Additional nonacute findings are delineated above. ACT 112: Positive. There are findings on this exam that require communication between the performing entity and the patient following Patient Test Result Information Act ([place] Act 112) guidelines. Electronically signed by: Brad Vickers 02/23/2021 9:34 AM Code Status & VTE Plan Code Status Patient is a full code as per my discussion with her. VTE Prophylaxis Plan VTE Prophylaxis will be ordered: Yes Supervising Physician Co-Signing Physician Notes Attending addendum The patient was seen and examined in medical telemetry unit She was admitted with acute dehydration and acute AMIE Has been complaining of less urine output for the last 2 to 3 days with some nausea and vomiting Has been generally weak and lethargic On examination No apparent distress at rest but looked depressed Obese, hemodynamically stable with blood pressure on the lower side at 103/64 Chest-decreased breath sounds bilaterally Heart-S1-S2, regular Abdomen-distended, soft, bowel sound present and renal angles are not tender Extremities-trace edema bilaterally Her admission labs, EKG and imaging studies reviewed Has AMIE likely secondary to dehydration with oliguria/anuria Nephrology consulted Adequate intravenous fluid and more oral intake Agree with assessment and plan as outlined above by Haley Marie
[2021-02-23] MEDS ORDERED: SODIUM CHLORIDE 0.9% 1000ML 1,000 ML IV SCH (16:58)
[2021-02-23] MEDS ORDERED: ACETAMINOPHEN 325 MG TAB PO PRN (16:58)
[2021-02-23] MEDS: HEPARIN SOD 5,000 UNIT/0.5 ML VIAL SQ SCH ×2 (17:45→20:55)
[2021-02-23] MEDS: SODIUM CHLORIDE 0.9% 1000ML 1,000 ML IV SCH (17:45)
[2021-02-23] MEDS: cefTRIAXone SODIUM 2,000 MG in DEXTROSE 5% 50 ML IV SCH (17:45)
--- NOTE | 2021-02-23 21:43 | Consultation Report ---
NEPHROLOGY CONSULTATION NOTE DATE OF CONSULTATION: 02/23/2021. REASON FOR CONSULTATION: Acute renal failure. HISTORY OF PRESENT ILLNESS: The patient is a 75-year-old female who presented to the Emergency Depar tment earlier today because of nausea, dry heaves, poor urine output over the last few days. She has not been eating much solid food, but she is trying to keep up with her fluid intake. She is not on any diuretics or NSAIDs as an outpatient. She does take lisinopril, but even that she did not take f or the last 2 days prior to hospitalization. Her blood work was found to be abnormal with a creatini ne of 4.7. Her baseline creatinine was 1.0 as of 12/03/2020. She has a history of similar presentat ion in 2015 in the setting of GI illness with acute renal failure. She did recover completely from t he episode of acute renal failure back then. Since being in the Emergency Department, she has receiv ed some IV fluid. She did get a CT abdomen and pelvis which did not show any hydronephrosis, but the re was a small nonobstructing kidney stone in the right. Her white count is also elevated at 15,000. Urine dipstick was done and shows active urine sediment with lots of epithelial cells and hyaline c ast as well as granular cast and protein. ALLERGIES: List was reviewed in detail and is as per the reconciliation list. MEDICATIONS: Home medication list was reviewed in detail and includes aspirin, Lipitor 20, vitamin D , lisinopril 30, metoprolol, multivitamin. PAST MEDICAL AND SURGICAL HISTORY: Asymptomatic carotid artery disease, chronic kidney disease stage III, baseline creatinine most recently 1.0, hypertension, hyperlipidemia, obstructive sleep apnea on CPAP, history of polycythemia, history of stenosis of left subclavian artery, breast biopsy, open re duction and internal fixation of left tibial fracture. FAMILY HISTORY: Negative for renal disease or dialysis. SOCIAL HISTORY: She is a former smoker. She is a . She lives by herself at home. Alcohol int macy is about 4 times per week. REVIEW OF SYSTEMS: Some dry heaves, nausea and poor appetite for the last 5 days, feeling weak and s ick and was having decreased urinary output for the last few days. PHYSICAL EXAMINATION: GENERAL: Elderly white female who is not in any overt respiratory distress. She is awake, alert, or iented x3. HEENT: Mucous membranes are moist. NECK: Supple. No jugular venous distention. VITAL SIGNS: Blood pressure is 106/89, pulse rate 96, temperature 36.7, 97% on room air. Mucous mem brane is moist. CHEST: Bilateral clear to auscultation. HEART: S1 and S2, regular. ABDOMEN: Soft, nontender. EXTREMITIES: Show no edema. SKIN: Shows no rash. LABORATORY TEST: Baseline creatinine 1.0. Current creatinine is 4.74. WBC count is 15,000, hemoglo bin is higher than baseline at 16.6, platelet count 281. Abdomen and pelvis CT scan was done, which shows a 7 mm nonobstructive right kidney stone, but otherw ise fairly unremarkable findings. Urine sediment is quite active with lots of epithelial cells, hyal ine casts, granular casts. ASSESSMENT AND PLAN: A 75-year-old female admitted with 5-6 days history of not feeling well, poor a ppetite, dry heaves, nausea and decreased urine output. She was found to have acute renal failure fo r which I have been consulted. Acute renal failure from a baseline creatinine of 1.0. Current creatinine of 4.74 in a span of about 3 months' definitely qualifies as acute renal failure. Given her history, it is quite possible that this is a case of simple prerenal. However, urine sediment is somewhat concerning that she may have progressed from prerenal state to an acute tubular necrosis state. For now, I will continue with IV fluid with normal saline. Blood work from tomorrow and her response to the IV fluid will further ca tegorize the etiology of acute renal failure. CT abdomen already done and she does not have obstruct mary uropathy. I will not be doing any detailed serological workup at this time, at least for the nex t one day. She does not need dialysis at this time. She does have hyponatremia, likely hypovolemic h yponatremia. For that, I will also continue with the normal saline. I would hold lisinopril. Do not use any contrast agent, NSAIDs, RACHEAL or ARB. It is reasonable to treat her as a possible case of uri nary tract infection, pending urine culture report. No further action is needed for the 7 mm nonobst ructive renal stone at this time, I will continue to follow. Repeat renal panel later today and then once daily. Job ID: [id number]
[2021-02-24] MEDS: SODIUM CHLORIDE 0.9% 1000ML 1,000 ML IV SCH ×3 (01:38→18:19)
[2021-02-24] MEDS: HEPARIN SOD 5,000 UNIT/0.5 ML VIAL SQ SCH ×3 (06:10→21:42)
--- NOTE | 2021-02-24 07:35 | Ultrasound Report ---
US liver HISTORY: 75 years-old Female f/u liver cysts on CT follow-up study in a patient with reported hepati c cysts COMPARISON: CT abdomen and pelvis 02/23/2021, abdominal ultrasound 08/01/2016 TECHNIQUE: Multiple real-time sonographic images of the abdominal right upper quadrant were obtained assessing grayscale appearance and color flow FINDINGS: The visualized pancreas appears normal. Echogenic liver compatible with hepatic steatosis. Numerous h epatic cysts measure up to 2.1 x 2.3 x 2.8 cm. No suspicious hepatic mass lesions identified. The gal lbladder is unremarkable without shadowing cholelithiasis, wall thickening or pericholecystic fluid. Normal common bile duct measures 5 mm. Imaged right kidney is unremarkable without hydronephrosis. IMPRESSION: 1. Unremarkable gallbladder without biliary ductal dilation. 2. Hepatic steatosis. 3. Numerous hepatic cysts redemonstrated. ACT 112: Negative or not required by law. The above report was generated using voice recognition software. It may contain grammatical, syntax o r spelling errors. Electronically signed by: Mikael Phillips M.D. 02/24/2021 7:34 AM
[2021-02-24 08:30] LABS: Hematocrit (blood only) 44.1 % (37-47); Hemoglobin 14.9 g/dL (12.0-16.0); Mean Corpuscular Hgb Conc 33.8 g/dL (32-36); Mean Corpuscular Volume 91.7 fL (80-100); Mean Platelet Volume 10.8 fL (7.4-10.4); Platelet Count 271 K/uL (130-400); RDW Standard Deviation 47.9 fL (36.4-46.3); Red Blood Count 4.81 M/uL (4.2-5.4); White Blood Count 10.35 K/uL (4.8-10.8)
[2021-02-24] MEDS: METOPROLOL SUCC 50MG EXT REL TAB PO SCH (09:03)
[2021-02-24 09:07] LABS: BUN Creatinine Ratio 19.9 (10-20); Calcium 8.6 mg/dl (8.5-10.1); Creatinine Clr Calc Pharmacy 14.9 ml/min; Est GFR (Non-African American) 11.3 ml/min; Potassium 3.4 mmol/L (3.5-5.1)
[2021-02-24] MEDS ORDERED: POTASSIUM CHLORIDE CRTAB 20 MEQ TABCR PO STA (09:34)
--- NOTE | 2021-02-24 09:41 | Nephrology Progress Note ---
Date of Service February 24, 2021 Assessment & Plan Admission and Anticipated Discharge Date Admission Date: February 23, 2021 Subjective No new issues. Making urine. Feels better. PHYSICAL EXAMINATION: GENERAL: Elderly white female who is not in any overt respiratory distress. She is awake, alert, oriented x3. HEENT: Mucous membranes are moist. NECK: Supple. No jugular venous distention. CHEST: Bilateral clear to auscultation. HEART: S1 and S2, regular. ABDOMEN: Soft, nontender. EXTREMITIES: Show no edema. SKIN: Shows no rash. LABORATORY TEST: Baseline creatinine 1.0. Adx creatinine is 4.74. Now in 3's. Abdomen and pelvis CT scan was done, which shows a 7 mm nonobstructive right kidney stone, but otherwise fairly unremarkable findings. Urine sediment is quite active with lots of epithelial cells, hyaline casts, granular casts. ASSESSMENT AND PLAN: A 75-year-old female admitted with 5-6 days history of not feeling well, poor appetite, dry heaves, nausea and decreased urine output. She was found to have acute renal failure for which I have been consulted. Acute renal failure from a baseline creatinine of 1.0. Current creatinine of 4.74 in a span of about 3 months' definitely qualifies as acute renal failure. Appears to be a case of simple prerenal. For now, I will continue with IV fluid with normal saline. CT abdomen already done and she does not have obstructive uropathy. I will not be doing any detailed serological workup at this time, at least for the next one day. She does have hyponatremia, likely hypovolemic hyponatremia. For that, I will also continue with the normal saline. I would hold lisinopril. Do not use any contrast agent, NSAIDs, RACHEAL or ARB. It is reasonable to treat her as a possible case of urinary tract infection, pending urine culture report. No further action is needed for the 7 mm nonobstructive renal stone at this time, I will continue to follow. Repeat renal panel once daily Lower iv fluid to 100 /hr-NS If creat comes down to the 2 range can be discharged tomorrow. . Results & Data ([facility]) Vital Signs (Past 12 Hours) Vital Signs Temp Pulse Pulse Resp BP BP Pulse Ox 02/24/21 07:51 36.4 C L 101 H 19 145/83 H 95 02/24/21 04:39 36.6 C 92 H 18 90/52 L 96 02/24/21 00:19 92 H 02/23/21 23:22 36.7 C 94 H 18 90/58 L 95
--- NOTE | 2021-02-24 17:22 | Hospitalist Progress Note ---
Date of Service February 24, 2021 Assessment & Plan (1) Acute kidney injury superimposed on CKD: Plan: -Patient presenting from home with reports of nausea and decreased urine output x 6 days -In the ED, creatinine found to be 4.7 (baseline 1.0 on labs from 12/03/2020). History of similar presentation in 2015 in the setting of GI illness and lisinopril and chlorthalidone use. -GI illness causing a prerenal AMIE vs. patient has uremic symptoms from AMIE -No signs of obstruction on CT scan -Electrolytes and HCO3 acceptable, mild hyponatremia noted Na+ 131 -Patient was straight cathed for very small amount of concentrated urine in the ED. -Villavicencio catheter was unable to be placed by ED nurse, monitor output very closely throughout the day today and reattempt Villavicencio insertion. -Generous IV hydration with NSS at 125/hour -Nephrology consult-appreciate input and recommendation -She has been feeling much better this morning -Creatinine has been trending down from 4.7 on admission to 3.7 as of 02/24/2021 -We will continue intravenous fluid and monitor BMP tomorrow and likely discharge tomorrow (2) CKD (chronic kidney disease), stage III: (3) Abnormal urinalysis: Plan: -May have a UTI -Start empiric IV ceftriaxone -Follow culture-urine is growing gram-negative bacilli, await sensitivity -Continue IV ceftriaxone for now (4) HTN (hypertension): Plan: -Hold lisinopril due to AMIE, continue metoprolol -WBC 15 K -hemoconcentration may be contributing, does not appear septic (5) Polycythemia: Plan: -History of, baseline Hgb 15-16 -Hgb 16.6 today -hemoconcentration from dehydration may be contributing -Monitor CBC (6) Pulmonary nodule: Plan: -CT ABD/pelvis noted 7 mm noncalcified right lower lobe pulmonary nodule. Follow-up CT of the entire chest in 3 months is recommended. (7) Liver cyst: Plan: -CT ABD/pelvis noted Sharply defined low attenuation lesions throughout the liver most characteristic of liver cysts. Follow-up liver ultrasound could be obtained for further evaluation. -Liver ultrasound ordered (8) JERI on CPAP: Plan: -CPAP as per home settings (9) DVT prophylaxis: Plan: -SQ heparin Admission and Anticipated Discharge Date Admission Date: February 23, 2021 Subjective 02/24/2021 The patient was seen and examined in medical telemetry unit She has been feeling much better Denies any significant symptoms Review of Systems Review of Systems: All systems reviewed and are unremarkable except as noted below Gastrointestinal: No abdominal discomfort and no nausea no vomiting Physical Exam Physical Exam: Sitting on a chair without any acute distress Constitutional: well developed and well nourished; not ill appearing Eyes: PERRL, conjunctivae normal, anicteric sclerae ENMT: external ear and nose normal, oropharynx normal Neck: trachea midline, no thyromegaly Respiratory: no respiratory distress and no cough Auscultation: lungs clear to auscultation bilaterally Cardiovascular: Rate/Rhythm: regular rate and regular rhythm; not tachycardic Heart Sounds: normal S1 and normal S2; no murmur Extremities: no edema Gastrointestinal (Abdomen): Inspection/Auscultation: + abdomen distended Percussion/Palpation: abdomen soft; abdomen nontender Musculoskeletal: No acute arthritis in any joint Neurologic: Alert, awake and oriented x3. No focal sensory and motor deficit appreciated Psychiatric: A+Ox3, euthymic affect Lymphatic: no cervical or axillary lymphadenopathy Results & Data Results & Data ([facility]) Vital Signs (Past 12 Hours) Vital Signs Temp Pulse Resp BP Pulse Ox 02/24/21 15:41 36.8 C 79 18 99/63 L 96 02/24/21 12:07 36.7 C 114 H 18 105/66 90 02/24/21 07:51 36.4 C L 101 H 19 145/83 H 95 Laboratory Results Short CBC 02/24/21 Range/Units 08:09 WBC 10.35 (4.8-10.8) K/uL Hgb 14.9 (12.0-16.0) g/dL Hct 44.1 (37-47) % Plt Count 271 (130-400) K/uL BMP 02/24/21 08:09 Sodium 134 L Potassium 3.4 L Chloride 103 Carbon Dioxide 19 L BUN 74 H Creatinine 3.74 H D Glucose 97 Calcium 8.6 Medications Administered Current Inpatient Medications Acetaminophen (Acetaminophen 325 Mg Tab) 650 mg PO Q4H PRN PRN Reason: pain/fever Stop: 03/25/21 16:57 Heparin Sodium (Porcine) (Heparin Sod 5,000 Unit/0.5 Ml Vial) 5,000 units SQ Q8 JANKI Stop: 03/25/21 17:14 Last Admin: 02/24/21 12:32 Dose: 5,000 units Documented by: Sodium Chloride (Nss 1000ml) 1,000 mls @ 100 mls/hr IV .Q10H [facility] Stop: 03/25/21 13:44 Last Admin: 02/24/21 09:03 Dose: 125 mls/hr Documented by: Ceftriaxone Sodium 2,000 mg/ (Dextrose) 70 mls @ 100 mls/hr IV Q24H [facility]; Protocol Stop: 02/28/21 17:59 Last Infusion: 02/23/21 19:46 Dose: Infused Documented by: Metoprolol Succinate (Metoprolol Succ 50mg Ext Rel Tab) 50 mg PO DAILY [facility] Stop: 03/26/21 08:59 Last Admin: 02/24/21 09:03 Dose: 50 mg Documented by:
[2021-02-24] MEDS: cefTRIAXone SODIUM 2,000 MG in DEXTROSE 5% 50 ML IV SCH (18:18)
[2021-02-25] MEDS: SODIUM CHLORIDE 0.9% 1000ML 1,000 ML IV SCH ×2 (02:19→11:47)
[2021-02-25] MEDS: HEPARIN SOD 5,000 UNIT/0.5 ML VIAL SQ SCH (06:21)
[2021-02-25] MEDS: METOPROLOL SUCC 50MG EXT REL TAB PO SCH (07:58)
[2021-02-25 08:00] LABS: Basophils # (auto) 0.02 K/uL (0-0.2); Basophils % (auto) 0.2 %; Eosinophils # (auto) 0.22 K/uL (0-0.5); Eosinophils % (auto) 2.6 %; Hematocrit (blood only) 44.5 % (37-47); Hemoglobin 14.6 g/dL (12.0-16.0); Immature Granulocytes # (auto) 0.08 K/uL (0.00-0.02); Immature Granulocytes % (auto) 0.9 %; Lymphocytes # (auto) 1.62 K/uL (1.2-3.4); Lymphocytes % (auto) 18.8 %; Mean Corpuscular Hgb Conc 32.8 g/dL (32-36); Mean Corpuscular Volume 94.5 fL (80-100); Mean Platelet Volume 10.9 fL (7.4-10.4); Monocytes # (auto) 1.31 K/uL (0.11-0.59); Monocytes % (auto) 15.2 %; Neutrophils # (auto) 5.36 K/uL (1.4-6.5); Neutrophils % (auto) 62.3 %; Platelet Count 279 K/uL (130-400); RDW Coefficient of Variation 14.1 % (11.5-14.5); RDW Standard Deviation 49.5 fL (36.4-46.3); Red Blood Count 4.71 M/uL (4.2-5.4); White Blood Count 8.61 K/uL (4.8-10.8)
[2021-02-25 09:18] LABS: BUN Creatinine Ratio 36.8 (10-20); Calcium 8.9 mg/dl (8.5-10.1); Creatinine Clr Calc Pharmacy 36.7 ml/min; Est GFR (African American) 37.8 ml/min; Est GFR (Non-African American) 32.6 ml/min; Magnesium 2.3 mg/dl (1.8-2.4); Potassium 4.4 mmol/L (3.5-5.1)
--- NOTE | 2021-02-26 16:35 | Discharge Summary ---
Date of Service February 26, 2021 Admission HPI Per Admitting Provider 75-year-old female with PMH HLD, JERI on CPAP, CKD stage III, left subclavian artery stenosis, asymptomatic carotid stenosis, polycythemia, and other problems listed below who presents to the ED for evaluation of nausea and decreased urine output. Patient reports a history of renal failure in 2014 that presented very similarly. She reports that about 6 days ago, she developed nausea and dry heaves. She reports that whenever she would eat anything, she would have diarrhea almost immediately after. Denies bright red bleeding per rectum or dark tarry stools. Has had some intermittent mid abdominal pain. Has noted decreased urine output over the past few days as well. Denies change in color of urine, dysuria. Reports that she has been keeping up with fluid intake. No chest pain or shortness of breath. Denies lightheadedness, dizziness, diaphoresis, syncopal events. No fevers or chills. In the ED, creatinine is found to be 4.7 (baseline 1.0). Patient is hemodynamically stable. Patient was straight cathed for a very small amount of concentrated urine in the ED. CT ABD/pelvis unremarkable for acute findings. Admission Exam Per Admitting Provider Constitutional: WD/WN, vitals as above Eyes: PERRL, conjunctivae normal, anicteric sclerae ENMT: external ear and nose normal, oropharynx normal Respiratory: normal respiratory effort, lungs clear to auscultation Cardiovascular: Rate/Rhythm: regular rate and regular rhythm Vessels: normal peripheral pulses Extremities: no edema Gastrointestinal (Abdomen): normal bowel sounds, soft, nontender, no hepatosplenomegaly Musculoskeletal: no cyanosis or clubbing, extremities motor strength 5/5 Skin: no rashes, warm and dry Neurologic: PERRL, EOMI, accommodation nl, no face palsy, no dysarthria Psychiatric: A+Ox3, euthymic affect Principal Diagnosis AMIE Discharge Exam General: A&Ox3 HENT: NCAT, MMM, EOMI Eyes: PERRLA Neck: Supple, normal range of motion CVS: normal rate and rhythm Resp: b/l good breath sounds Abdomen: Soft, ND/NT, +BS Extremities: No c/c/e Neuro: face symmetric, strength grossly equal, no focal deficit Skin: warm and dry, no rashes/lesions/errythema MSK: normal ROM, no joint swelling/erythema Discharge Data Allergies Allergy/AdvReac Type Severity Reaction Status Date / Time ampicillin Allergy Mild RASH Verified 07/31/16 11:47 amlodipine Allergy Unknown TACHYCARDIA, Verified 07/31/16 11:47 NAUSEA amoxicillin Allergy Unknown ALLERGIC Verified 07/31/16 11:47 TO ALL PENICILLIN SUBSTITUTES chlorthalidone Allergy Unknown SEVERE Verified 07/31/16 11:47 HYPONATREMIA Thiazides Allergy Unknown SEVERE Verified 07/31/16 11:47 HYPONATREMIA Consultations 02/23/21 10:13 ED Decision to Admit Stat 02/23/21 16:58 Consult Nephrology Routine Ordered Studies 02/23/21 08:04 CT head/brain wo con Stat 02/23/21 09:04 CT abd pelvis wo con Stat 02/23/21 16:58 US liver Routine Hospital Course (1) Acute kidney injury superimposed on CKD: -Patient presenting from home with reports of nausea and decreased urine output x 6 days -In the ED, creatinine found to be 4.7 (baseline 1.0 on labs from 12/03/2020). History of similar presentation in 2014 in the setting of GI illness and lisinopril and chlorthalidone use. -GI illness causing a prerenal AMIE vs. patient has uremic symptoms from AMIE -No signs of obstruction on CT scan -Electrolytes and HCO3 acceptable, mild hyponatremia noted Na+ 131 -Patient was straight cathed for very small amount of concentrated urine in the ED. Villavicencio catheter was placed. Nephrology was consulted. Patient was resuscitated with IV fluids. Her renal function improved prior to discharge. On the day of discharge patient was doing okay. Medically she was doing fine. Patient was discharged in stable condition. (2) CKD (chronic kidney disease), stage III: (3) Abnormal urinalysis: Urinary tract infection. Transition to p.o. ciprofloxacin on discharge. (4) HTN (hypertension): -Hold lisinopril due to AMIE, continue metoprolol (5) Polycythemia: -History of, baseline Hgb 15-16 (6) Pulmonary nodule: -CT ABD/pelvis noted 7 mm noncalcified right lower lobe pulmonary nodule. Follow-up CT of the entire chest in 3 months is recommended. (7) Liver cyst: -CT ABD/pelvis noted Sharply defined low attenuation lesions throughout the liver most characteristic of liver cysts. Follow-up liver ultrasound could be obtained for further evaluation. -Liver ultrasound ordered (8) JERI on CPAP: -CPAP as per home settings Total Time Total Time Spent Total Time Spent (In Minutes): 35 Discharge Plan Discharge Items Patient Disposition: Home - Self-Care Reason For Visit: AMIE Discharge Diagnosis: AMIE Activity: Resume your previous activity Non-emergency contact: Primary Care Provider Call non-emergency contact if: your symptoms worsen Follow-up/Referrals: Kevin Ritter MD [Primary Care Provider] - (Date & Time 03/03/2021 11:20 AM Provider Kevin Ritter MD Department General Internal Medicine [facility] ) Diet: Heart Healthy Addtl Attending Provider Instructions: Take Ciprofloxacin 500 mg twice daily for three days. Lisinopirl was held at discharged due to normal blood pressure. Please consult [facility] primary care doctor brefore resuming it. Pending Studies at Discharge: No Stand-Alone Forms: My [place], Smoking Cessation Medications and DC Order Prescriptions: New ciprofloxacin HCl [Cipro] 500 mg tablet 500 mg PO BID Qty: 6 RF: 0 Continued atorvastatin 20 mg tablet 20 mg PO DAILY RF: 0 multivitamin Tablet 1 tab PO DAILY RF: 0 metoprolol succinate 50 mg tablet extended release 24 hr 50 mg PO DAILY RF: 0 aspirin 81 mg Tablet 81 mg PO DAILY RF: 0 cholecalciferol (vitamin D3) 10 mcg (400 unit) Tablet 10 mcg PO DAILY RF: 0 Discontinued lisinopril 30 mg tablet 30 mg PO DAILY RF: 0 Discharge Orders: Discharge Order (Routine); Ordered 02/25/21 Ordered By: Redd Soto Admission Data Admit Date/Time: 02/23/21 10:20 Attending Provider: Redd Soto Admit Provider: Azalia Marie Primary Care Provider: Kevin Ritter Other Providers: Alex Ware ; Azalia Marie Other Interventions: Discharge Summary Assessment (RN) Last Done: 02/25/21 12:49
== END 2021-02-25 13:59 | disposition home or self-care (01) | DRG 683 ==
LOC: ED 07:22 → 2N 10:20 → SUATTDRO 10:20 → 2N 15:03

== ENCOUNTER 2023-05-23 05:14 | Observation (INO) ==
--- NOTE | 2023-04-27 11:28 | PAT Medication Instructions ---
Medication Instructions Date of Service April 27, 2023 Home Medications aspirin 81 mg tablet 81 mg PO BID atorvastatin 20 mg tablet 20 mg PO PM cholecalciferol (vitamin D3) 10 mcg (400 unit) tablet 10 mcg PO PM metoprolol succinate 50 mg tablet,extended release 24 hr 62.5 mg PO PM multivitamin 1 tab PO PM clindamycin HCl 300 mg capsule 300 mg PO DIRECTED Continue as directed clindamycin HCl 300 mg capsule 300 mg PO DIRECTED ASK your prescriber and surgeon aspirin 81 mg tablet 81 mg PO BID Take evening before surgery atorvastatin 20 mg tablet 20 mg PO PM cholecalciferol (vitamin D3) 10 mcg (400 unit) tablet 10 mcg PO PM metoprolol succinate 50 mg tablet,extended release 24 hr 62.5 mg PO PM multivitamin 1 tab PO PM Other Notes NOTHING TO EAT OR DRINK AFTER MIDNIGHT. If you have any questions please call us at [phone] or [phone] or [phone] or [phone]
--- NOTE | 2023-05-04 14:27 | Anesthesiology Consultation ---
Date of Service May 04, 2023 Assessment & Plan (1) Encounter for pre-operative examination: Plan - upcoming S PCP pre-operative evaluation 05/10/23. PAT testing to be faxed to PCP. Chart Review Chart Review: Pending: Refer to Additional Notes / Consult section and Patient seen in Pre Admission Testing Teaching & Discussion Pre-Anesthesia Teaching/Discussion Notes: Instructed NPO after midnight before surgery, except medications with 15 cc of water. Medication instructions provided according to the PAT guidelines. History Surgery Operation Date: 05/23/23 07:00 Proposed Procedures p Left Total Knee Arthroplasty - Trip Veronica Soto MD Height/Weight Height: 5 ft 4 in Weight: 102.9 kg Allergies Allergy/AdvReac Type Severity Reaction Status Date / Time ampicillin Allergy Mild Rash Verified 05/02/23 14:06 amlodipine Allergy Unknown Tachycardia, Verified 05/02/23 14:06 nausea amoxicillin Allergy Unknown "Allergic Verified 05/02/23 14:06 to penicillin substitutes" chlorthalidone AdvReac Unknown Severe Verified 05/02/23 14:06 hyponatremia Thiazides AdvReac Unknown Severe Verified 05/02/23 14:06 hyponatremia Medications Home Medications Medication Instructions Recorded Confirmed Last Taken aspirin 81 mg tablet 81 mg PO BID 02/23/21 04/27/23 03/09/23 atorvastatin 20 mg tablet 20 mg PO PM 02/23/21 04/27/23 03/09/23 cholecalciferol (vitamin D3) 10 10 mcg PO PM 02/23/21 04/27/23 03/09/23 mcg (400 unit) tablet metoprolol succinate 50 mg 62.5 mg PO PM 02/23/21 04/27/23 03/09/23 tablet,extended release 24 hr multivitamin 1 tab PO PM 02/23/21 04/27/23 03/09/23 clindamycin HCl 300 mg capsule 300 mg PO DIRECTED 04/27/23 04/27/23 Unknown Past Medical History Medical History Asymptomatic carotid artery stenosis PCP monitoring Carotid duplex 12/2022: LICA <50% stenosis, SARAH 50-69% stenosis CKD (chronic kidney disease), stage III Fatty liver HTN (hypertension) controlled, stable per pt; white coat HTN Hyperlipidemia JERI on CPAP CPAP-compliant Polycythemia Prediabetes Pulmonary nodule Stenosis of left subclavian artery Rare reflux with certain foods. Patient denies h/o stroke, seizures, heart attack, heart failure, blood clots/DVTs or blood transfusions. Exercise / Class Metabolic Activity II 4-5 Yardwork/Stairs/Walk up hill (denies chest discomfort or shortness of breath with 1 FOS) Past Family History Family History Sister Throat cancer Daughter PONV (postoperative nausea and vomiting) Past Surgical History Surgical History H/O colonoscopy 2014- adenomatous polyp, diverticulosis H/O hernia repair History of lithotripsy History of right knee joint replacement S/P breast biopsy fibrocystic disease S/P ORIF (open reduction internal fixation) fracture Left Tibia Hardware Removal Deep 02/2023 [facility], LMA#4 Past Anesthesia History No Hx of Anesthesia Complications and Other (daughter with PONV) History of PONV No Hx of PONV and No Hx of Motion Sickness Social History Smoking Status: Former smoker Do You Dip or Chew Tobacco: No Smoking End Date: 25 yrs ago Hx Alcohol Use: Yes Alcohol type: wine alcohol intake frequency: a few times a week Hx Substance Use: No substance use type: does not use Review of Systems Patient denies chest pain, shortness of breath, dyspnea on exertion, fever, chills, cough, wheezing, or palpitations. Physical Exam Vital Signs Vitals BP 173/78 right arm automatic; repeat manual right arm after patient sitting and resting for several minutes 168/74 (Pt notes home BP readings are typically 130s/70s and are often elevated in clinical settings) P 72 TEMP 98.3 SP02 96% on RA RESP 18 Physical Patient resting comfortably in chair in no acute distress, alert and oriented, responding appropriately throughout visit Full cervical extension range of motion without pain TMD 3.5 finger breadths Mallampati Score 3 Dentition: several caps, one implant-left upper front, denies chipped or loose teeth, or bridges Lungs: normal respiratory effort. Good air movement, clear throughout to auscultation, no adventitious breath sounds Cardiac: regular rate and rhythm, no murmurs noted Carotid arteries: negative bruit bilat Lab Results Anesthesia Preop Results Results Anesthesia Widget: WBC 8.99 K/ul (4.8-10.8) 05/04/23 Hgb 14.3 g/dl (12.0-16.0) 05/04/23 Hct 44.2 % (37.0-47.0) 05/04/23 Plt 246 K/uL (130-400) 05/04/23 Na 141 mmol/L (136-145) 05/04/23 K 4.2 mmol/L (3.5-5.1) 05/04/23 Cl 106 mmol/L (98-107) 05/04/23 CO2 27 mmol/L (21-32) 05/04/23 BUN 30 mg/dl (6-23) H 05/04/23 Creat 0.81 mg/dl (0.6-1.2) 05/04/23 Glucose Level 90 mg/dl (70-99(Fasting)) 05/04/23 PT 10.7 Seconds (9.0-12.0) 05/04/23 PTT 29 Seconds (21-31) 05/04/23 INR 1.0 (0.9-1.1) 05/04/23 Urine Color Yellow 05/04/23 Urine Appearance Clear (Clear) 05/04/23 Urine pH 5.5 (4.5-7.5) 05/04/23 Urine Specific [place] 1.033 (1.000-1.030) H 05/04/23 Urine Protein 1+ (Negative) H 05/04/23 Urine Glucose (UA) Negative (Negative) 05/04/23 Urine Ketones Trace (Negative) H 05/04/23 Urine Blood Negative (Negative) 05/04/23 Urine Nitrite Negative (Negative) 05/04/23 Urine Bilirubin Negative (Negative) 05/04/23 Urine Urobilinogen Negative (Negative) 05/04/23 Urine Leukocyte Esterase Negative (Negative) 05/04/23 Urine WBC (Auto) 1-5 /hpf (0-5) 05/04/23 Urine RBC (Auto) 0-4 /hpf (0-4) 05/04/23 Urine Hyaline Casts (Auto) 1-5 /lpf (0-5) 05/04/23 Urine Epithelial Cells (Auto) 20-30 /lpf (0-5) H 05/04/23 Urine Bacteria (Auto) Negative (Negative) 05/04/23 Blood Type A Positive 05/04/23 Antibody Screen NEGATIVE 05/04/23 Testing Electrocardiogram Date: 02/24/23 NSR, rate 80 bpm Possible LA enlargement RSR Other Testing Carotid doppler 01/09/23 50-69% stenosis right ICA, degree of stenosis may be greater than reported due to heavily calcified plaque < 50% stenosis left ICA Abdomen pelvis CT 01/02/23 1. No ureteral stone. No secondary signs of recent stone passage. 2. Grade II developmental anterior spondylolisthesis of L5 on S1. 3. Please refer to separately dictated chest CT report for description of findings in the chest. Chest CT 01/02/23 1. No acute findings in the chest. 2. Moderate to marked coronary artery calcifications. 3. Mild centrilobular emphysema. 4. Stable pulmonary nodule(s) measuring between 6 to 8 mm in size. For patients at low risk (minimal or absent history of smoking and of other known risk factors), consider CT Chest in 12 months. For patients at high risk (history of smoking or of other known risk factors), recommend CT Chest in 12 months. (Reference: Lisa) 5. Please refer to separately dictated abdomen pelvis CT report for description of findings in this region.
--- OUTSIDE RECORDS SUMMARY | 2023-05-23 05:38 | External Medical Summary | Summary of Care ---
Author Name Unknown Organization [facility] Address [address] [facility] [address] Phone [phone] Care Team Providers Care Plaque Maker Name Role Phone Kevin Ritter MD Primary Care Provider + Encounter Details Date Type Department Care Team (Late st Contact Info) Description 05/08/2023 Orders Only General Internal Medicine [facility] [place] [address] [facility] [place] [address] Kevin Ritter MD [address] [facility] [address] [facility] [id number] Allergies Active Allergy Reactions Criticality Noted Date Comments Amlodipine Tachycardia 04/03/2015 Tachycardia, nausea Amoxicillin Hives Medium 03/19/2012 Chlorthalidone 11/14/2014 Severe hyponatremia in the setting of volume depletion Thiazide-Type Diuretics 11/14/2014 Severe hyponatremia in the setting of volume depletion Other reaction(s): SEVERE HYPONATREMIA documented as of this encounter (statuses as of 05/08/2023) Medications Medication Sig Dispensed Refills Start Date End Date Status Vitamin D, Cholecalciferol, 400 units CAPSIndications:in evening Take by mouth. 0 Active Multivitamin Adult Extra C Oral Tablet Chewable 1 Tablet. 0 02/23/2021 Active Acetaminophen 500 MG Oral Tablet (Tylenol) Take 4 Tablets by mouth in the morning. 0 Active CPAP every night at bedtime. 0 Active Metoprolol Succinate ER 50 MG Oral Tablet Extended Release 24 Hour (toPROL XL)Indications:Benign hypertension with CKD (chronic kidney disease) stage III (HCC) TAKE 1 TABLET BY MOUTH EVERY DAY 90 Tablet 3 09/28/2022 Active Atorvastatin Calcium 20 MG Oral Tablet (Lipitor)Indications: Mixed hyperlipidemia TAKE 1 TABLET BY MOUTH EVERY DAY IN THE MORNING 90 Tablet 2 02/14/2023 Active Clindamycin HCl 300 MG Oral Capsule Take 1 Capsule by mouth. As needed before dental appointment 0 03/07/2023 Active oxyCODONE HCl 5 MG Oral Tablet Abuse-Deterrent Take 5 mg by mouth every 4 hours as needed for Pain, Mild, Pain, Moderate or Pain, Severe. Pt has 3 tablets to take post op as needed 0 Active Metoprolol Succinate ER 25 MG Oral Tablet Extended Release 24 Hour (toPROL XL)Indications:HTN, goal below 140/90 Take 0.5 Tablets by mouth every evening. Start 03/08/2023 45 Tablet 3 03/23/2023 Active documented as of this encounter (statuses as of 05/08/2023) Active Problems Problem Noted Date Diagnosed Date Isolated proteinuria without specific morphologi c lesion 08/10/2022 S/P TKR (total knee replacement), right 03/14/20 22 Lung nodule 06/14/2021 Asymptomatic stenosis of right carotid artery Stenosis of left subclavian artery 10/30/2020 JERI (obstructive sleep apnea) 11/22/2018 Polycythemia 07/31/2018 Prediabetes 07/04/2017 Overview: Per Prediabetes protocol #1 H/O fracture of tibia 12/12/2016 Overview: 2012, has angus Fatty liver 08/09/2016 Hyperlipidemia 05/15/2014 HTN, goal below 140/90 03/19/2012 documented as of this encounter (statuses as of 05/08/2023) Resolved Problems Problem Noted Date Diagnosed Date Resolved Date Centrilobular emphysema 03/07/2022 05/0 07/2022 Liver cyst 06/14/2021 03/23/2023 Overview: multiple Body mass index (BMI) of 40. 0 to 44.9 in adult 12/31/2018 08/25/2022 Overview: Per Obesity protocol Elevated hemoglobin 11/22/2018 08/26/19 23 Morbid obesity 07/31/2018 01/04/2019 Overview: Per Obesity protocol Benign hypertension with CKD (chronic kidney disease) stage III 06/14/2017 08/25/2022 Chlorthalidone adverse reaction 11/05/2014 12/12/2016 Overview: Hyponatremia on med in setting of carolynn Kidney disease, chronic, sta ge III (GFR 30-59 ml/min) 07/07/2014 08/21/2015 Overview: Per CKD protocol #1 HTN, goal below 150/90 11/07/201304/03 HTN, goal below 140/90 03/19/201211/07 Tibia fracture 03/19/2012 12/12/2016 Overview: 2011, has angus documented as of this encounter (statuses as of 05/08/2023) Immunizations Name Administration Dates Next Due COVID-19 mRNA, LNP-s, No Pre serve, 2-Dose Series (Moderna) 08/08/2021,12/10/2020,06/17/2020,05/15 COVID-19, MRNA-LNP, 23-24, P F, 30 MCG/0.3 mL, 12 YRS AND ABOVE, IM (PFIZER-Comirnaty) 01/16/2023 Covid-19, Mrna, Lnp-s, Pf, B ivalent, 50 Mcg, IM, 12 yrs and above (Moderna) 12/31/2021 Pneumococcal Conjugate Vacc, 13 Valent (Prevnar) 05/15/2014 Pneumococcal Conjugate Vacci ne, 7 Valent 03/14/2012 Pneumococcal Polysaccharide PPV23 (Pneumovax) 03/14/2012 Season Influenza, Quad, PF, Adjuvanted, 65+ Yrs, IM (FLUAD) 12/22/2019 Seasonal Influenza Virus Vac cine, Unspecified Formulation 12/22/2017,12/26/2016,01/31/2016,01/16,01/24/2014,02/11/2013,03/14/2012 Seasonal Influenza, Quadriva lent Hd (Fluzone Hd) 01/16/2023 Seasonal Influenza, Quadriva lent Hd, 65+ Yrs 12/20/2020 Seasonal Influenza, Quadriva lent, No Preserve, IM 12/26/2016 Seasonal Influenza, Split, I IV3, With Preserve, Inj 01/16/2015,01/24/2014,02/11/2013,03/14 Seasonal Influenza, Trivalen t, Adjuvanted, 65+ yrs 01/01/2019,12/22/2017 Seasonal Influenza, Trivalen t, High Dose, No Preserve, IM 01/27/2022,01/31/2016 TDAP (age 10 and older)(Boostrix) 11/07/2013 Varicella Zoster Vaccine (Adult) 06/15/2012 Zoster Vaccine Recombinant (Shingrix) 01/31/2019 ,11/29/2018 documented as of this encounter Social History Tobacco Use Types Packs/Day Years Used Date Smoking Tobacco: Former Cigarettes 1 40 Q uit: 04/24/1998 Smokeless Tobacco: Never Alcohol Use Standard Drinks/Week Comments Yes 2 (1 standard drink = 0.6 oz pur e alcohol) social PHQ-2 Answer Date Recorded PHQ Adult Total Score 0 08/25/2022 Hunger Vital Sign Answer Date Recorded Within the past 12 months, y ou worried that your food would run out before you got the money to buy more. Never true 08/26/19 23 Within the past 12 months, t he food you bought just didn't last and you didn't have money to get more. Never true 08/25/2022 Sex and Gender Information Value Date Recorded Sex Assigned at Female 11/22/2018 8:37 AM EDT Gender Identity Female 11/22/2018 8:37 AM EDT Sexual Orientation Straight 03/06/2023 10 :56 AM EST Sexual Orientation Choose not to disclose 2022 10:56 AM EST Job Start Date Occupation Industry Not on file Not on file Not on file documented as of this encounter Functional Status Functional Status Response Date of Assess ment Are you deaf or do you have serious difficulty h earing? No 03/14/2022 Are you blind or do you have serious difficulty seeing, even when wearing glasses? No 03/14/2022 Do you have serious difficul ty walking or climbing stairs? (5 years old or older) Yes 03/15/2022 Do you have difficulty dress ing or bathing? (5 years old or older) No 03/14/2022 Because of a physical, menta l, or emotional condition, do you have difficulty doing errands alone such as visiting a doctor s office or shopping? (15 years old or older) No 03/14/20 Cognitive Status Response Date of Assessm ent Because of a physical, menta l, or emotional condition, do you have serious difficulty concentrating, remembering, or making decisions? (5 years old or older) No 03/14/2022 documented as of this encounter Plan of Treatment Upcoming Encounters Date Type Department Care Team (Late st Contact Info) Description 05/10/2023 12:00 PM EST Office Visit General Internal Medicine [facility] [address] [place] [address] [address] Kevin Ritter MD [address] [place] [address] 06/23/2023 2:15 PM EST Telemedicine Urology Subha Salazar [address] [place] [address] [place] [address] Eber Renteria MD [address] [place] [address] [place] [address] 7, Telemed [facility] Urology Ex Rm [address] [place] [address] 09/28/2023 10:20 AM EDT Office Visit General Internal Medicine [facility] [facility] [address] [place] [address] Kevin Ritter MD [address] [place] [address] Scheduled Procedures Name Priority Associated Diagnoses Date/Ti me ROBOTIC ARTHROPLASTY KNEE TOTAL Knee osteoarthritis Retained orthopedic hardware REMOVAL OF IMPLANT DEEP Knee osteoarthritis Retained orthopedic hardware COLONOSCOPY FLEXIBLE PROXIMA L DIAGNOSTIC Recall History of colon polyps Health Maintenance Due Date Last Done Comments COLONOSCOPY-EVERY 5 YRS AGES 18-100 07/05/2023 07/04/2018, 07/04/2018, 03/26/2015, Additional history exists Depression Screening 08/26/2023 08/25/2022, 02/20/20 15 DTaP,Tdap,and Td Vaccines (2 - Td or Tdap) 11/08/2023 11/07/2013 GFR 03/08/2024 05/04/2023, 02/22, 08/10/2022, Additional history exists HbA1c 03/08/2024 03/08/2023, 01/23, 12/03/2020, Additional history exists Albumin/Creatinine Ratio 03/08/2026 023, 08/10/2022, 06/03/2021, Additional history exists DXA Scan 01/05/2027 01/06/2020, 08/2012, 05/29/2012 Pneumococcal Vaccine: 65+ Years Completed 05/15/2014, 03/14/2012 Zoster Vaccines Completed 01/31/2019, 11/2018, 06/15/2012 COVID-19 Vaccine Completed 01/16/2023, 12/2021, 08/08/2021, Additional history exists Influenza Vaccine (FLU shot) Completed , 01/27/2022, 01/27/2022, Additional history exists GARDASIL-HPV IMMUNIZATION SERIES Aged Out No longer eligible based on patient's age to complete this topic Hepatitis B Aged Out No longer eligi ble based on patient's age to complete this topic MENINGOCOCCAL (MENACTRA/MENVEO) Aged Out No longer eligible based on patient's age to complete this topic documented as of this encounter Medical Devices Implanted Type Area Exterminator Device Identifier Shelf Expiration Date Model / Serial / Lot Knee X3 Ins Pos Cs Sz4 9 - [id number] Implanted:Qty: 1 on 03/14/2022 by Tavon Rivera, DO at OR [facility] Right: Knee DEBI : ORTHOPAEDICS 04/13/2026 [id number] / / [id number] documented as of this encounter Procedures Procedure Name Priority Date/Time Associated Diagnosis Comments CHEMISTRY-OUTSIDE Routine 05/04/2023 documented in this encounter Results * CHEMISTRY-OUTSIDE (05/04/2023) Not all results display below - see scan for full detail OUTSIDE LAB (SEE SCANNED REPORT) Comment:SCAN INCL: PREADM: B MP,CBCD,UA, PT, INR, PTT, PTTR CREATININE-OUTSID E LAB 0.81 0.6 - 1.2 MG/DL OUTSIDE LAB (SEE SCANNED REPORT) EGFR-OUTSIDE LAB 70.5 OUT SIDE LAB (SEE SCANNED REPORT) POTASSIUM-OUTSIDE LAB 4.2 3.5 - 5.1 MMOL/L OUTSIDE LAB (SEE SCANNED REPORT) GLUCOSE-OUTSIDE LAB 90 70 - 99 MG/DL OUTSIDE LAB (SEE SCANNED REPORT) HOURS FASTING OUTSID E LAB (SEE SCANNED REPORT) TRIGLYCERIDES-OUT SIDE LAB OUTSIDE LAB (SEE SCANNED REPORT) CHOLESTEROL-OUTSI DE LAB OUTSIDE LAB (SEE SCANNED REPORT) HDL-OUTSIDE LAB OUTS [facility] (SEE SCANNED REPORT) CHOL/HDL RATIO-OUTSIDE LAB OUTSIDE LA B (SEE SCANNED REPORT) LDL (CALCULATED)-OUTS [facility] OUTSIDE LAB (SEE SCANNED REPORT) LDL (DIRECT MEASURE)-OUTSIDE LAB OUTSIDE LAB (SEE SCANNED REPORT) HEMOGLOBIN, [id number] LAB OUTSIDE LAB (SEE SCANNED REPORT) PHOSPHORUS-OUTSID E LAB OUTSIDE LAB (SEE SCANNED REPORT) PTH-OUTSIDE LAB OUTS [facility] (SEE SCANNED REPORT) MICROALBUMIN RATIO-OUTSIDE LAB OUTSIDE LA B (SEE SCANNED REPORT) PROTEIN, UA-OUTSIDE LAB OUTSIDE LAB (SEE SCANNED REPORT) HEMOGLOBIN-OUTSID E LAB 14.3 12.0 - 16.0 G/DL OUTSIDE LAB (SEE SCANNED REPORT) 05/04/2023 History Per Patient LABORATORY OUTSIDE LAB (SEE SCANNED REPORT) documented in this encounter Advance Directives Documents on File Type Date Recorded Patient College Physics Instructor Expl anation Power of Oem Sales Manager 11/25/2005 POWER OF A TTORNEY DURABLE POWER OF LINER MACHINE OPERATOR HELPER Latest Code Status on File Code Status Date Activated Date Inactivated Comments Full Code 03/14/2022 9:49 AM 03/15/2022 4:38 PM Thi s order reflects the patients wishes and were consensually agreed upon. Question Answer Comments Discussion of Advance Directives occurred with: Patient Code Status History Code Status Date Activated Date Inactivated Comments Full Code 06/21/2021 12:26 PM 06/21/2021 5:44 PM This order reflects the patients wishes and were consensually agreed upon. Full Code 06/21/2021 10:31 AM 06/21/2021 12:26 PM Thi s order reflects the patients wishes and were consensually agreed upon. Care Teams Plaque Maker Relationship Specialty Start Date End Date Kevin Ritter MD [address] [place] [address] PCP - General Internal Medicine 03/19/12 documented as of this encounter
--- OUTSIDE RECORDS SUMMARY | 2023-05-23 05:38 | External Medical Summary | Continuity of Care Document ---
Author Name Unknown Organization [id number] Address [address] [place] [id number] Care Team Providers Care Trimmer Sorter Name Role Phone Kevin Ritter Primary Care Physician [phone] [id number] Date(s): 05/04/23 - 05/04/23 [facility] [address] [id number] [facility] Medicine [address] [place] [id number] Encounter Diagnosis Left knee DJD(Discharge Diagnosis) - 05/04/23 Discharge Disposition: Home or Self Care Attending Physician: PIERO Mcdonald, Jane Referring Physician: MD Brittany, Trip A Allergies, Adverse Reactions, Alerts Substance Reaction Severity Status ampicillin Active thiazide-like diuretics 1 Unknown Ac tive Pollen Active 1Outside Source Comment: Severe hyponatremia in the setting of volume depletion | Other reaction(s):SEVERE HYPONATREMIA Medications acetaminophen 500 mg oral tablet Start: 01/19/23 9:36:00 EDT, 2,000 mg =, PO, 1 Refill(s), Take 4 Tablets by mouth in the morning. Start Date: 01/19/23 Status: Ordered Aspirin Low Dose 81 mg oral tablet Start: 01/19/23 9:36:00 EDT, 1 Refill(s), TAKE ONE TABLET BY MOUTH EVERY MORNING & TAKE ONE TABLET BY MOUTH EVERY DAY BEFORE BEDTIME Start Date: 01/19/23 Status: Ordered atorvastatin 20 mg oral tablet Start: 01/19/23 9:36:00 EDT, 90 each, TAKE 1 TABLET BY MOUTH EVERY DAY IN THE MORNING Start Date: 01/19/23 Status: Ordered cholecalciferol 10 mcg (400 intl units) oral capsule Start: 01/19/23 9:37:00 EDT, PO, 1 Refill(s), Take by mouth. Start Date: 01/19/23 Status: Ordered metoprolol succinate 50 mg oral tablet, extended release Start: 01/19/23 9:36:00 EDT, 4 Refill(s), TAKE 1 TABLET BY MOUTH EVERY DAY 62.5 mg Start Date: 01/19/23 Status: Ordered multivitamin Start: 01/19/23 9:37:00 EDT, 1 Unknown, 1 Refill(s), 1 Tablet. Start Date: 01/19/23 Status: Ordered oxyCODONE 5 mg oral tablet Start: 02/23/23 16:04:00 EDT, 1 tab, PO, q4h, Disp# 18 tab, Refills: 0, Note to Pharmacy: initial therapy, PRN: as needed for pain, Pharmacy: [id number] Start Date: 02/23/23 Status: Ordered Mental Status 05/04/23 Barriers to Learning one year None evide nt Mandatory Health Literacy Documentation Yes Health Literacy Communication Barriers N ever Primary Language German Problem List Condition Confirmation Course Effective Dates Status Health St atus Informant Unilateral post-traumatic osteoarthritis, left knee Confirmed Active S/P hardware removal Confirmed Active HYPERTENSION Confirmed Active Kidney disease Confirmed Active Left knee pain Confirmed Active Knee pain Confirmed Active Diagnosis Diagnosis Type Effective Dates Health Status Cl inical Service Informant Left knee DJD Discharge Diagnosis 05/04/23 Procedures Procedure Date Related Diagnosis Body Site Status History of orthopedic surgery 2022 Completed Open reduction and internal fixation of fracture 2 03/12/12 Completed Excision of cyst of breast 3 Completed Hernia repair 4 Completed Procedure on neck 5 Compl eted 1left tibia hardware removal 2L distal tibia 3fibroid, R breast 4R inguinal 5Nodule removed Vital Signs Most recent to oldest [Reference Range]: 1 Height 162 cm (05/04/23 1:26 PM) Patient Weight 103 kg (05/04/23 1:26 PM) Body Mass Index 39.25 kg/m2 (05/04/23 1:26 PM) Temperature [36.5-37.9 DegC] 36.6 DegC (05/04/23 1:26 PM) Heart Rate 88 bpm (05/04/23 1:26 PM) Respiratory Rate 18 br/min (05/04/23 1:26 PM) Blood Pressure 160/90mmHg (05/04/23 1:26 PM) Cuff Pulse Pressure 70 mmHg (05/04/23 1:26 PM) Social History Social History Type Response Smoking Status Never smoked cigaret evelin Sex Female 1nicotine gum 3x/day History and physical note * PIERO Mcdonald, Jane: PERFORM Event Display: .HP Authored Date: [id number] Primary Care Provider MD Ritter Timothy F Referring Provider MD Brittany, Trip A Chief Complaint pre op History of Present Illness Kalin is a 77-year-old female here today for preop for left total knee arthroplasty with Dr. Soto. She previously had a right knee done. She recently had aleft tibial angus removal in Februaryfor anticipation of the surgery. She is doing well with that. Everything is healed. She stillhas somepain she reports in her knee from the arthritis. She is eager to get her surgery done. She denies any changes in her medical history or any recent sicknesses or illnesses. She will beseeing her PCP for preoperative clearance. She has an appointment with PAT today. She says thatherdaughter lives in [place] and her son does notliving near here either and she is a andwas inquiring about rehab. Review of Systems DeniesRecent illnesses, colds/flu, pneumonia, COVID or COVID exposures; DeniesFevers, chills, malaise; DeniesChest pain, heart palpitations; DeniesShortness of breath, cough; DeniesHeadacheor blurry vision; DeniesAbdominal pain, nausea, vomiting, diarrhea, or urinary symptoms Physical Exam Vitals & Measurements T:36.6C HR:88(Monitored) RR:18 BP:160/90 SpO2:98% HT:162cm WT:103kg WT:103.000kg(Dosing) BMI:39.25 General: Pt is well nourished, seated on the exam table AA&O, in NAD, calm and cooperative during exam HENT: Nontraumatic, no gross deformity, hearing and vision grossly in-tact, PERRL Heart: +S1, +S2, RRR, no murmurs appreciated Lungs: CTABL, no wheezing appreciated Focusing on the patient'sleft lower extremity: 2+ DP pulse Sensation to light touch is intact Motor to the gastroc soleus, tibialis anterior, and EHL is 5/5. Incisions well healed Able to perform straight leg raise. Ambulating with a normal gait Ligamentous examination exhibits: [id number] anterior translation andfirm endpoint Posterior drawerstable Varus stress at 0 and 30stable Valgus stress at 0 stable, pseudo-laxity with Valgus stress at 30 NoEffusion Range of motion 0 to 95 [1] Diagnostic Results Dr. Crowder obtained and personally interpreted left tib/fib films (AP and Lateral) which show evidence that her hardware was removed, screw holes still evident, andno fracture or dislocation. Thereis bone on bone medial compartment. Dr. Soto reviewed x-rays taken 01/19/23, [facility] includes bilateralAP standing,45 degree flexion PA view, hips to ankles, left kneelateral andnotch views which show evidence of prior IM rodding of the left tibia with hardware in placeand fracturecompletelyhealed. There is evidence of right TKA components. Bone-one bone medial compartment arthritis of the left knee with sclerosis, marginal osteophytes and subchondral cysts. There is also moderatedegenerative changes in the patellofemoral compartment. 14 Varus alignmenton the left. [2] Assessment/Plan 1.Left knee DJD Preop The risks and benefits of surgery as well as the post operative course was explained and discussed with the patient. Written consent obtained. The patient's past medical history, surgeries, social history, medication list, allergies and PDMP were reviewed and confirmed with the patient. Kelsie needmedical clearance. EKG104/24/2022 with no concerning findings. She had a CBC and a BMP done 02/25within normal limits do not need to repeat.. Preoperative orders were placed. We discussed postoperative pain medications includingoxycodone, tylenol,as well as icing and elevating to control pain. DVT prophylaxis -ASA 81mg BID x 6 weeks and MARY ALICE stockings x 2 weeks. Additional medications -stool softener as needed to prevent constipation while on narcotics, multi-vitamin OR Vitamin C 500mg BID x 2 weeks, Iron 324mg BID x 2 weeks to promote healing. The patient has been scheduledfor post operative appointments, including any PT or HH services, per surgeon's preference. We discussed if she were to need rehab that would be taken care of at the hospital once we see what her deficits and needs may be. Will proceed with setting up the home health for 2 weeksand see how the patient does after surgery. She says that she didvery well after her right knee replacement and did not need any rehab. She already has a walker. Scripts are placed for the home health services and physical therapy. The patient was given a preoperative booklet and we reviewed the most pertinent things leading up to the surgery and the day of surgery; including any assisted devices pt may need, when/who to call for the surgery time, where to arrive the day of surgery, NPO after midnight, medications to hold, prepping the skin with CHG to prevent infection etc. All of their questions and concerns were answered today. They were instructed to call our office if they have any further questions or concerns. Problem List/Past Medical History Ongoing HYPERTENSION Kidney disease Knee pain Left knee pain S/P hardware removal Unilateral post-traumatic osteoarthritis, left knee Procedure/Surgical History History of orthopedic surgery (2022)Open reduction and internal fixation of fracture (03/12/2012)Procedure on neckExcision of cyst of breastHernia repair Medications acetaminophen(acetaminophen 500 mg oral tablet), 2000 mg, PO aspirin(Aspirin Low Dose 81 mg oral tablet) atorvastatin(atorvastatin 20 mg oral tablet) cholecalciferol(cholecalciferol 10 mcg (400 intl units) oral capsule), PO metoprolol(metoprolol succinate 50 mg oral tablet, extended release) multivitamin oxyCODONE(oxyCODONE 5 mg oral tablet), 5 mg= 1 tab, PO, q4h, PRN Allergies Pollen ampicillin thiazide-like diureticsUnknown Social History Smoking Status Never smoked cigarettes Alcohol Use:Current Type:Wine Frequency:Daily Average drinks per episode in last year:2 Employment/School Status:Retired Substance Abuse - Denies Substance Abuse Tobacco Use:Smoker, current status unknown - Comments: nicotine gum 3x/day Family History Bleeding disorder: Unknown. Cancer: Unknown. Health Status Family Member(s) Recommendations Health Maintenance Pending(in the next year) OverDue Adult Influenza Vaccine due10/21/22and every 1year Due Adult COVID-19 Vaccination due05/04/23Unknown Frequency Adult Social Determinants of Health Screening due05/04/23Unknown Frequency Adult Tdap/Td Vaccine due05/04/23Unknown Frequency Hepatitis C Screening due05/04/23One-time only Lipid Screening due05/04/23Unknown Frequency Medicare Annual Wellness Visit due05/04/23and every 1year Osteoporosis Screening due05/04/23One-time only Pneumococcal Vaccine Older Adults due05/04/23One-time only Shingles Vaccine due05/04/23One-time only Satisfied(in the past 1 year) Satisfied Body Mass Index on05/04/23.Satisfied by MELVIN Renteria Kelley [1]Trip Soto; Ari Baptiste 04/20/2023 10:15 EST [2]Trip Soto; Ari Baptiste 04/20/2023 10:15 EST Electronic Signature on File Electronically Reviewed/Signed by: Jane Mcdonald PA-C Author Signature Dt/Tm:05/04/2023 03:00 PM Physician Transfer Station Attendant, Dept. of Orthopaedics and Sports Medicine [facility] - [address], [address] [place] [address] Electronically Reviewed/Signed by: Trip Soto MD Cosigner Signature Dt/Tm: 05/04/2023 03:55 PM [facility] Aircraft Cleaner Department of Orthopaedics and Rehabilitation [facility] [address], [place] [address] MK Patient Care team information Care Team Personnel Name: MD Ritter Timothy F Position: Referring DIRECT Member Role: Primary Care Provider Address: Address: [address] [place] [id number] [place] Care Team Related Persons Name: JOHN MEJIA Address: home No Address Provided"
--- OUTSIDE RECORDS SUMMARY | 2023-05-23 05:38 | External Medical Summary | Summary of Care ---
Author Name Unknown Organization [facility] Address [address] [facility] [address] Phone [phone] Care Team Providers Care Gaming Associate Name Role Phone Kevin Ritter MD Primary Care Provider + Reason for Visit * Reason Comments Physical-Exam The pt stated she is here for a pre-op physical for a L knee replacement Encounter Details Date Type Department Care Team (Late st Contact Info) Description 05/10/2023 3:00 PM EST Office Visit General Internal Medicine [facility] [place] [address] [place] [address] Nurys Mayfield MD [address] [facility] [address] Preoperative general physical examination*; Chronic pain of left knee; H/O fracture of tibia; S/P TKR (total knee replacement), right; HTN, goal below 140/90; JERI on CPAP; Stenosis of left subclavian artery (HCC); Mixed hyperlipidemia; Prediabetes; Dehydration; Anxiety state Allergies Active Allergy Reactions Criticality Noted Date Comments Amlodipine Tachycardia 04/03/2015 Tachycardia, nausea Amoxicillin Hives Medium 03/19/2012 Chlorthalidone 11/14/2014 Severe hyponatremia in the setting of volume depletion Thiazide-Type Diuretics 11/14/2014 Severe hyponatremia in the setting of volume depletion Other reaction(s): SEVERE HYPONATREMIA documented as of this encounter (statuses as of 05/12/2023) Medications Medication Sig Dispensed Refills Start Date End Date Status Vitamin D, Cholecalciferol, 400 units CAPSIndications:in evening Take by mouth. 0 Active Multivitamin Adult Extra C Oral Tablet Chewable 1 Tablet. 0 1 Active Acetaminophen 500 MG Oral Tablet (Tylenol) Take 4 Tablets by mouth in the morning. 0 Active CPAP every night at bedtime. 0 Active Metoprolol Succinate ER 50 MG Oral Tablet Extended Release 24 Hour (toPROL XL)Indications:Rc gn hypertension with CKD (chronic kidney disease) stage III (HCC) TAKE 1 TABLET BY MOUTH EVERY DAY 90 Tablet 3 3 Active Atorvastatin Calcium 20 MG Oral Tablet (Lipitor)Indication s:Mixed hyperlipidemia TAKE 1 TABLET BY MOUTH EVERY DAY IN THE MORNING 90 Tablet 2 3 Active Clindamycin HCl 300 MG Oral Capsule Take 1 Capsule by mouth. As needed before dental appointment 0 3 Active Metoprolol Succinate ER 25 MG Oral Tablet Extended Release 24 Hour (toPROL XL)Indications:HTN, goal below 140/90 Take 0.5 Tablets by mouth every evening. Start 03/08/2023 45 Tablet 3 3 Active Additional Information Patient taking differently:12.5 mg OralDaily(AM), Start 03/08/2023, Reported on 05/10/2023 Aspirin 81 MG Oral Capsule Take 81 mg by mouth at bedtime. 0 3 Active oxyCODONE HCl 5 MG Oral Tablet Abuse-Deterrent Take 5 mg by mouth every 4 hours as needed for Pain, Mild, Pain, Moderate or Pain, Severe. Pt has 3 tablets to take post op as needed 0 05/10/19 24 Discontinued documented as of this encounter (statuses as of 05/12/2023) Active Problems Problem Noted Date Diagnosed Date Isolated proteinuria without specific morphologi c lesion 08/10/2022 S/P TKR (total knee replacement), right 03/14/20 22 Lung nodule 06/14/2021 Asymptomatic stenosis of right carotid artery Stenosis of left subclavian artery 10/30/2020 JERI (obstructive sleep apnea) 11/22/2018 Polycythemia 07/31/2018 Prediabetes 07/04/2017 Overview: Per Prediabetes protocol #1 H/O fracture of tibia 12/12/2016 Overview: 2011, has angus Fatty liver 08/09/2016 Hyperlipidemia 05/15/2014 HTN, goal below 140/90 03/19/2012 documented as of this encounter (statuses as of 05/12/2023) Resolved Problems Problem Noted Date Diagnosed Date [...] as of this encounter (statuses as of 05/12/2023) Immunizations Name Administration Dates Next Due COVID-19 [...] money to buy more. Never true 08/26/19 Within the past 12 months, t he [...] on file documented as of this encounter Last Filed Vital Signs Vital Sign Reading Time Taken Comments Blood Pressure 160/80 05/10/2023 4:01 PM EST Pulse 91 05/10/2023 3:00 PM EST Temperature 36.7 C (98.1 F) 05/10/2023 3:00 PM ES T Respiratory Rate - - Oxygen Saturation 96% 05/10/2023 3:00 PM EST Inhaled Oxygen Concentration - - Weight 103.8 kg (228 lb 14.4 oz) 05/10/2023 3:00 PM EST Height 160.7 cm (5' 3.25") 05/10/2023 3:00 PM ES T Body Mass Index 40.23 05/10/2023 3:00 PM EST documented in this encounter Functional Status Functional Status Response [...] No 03/14/2022 documented as of this encounter Progress Notes * Kenny Yuen LPN - 05/12/2023 2:59 PM EST Pt's BP readings for today (05/12/2023) are as follows After activity 154/80 P 69 At rest 138/81 P 62 Pt takes BP meds at 7pm not in the AM. The Chart reflects this. * Nurys Mayfield MD - 05/10/2023 3:18 PM EST SUBJECTIVE: Becca Burton is a 77 year old female. Chief Complaint Patient presents with Physical-Exam The pt stated she is here for a pre-op physical for a L knee replacement HPI: Patient presents Is being seen for preoperative evaluation at the request of Procedure and Date of surgery: Left TKR 05/23/23 Wt Readings from Last 5 Encounters: 05/10/23 103.8 kg (228 lb 14.4 oz) 03/23/23 99 kg (218 lb 3.2 oz) 03/08/23 100.7 kg (222 lb 1.6 oz) 01/18/23 99.2 kg (218 lb 12.8 oz) 08/25/22 97.6 kg (215 lb 1.6 oz) BP Readings from Last 5 Encounters: 05/10/23 158/88 03/23/23 126/70 03/08/23 148/80 01/18/23 154/78 08/25/22 156/82 Patient with a history of hypertension, dyslipidemia, fatty liver, prediabetes, JERI, stenosis left subclavian artery, history of right knee replacement 02/2022, isolated proteinuria History of fracture of the left tibia with status post angus removal in February 2023 Labs --08/10/22--nml cbc, CMp ex bun , nml phos, lab cr 102 03/07/22-EKG>preop--NSR, RAD, inc RBBB, unchg 06/07/21 03/08/23-EKG_NSR at 80 bpm, LAE -labs-normal CMP, CBC except borderline high hemoglobin likely related to dehydration as urine alsoconcentrated,lipids, A1c ok, inc intake fluids. 05/04/23=nml cbc, coags, BMP ex BUN 30, ua SG 1.033, 20-30 ep cells. Admits compliance with CPAP use Blood pressures in the office always elevated, home blood pressure she states running 138/78. -allergy to amlodipine, thiazides, did not tolerate lisinopril CT chest --01/14-IMPRESSION: 1. No acute findings in the chest. 2. Moderate to marked coronary artery calcifications. 3. Mild centrilobular emphysema. 4. Stable pulmonary nodule(s Constitutional: , no weakness and no fatigue, has gained wt since feb--as less active from leg pain. Eyes: no worsening of vision ENT: no hearing loss, no congestion, no runny nose, no sore throat, no tinnitus. No dental problems Resp: no cough, no sputum, no wheezing, no SOB and no hemoptysis Cardiac: no chest pain, no orthopnea, no dyspnea on exertion, no PND, no edema, no claudication andno palpitations GI: no pain, no heartburn, no diarrhea, no constipation, no blood/melena, no nausea, no vomiting : no dysuria, mild frequency of urination as she is been drinking more fluids, occasional urge incontinence Neuro: no weakness, no falling, no numbness or tingling and no vertigo Heme: no fever, no chills, no sweats, no bleeding/bruising, no weight loss and no swollen nodes Endo: no unplanned weight change, no excessive thirst and no excessive urination Skin: no rash, no itching Immunization History Administered Date(s) Administered COVID-19 mRNA, LNP-s, No Preserve, 2-Dose Series (Moderna) 05/15/2020, 06/17/2020, 12/10/2020, 08/08/2021 COVID-19, MRNA-LNP, 23-24, PF, 30 MCG/0.3 mL, 12 YRS AND ABOVE, IM (PFIZER- [facility]) 01/16/2023 Covid-19, Mrna, Lnp-s, Pf, Bivalent, 50 Mcg, IM, 12 yrs and above (Moderna) 12/31/2021 Pneumococcal Conjugate Vacc, 13 Valent (Prevnar) 05/15/2014 Pneumococcal Conjugate Vaccine, 7 Valent 03/14/2012 Pneumococcal Polysaccharide PPV23 (Pneumovax) 03/14/2012 Season Influenza, Quad, PF, Adjuvanted, 65+ Yrs, IM (FLUAD) 12/22/2019 Seasonal Influenza Virus Vaccine, Unspecified Formulation 03/14/2012, 02/11/2013, 01/24/2014, 01/16/2015, 01/31/2016, 12/26/2016, 12/22/2017 Seasonal Influenza, Quadrivalent Hd (Fluzone Hd) 01/16/2023 Seasonal Influenza, Quadrivalent Hd, 65+ Yrs 12/20/2020 Seasonal Influenza, Quadrivalent, No Preserve, IM 12/26/2016 Seasonal Influenza, Split, IIV3, With Preserve, Inj 03/14/2012, 02/11/2013, 01/24/2014, 01/16/2015 Seasonal Influenza, Trivalent, Adjuvanted, 65+ yrs 12/22/2017, 01/01/2019 Seasonal Influenza, Trivalent, High Dose, No Preserve, IM 01/31/2016, 01/27/2022 TDAP (age 10 and older)(Boostrix) 11/07/2013 Varicella Zoster Vaccine (Adult) 06/15/2012 Zoster Vaccine Recombinant (Shingrix) 11/29/2018, 01/31/2019 Patient Active Problem List Diagnosis Code Hyperlipidemia E78.5 HTN, goal below 140/90 I10 Fatty liver K76.0 H/O fracture of tibia Z87.81 Prediabetes R73.03 Polycythemia D75.1 JERI (obstructive sleep apnea) G47.33 Asymptomatic stenosis of right carotid artery I65.21 Stenosis of left subclavian artery (HCC) I77.1 Lung nodule R91.1 S/P TKR (total knee replacement), right Z96.651 Isolated proteinuria without specific morphologic lesion R80.0 Current Outpatient Medications Medication Sig Dispense Refill Vitamin D, Cholecalciferol, 400 units CAPS Take by mouth. Multivitamin Adult Extra C Oral Tablet Chewable 1 Tablet. Acetaminophen 500 MG Oral Tablet (Tylenol) Take 4 Tablets by mouth in the morning. CPAP every night at bedtime. Metoprolol Succinate ER 50 MG Oral Tablet Extended Release 24 Hour (toPROL XL) TAKE 1 TABLET BY MOUTH EVERY DAY 90 Tablet 3 Atorvastatin Calcium 20 MG Oral Tablet (Lipitor) TAKE 1 TABLET BY MOUTH EVERY DAY IN THE MORNING 90Tablet 2 Clindamycin HCl 300 MG Oral Capsule Take 1 Capsule by mouth. As needed before dental appointment Metoprolol Succinate ER 25 MG Oral Tablet Extended Release 24 Hour (toPROL XL) Take 0.5 Tablets by mouth every evening. Start 03/08/2023 (Patient taking differently: Take 0.5 Tablets by mouth in the morning. Start 03/08/2023.) 45 Tablet 3 Aspirin 81 MG Oral Capsule Take 81 mg by mouth at bedtime. No current facility-administered medications for this visit. Past Medical History: Diagnosis Date Asymptomatic stenosis of right carotid artery 10/30/2020 Benign neoplasm of colon 02/25/2014 adenomatous polyp, repeat 1 yr Chlorthalidone adverse reaction 11/05/2014 CKD (chronic kidney disease), stage III (HCC) Fibrocystic breast H/O fracture of tibia 12/12/20162011, has angus, LEFT H/O left knee surgery HLD (hyperlipidemia) HTN, goal below 150/90 11/07/2013 Hyponatremia 11/05/2014 Likely carolynn, chlorthalidone Isolated proteinuria without specific morphologic lesion 08/10/2022 Liver cyst 06/14/2021 multiple Lung nodule 06/14/2021 OA (osteoarthritis) JERI (obstructive sleep apnea) Past Surgical History: Procedure Laterality Date ARTHROPLASTY KNEE TOTAL Right 03/14/2022 ROBOTIC ARTHROPLASTY KNEE TOTAL performed by Tavon Rivera DO at OR [facility] BREAST BIOPSY-STEREOTACTIC 1971 BREAST LESION,OTHER,EXCISION Right 1971 Benign BREAST LESION,OTHER,EXCISION Right 1974 Benign BX LYMPH NODE-SUPERFIC 1996 benign COLONOSCOPY, DIAGNOSTIC (RECTUM) 08/08/2013 COLONOSCOPY FLEXIBLE PROXIMAL DIAGNOSTIC performed by Sergio Avery MD at ENDOSCOPY [facility] COLONOSCOPY, DIAGNOSTIC (RECTUM) 02/25/2014 adenomatous polyp, diverticulosis, repeat 1 yr/COLONOSCOPY FLEXIBLE PROXIMAL DIAGNOSTIC performed by Sergio Avery MD at ENDOSCOPY [facility] COLONOSCOPY, DIAGNOSTIC (RECTUM) 03/26/2015 adenomatous polyp, diverticulosis, repeat 3 yrs/COLONOSCOPY FLEXIBLE PROXIMAL DIAGNOSTIC performed by Sergio Avery MD at ENDOSCOPY [facility] COLONOSCOPY, DIAGNOSTIC (RECTUM) 07/04/2018 adenomatous polyp, diverticulosis, repeat 5 yrs/COLONOSCOPY FLEXIBLE PROXIMAL DIAGNOSTIC performed by Sergio Avery MD at ENDOSCOPY [facility] EGD, FLEXIBLE, DIAGNOSTIC 07/04/2018 reflux esophagitis/ESOPHAGOGASTRODUODENOSCOPY (EGD), FLEXIBLE, TRANSORAL, DIAGNOSTIC performed by Sergio Avery MD at ENDOSCOPY [facility] FRAGMENT KIDNEY STONE BY SHOCK WAVE Right 06/21/2021 RIGHT LITHOTRIPSY EXTRACORPOREAL SHOCK WAVE performed by Eber Renteria MD at OR [facility] INCISION OF COLON 1977 KNEE ARTHROSCOPY/SURGERY Left 03/12/2023 REALIGNMENT OF LOWER LEG 2012 tibia left Review of patient's allergies indicates: Allergen Reactions Amoxicillin Hives Amlodipine Tachycardia Tachycardia, nausea Chlorthalidone Severe hyponatremia in the setting of volume depletion Thiazide-Type Diuretics Severe hyponatremia in the setting of volume depletion Other reaction(s): SEVERE HYPONATREMIA Family History Problem Relation Age of Onset Hypertension Daughter No Past Hx Mother No Past Hx Father Cancer Sister throat Cancer Son Grandson melanoma Social History Tobacco Use Smoking status: Former Packs/day: 1.00 Years: 40.00 Additional pack years: 0.00 Total pack years: 40.00 Types: Cigarettes Quit date: 04/24/1998 Years since quittin.0 Smokeless tobacco: Never Vaping Use Vaping Use: Never used Substance Use Topics Alcohol use: Yes Alcohol/week: 2.0 standard drinks of alcohol Types: 2 5 oz of wine per week Comment: social Drug use: No OBJECTIVE: BP 158/88 | Pulse 91 | Temp 36.7 C (98.1 F) | Ht 1.607 m (5' 3.25") | Wt 103.8 kg (228 lb 14.4 oz) | SpO2 96% | BMI 40.23 kg/m | BSA 2.15 m PHYSICAL EXAM: General: alert, healthy, no distress, well nourished and well developed Head: Normocephalic, atraumatic Eye Exam: PERRLA, EOMI, Conjunctiva are pink and non-injected, sclera clear Ears: External ears normal, Nose: no mucosal erythema, no mucosal edema, no purulent discharge, mm moist Oropharynx: no exudate and no erythema, unable to see OP sec tongue interference Neck: supple Heart: regular Rhythm and rate, no murmurs. Lungs: lungs clear to auscultation Abdomen: soft, non-tender, normal bowel sounds, no masses or organomegaly, no bruits Neuro Exam: alert & oriented x 3 with fluent speech, no focal motor deficits, gait normal Skin: skin color, texture, turgor are normal, no rashes Rpt BP RARC-160/80--she was tensing arm during bp ch ASSESSMENT/PLAN: Preoperative general physical examination (Primary) Chronic pain of left knee H/O fracture of tibia S/P TKR (total knee replacement), right HTN, goal below 140/90 JERI on CPAP Stenosis of left subclavian artery (HCC) Mixed hyperlipidemia Prediabetes Dehydration Increase intake of water to at least 80 -100 oz per day. She was tense during blood pressure check, she is to check her blood pressure at home 2 hours afterher morning medication and send us the results , willing to have nurse call her on Monday. 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 She had no complications with prior surgery angus removal tibia Ct cpap post op period Patient is at average risk For perioperative cardiac event and may undergo the proposed surgery under noninvasive cardiac monitoring. Follow Up: Return if symptoms worsen or fail to improve, for Nurse Phone Follow- up. | For: Nurse Phone Follow-up | Check-out note: Nurse phone call this Monday for home bp readings 2 hr after am meds Cc - referring provider.. (This note was completed using the dictation program Fluency Direct. As such, there may be misspellings, word substitutions, or other variations that should not change the essence of the clinical content of this encounter note. If there is need for further clarification, please direct questions to the provider listed above.) Patient and / caregiver verbalize understanding of above instructions and agrees with plan of care. MD Nurys Lau MD 05/10/2023 documented in this encounter Nursing Notes * Kenny Yuen LPN - 05/10/2023 2:59 PM EST Chief Complaint Patient presents with Physical-Exam The pt stated she is here for a pre-op physical for a L knee replacement documented in this encounter Plan of Treatment Upcoming Encounters Date Type Department Care Team (Late st Contact Info) Description 06/23/2023 2:15 PM EST Telemedicine Urology Subha Salazar [address] [place] [address] Eber Renteria MD [address] [place] [address] [place] [address] 7, Telemed Ginny [facility] Urology Ex Rm [address] [place] [address] 09/28/2023 10:20 AM EDT Office Visit General Internal Medicine [facility] [address] [facility] [place] [address] Kevin Ritter MD [address] [facility] [place] [address] Scheduled Procedures Name Priority Associated Diagnoses Date/Ti [...] (2 - Td or Tdap) 11/08/2023 11/07/2013 HbA1c 03/08/2024 03/08/2023, 01/23, 12/03/2020, Additional history exists GFR 05/04/2024 05/04/2023, 02/22, 08/10/2022, Additional history exists Albumin/Creatinine Ratio 03/08/2026 023, [...] this encounter Medical Devices Implanted Type Area Stationary Engineer Device Identifier Shelf Expiration Date Model / Serial / Lot Knee X3 Ins Pos Cs Sz4 9 - [id number] Implanted:Qty: 1 on 03/14/2022 by Tavon Rivera, DO at OR [facility] Right: Knee DEBI : ORTHOPAEDICS 04/13/2026 [id number] / [id number] documented as of this encounter Visit Diagnoses Diagnosis Preoperative general physical examination- Primary Other specified pre-operative examination Chronic pain of left knee Pain in joint, lower leg H/O fracture of tibia Personal history of traumatic fracture S/P TKR (total knee replacement), right HTN, goal below 140/90 Unspecified essential hypertension JERI on CPAP Obstructive sleep apnea (adult) (pediatric) Stenosis of left subclavian artery (HCC) Atherosclerosis of other specified arteries Mixed hyperlipidemia Prediabetes Other abnormal glucose Dehydration Anxiety state Anxiety state, unspecified documented in this encounter Advance Directives Documents on File Type Date Recorded Patient Preschool Paraprofessional Expl anation Power of Lead Ingot Molder 11/25/2005 POWER OF A TTORNEY DURABLE POWER OF VOCATIONAL EDUCATION PROFESSIONAL Latest Code Status on File Code Status [...] and were consensually agreed upon. Care Teams Gaming Associate Relationship Specialty Start Date End Date Kevin Ritter MD [address] [facility] [place] [address] PCP - General Internal Medicine 03/19/12 documented as of this encounter
--- OUTSIDE RECORDS SUMMARY | 2023-05-23 05:38 | External Medical Summary | Summary of Care ---
Author Name Unknown Organization [facility] Address [address] [facility] [address] Phone [phone] Care Team Providers Care Milk Pickup Driver Name Role Phone Kevin Ritter MD Primary Care Provider + Reason for Visit * Reason Comments Physical-Exam The pt stated she is here for a pre-op physical for a L knee replacement Encounter Details Date Type Department Care Team (Late st Contact Info) Description 05/10/2023 3:00 PM EST Office Visit General Internal Medicine [facility] [place] [address] [place] [address] Nurys Mayfield MD [address] [facility] [address] Preoperative general physical examination*; Chronic pain of [...] as of this encounter (statuses as of 05/10/2023) Medications Medication Sig Dispensed Refills Start Date [...] as of this encounter (statuses as of 05/10/2023) Active Problems Problem Noted Date Diagnosed Date [...] as of this encounter (statuses as of 05/10/2023) Resolved Problems Problem Noted Date Diagnosed Date [...] as of this encounter (statuses as of 05/10/2023) Immunizations Name Administration Dates Next Due COVID-19 [...] as of this encounter Progress Notes * Nurys Mayfield MD - 05/10/2023 3:18 [...] 2023 Labs --08/10/22--nml cbc, CMp ex bun 24, nml phos, lab cr 102 03/07/22-EKG>preop--NSR, RAD, [...] and no fatigue, has gained wt since nov--as less active from leg pain. Eyes: no [...] MCG/0.3 mL, 12 YRS AND ABOVE, IM ([facility]) 01/16/2023 Covid-19, Mrna, Lnp-s, Pf, Bivalent, 50 [...] (HCC) Fibrocystic breast H/O fracture of tibia 12/12/2016 2012, has angus, LEFT H/O left knee surgery HLD (hyperlipidemia) HTN, goal below 150/90 11/07/2013 Hyponatremia 11/05/2014 Likely carolynn, chlorthalidone Isolated proteinuria without specific morphologic lesion 08/10/2022 Liver cyst 06/14/2021 multiple Lung nodule 06/14/2021 OA (osteoarthritis) JERI (obstructive sleep apnea) Past Surgical History: Procedure Laterality Date ARTHROPLASTY KNEE TOTAL Right 03/14/2022 ROBOTIC ARTHROPLASTY KNEE TOTAL performed by Tavon Rivera DO at OR [facility] BREAST BIOPSY-STEREOTACTIC 1971 BREAST LESION,OTHER,EXCISION Right 1971 Benign BREAST LESION,OTHER,EXCISION Right 1974 Benign BX LYMPH NODE-SUPERFIC 1996 benign COLONOSCOPY, DIAGNOSTIC (RECTUM) 08/08/2013 COLONOSCOPY FLEXIBLE PROXIMAL DIAGNOSTIC performed by Sergio Avery MD at [facility]OSCOPY [facility] COLONOSCOPY, DIAGNOSTIC (RECTUM) 02/25/2014 adenomatous polyp, diverticulosis, repeat 1 yr/COLONOSCOPY FLEXIBLE PROXIMAL DIAGNOSTIC performed by Sergio Avery MD at ENDOSCOPY [facility] COLONOSCOPY, DIAGNOSTIC (RECTUM) 03/26/2015 adenomatous polyp, diverticulosis, repeat 3 yrs/COLONOSCOPY FLEXIBLE PROXIMAL DIAGNOSTIC performed by Sergio Avery MD at ENDOSCOPY [facility] COLONOSCOPY, DIAGNOSTIC (RECTUM) 07/04/2018 adenomatous polyp, diverticulosis, repeat 5 yrs/COLONOSCOPY FLEXIBLE PROXIMAL DIAGNOSTIC performed by Sergio Avery MD at ENDOSCOPY [facility] EGD, FLEXIBLE, DIAGNOSTIC 07/04/2018 reflux esophagitis/ESOPHAGOGASTRODUODENOSCOPY (EGD), FLEXIBLE, TRANSORAL, DIAGNOSTIC performed by Sergio Avery MD at ENDOSCOPY [facility] FRAGMENT KIDNEY STONE BY SHOCK WAVE Right 06/21/2021 RIGHT LITHOTRIPSY EXTRACORPOREAL SHOCK WAVE performed by Eber Renteria MD [facility] COL[facility] 1977 KNEE ARTHROSCOPY/SURGERY Left 03/12/2023 REALIGNMENT OF LOWER LEG 2011 tibia left Review of patient's allergies indicates: [...] call her on Monday. 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, states she [...] EST Telemedicine Urology Subha Salazar [address] [place] [address] [place] [address] Eber Renteria MD [address] [place] [address] [place] [address] 7, Telemed [facility] Ex Rm [address] [place] [address] 09/28/2023 10:20 AM EDT Office Visit General Internal Medicine [address] [place] [address] [facility] [address] [place] [address] Kevin Ritter MD 200 [facility] [place] [address] Scheduled Procedures Name Priority Associated Diagnoses Date/Ti [...] this encounter Medical Devices Implanted Type Area Corporate Tutor Device Identifier Shelf Expiration Date Model / Serial / Lot Knee X3 Ins Pos Cs Sz4 9 - [id number] Implanted:Qty: 1 on 03/14/2022 by Tavon Rivera, at OR [facility] Right: Knee DEBI : ORTHOPAEDICS 04/13/2026 [id number] [...] Documents on File Type Date Recorded Patient Mold Tooler Expl anation Power of Logistics Vice President 11/25/2005 POWER OF A TTORNEY DURABLE POWER OF ADVERTISING SOLICITOR Latest Code Status on File Code Status [...] and were consensually agreed upon. Care Teams Milk Pickup Driver Relationship Specialty Start Date End Date Kevin Ritter MD [address] [place] [address] PCP - General Internal Medicine 03/19/12 documented as of this encounter
[2023-05-23] MEDS ORDERED: LR 500ML BOLUS, THEN 15ML/HR IV SCH (06:00)
[2023-05-23] MEDS ORDERED: TRANEXAMIC ACID 1,000 MG **IV Intra-op IV SCH (06:00)
[2023-05-23] MEDS ORDERED: ACETAMINOPHEN 500 MG TAB PO SCH (06:00)
[2023-05-23] MEDS ORDERED: ROPIV 0.5% 246mg, Ketorolac 30mg, EPINEPHrine 0.5mg in NSS INFIL SCH (06:00)
[2023-05-23] MEDS ORDERED: CeleBREX 200 MG CAP PO SCH (06:00)
[2023-05-23] MEDS ORDERED: Scopolamine 1 MG TDSY TD SCH (06:00)
[2023-05-23] MEDS ORDERED: TRANEXAMIC ACID 1,000 MG **IV Pre-op IV SCH (06:00)
[2023-05-23] MEDS ORDERED: ceFAZolin 2000MG 2,000 MG/15 ML SYR IV SCH (06:00)
[2023-05-23] MEDS ORDERED: LR 60ML/HR IV SCH (06:00)
[2023-05-23] MEDS ORDERED: BUPIVACAINE 0.25% PF 30 ML VIAL ONE (06:15)
[2023-05-23] MEDS ORDERED: DEXAMETHASONE SOD INJ 4 MG/ML VIAL ONE (06:15)
[2023-05-23] MEDS ORDERED: BUPIVACAINE 0.5 % 5 MG/1 ML PF 10ML VIAL ONE (06:15)
[2023-05-23] MEDS ORDERED: EPINEPHrine INJ 1 MG/ML AMP ONE (06:15)
--- NOTE | 2023-05-23 06:34 | History & Physical Bridge Note ---
Date of Service May 23, 2023 History & Physical Bridge Note I have examined the patient, reviewed the History & Physical and in the interval since the performance of the History & Physical I have noted the following changes of clinical significance: no changes noted
[2023-05-23] MEDS ORDERED: MIDAZOLAM HCL 1 MG/ML 2ML VIAL ONE ×2 (06:38→07:15)
[2023-05-23] MEDS ORDERED: ceFAZolin 2,000 MG/15 ML IV PUSH IV ONE (06:40)
[2023-05-23] MEDS ORDERED: DexMEDEtomidine HCL IV 100 MCG/ML VIAL IV ONE (06:44)
[2023-05-23] MEDS ORDERED: Nursing to Pharmacy Communication SCH (06:45)
[2023-05-23] MEDS ORDERED: ORTHO JOINT ANESTHETIC ONE (06:58)
[2023-05-23] MEDS ORDERED: fentaNYL citrate PF 100 MCG/2 ML VIAL IV PRN (07:01)
[2023-05-23] MEDS ORDERED: ONDANSETRON INJ 2 MG/ML 2 ML VIAL IV PRN ×2 (07:01→11:25)
[2023-05-23] MEDS ORDERED: ePHEDrine sulfate 50 MG/ML AMP IV PRN (07:01)
[2023-05-23] MEDS ORDERED: ATROPINE SULFATE 0.1 MG/ML 10ML SYR IV PRN (07:01)
[2023-05-23] MEDS ORDERED: fentaNYL citrate PF 100 MCG/2 ML VIAL ONE (08:04)
[2023-05-23] MEDS ORDERED: ePHEDrine sulfate 50 MG/5 ML SYR ONE (08:06)
[2023-05-23] MEDS ORDERED: PROPOFOL IV EMULSION 10 MG/ML 20 ML VIAL IV ONE ×3 (08:06→10:04)
[2023-05-23] MEDS ORDERED: ONDANSETRON INJ 2 MG/ML 2 ML VIAL ONE (08:06)
--- NOTE | 2023-05-23 10:18 | Post Operative Brief Note ---
Immediate Post Op Note v1 Date of Surgery May 23, 2023 Pre & Post Diagnosis Operation Date: 05/23/23 07:00 Pre-Op Diagnosis: Left Knee Osteoarthritis Post-Op Diagnosis: Left Knee Osteoarthritis I identified the patient and participated in the time-out.: Yes Procedure Operation Date: 05/23/23 07:00 Actual Procedures p Left Total Knee Arthroplasty(Left) - Trip Soto MD Surgeon Trip Soto MD Filling Hauler A MD Blaze & C PIERO Vernon Estimated Blood Loss 100 Findings Consistent with Post-Op Diagnosis Fluids 1100 cc Specimens L knee contents Anesthesia Type MAC Spinal Regional Complications none
--- NOTE | 2023-05-23 10:18 | Operative Report ---
Post Operative Report Pre & Post Diagnosis Operation Date: 05/23/23 07:00 Pre-Op Diagnosis: Left Knee Osteoarthritis Post-Op Diagnosis: Left Knee Osteoarthritis I identified the patient and participated in the time-out.: Yes Procedure Operation Date: 05/23/23 07:00 Actual Procedures p Left Total knee replacement, imageless computer assisted navigation(Left) - Trip Soto MD Surgeon Trip Soto MD Site Leader Veronica Thakur MD & Roland Vernon PA-C Estimated Blood Loss 100 Findings See Below Examined Under Anesthesia: ROM -- There was 5 degrees to 125 degrees of flexion Ligamentous examination -- revealed stable Dong, posterior drawer, varus and valgus stress at 0 and 30 degrees. [place] Grade IV changes of Medial compartment and patellofemoral compartment, grade II-III changes lateral compartment. Marginal osteophytes. Significant scaring due to previous surgeries. Fluids 1100 cc Specimens L knee contents Anesthesia Type MAC Spinal Regional Complications none Indications This is a 77-year-old female who has clinical and radiographic findings consistent with osteoarthritis of the a left knee, previous IM rodding left tibia fracture and recent hardware removal. I recommended that a left total knee replacement be performed. The patient understands the risks of surgery, which include but not limited to: bleeding, infection, re-operation, damage to nerves and arteries, continued knee pain, knee stiffness, DVT, and . The patient understands all of these instructions and explanations, all of his questions have been satisfactorily addressed and the patient has elected to proceed. Informed consent was signed. Description of Procedure IMPLANTS: 1. Femur: Triathlon #4 Left PS. 2. Tibia: Triathlon #4 [place] with 12 x 50 mm stem. 3. Insert: Triathlon #4 x 16 mm PS X3 poly. 4. Patella: Triathlon A32 x 10 mm X3 poly. 5. Palacos cement. Procedure: The patient was taken to the Operating Room and placed in the supine position after spinal and adductor canal nerve block was administered. My initials and a multidisciplinary time-out were used to identify the left leg as the correct operative limb. A tourniquet was placed high in the thigh. Prior to the incision, 2 grams of intravenous Ancef were given. The left leg was then prepped and draped in a standard sterile fashion. An Esmarch was used to exsanguinate the leg and the tourniquet was inflated to 250 mmHg. The planned mid-line 20 cm incision was created exposing the extensor mechanism. The medial parapatellar arthrotomy was made and the patella was everted. The patella was addressed first. It was prepared by reaming from 25 mm down to 15 mm. An A32 button was found to fit best. The peg holes were made in the standard fashion. The femur was addressed next and using computer assisted OrthoAlign with 3 degrees of flexion and 0 degrees of valgus, removing 10 mm in the standard fashion for the distal cut. Following AP shift, the cut was made and the 4-in-1 cutting block for a size 4 femur was placed. These cuts and the cuts to place the box were made in the standard fashion. Our attention was then drawn to the tibia cut with using imageless computer assisted OrthoAlign, taking 4 mm from the medial low side. There was sufficient extension and flexion gap to fit a 16 mm spacer. A #4 Tibial baseplate fit well. A trial with a 16 mm spacer showed excellent stability in both flexion and extension, with good ligament balance, and thumbs free patellar tracking. Range of motion of 0-120 degrees. The tibial baseplate was prepped for the keel and stem. A stem was used to by pass the previous locking screw holes from the IM angus. All components were removed. The tourniquet was deflated. Hemostasis was obtained. 90 ml of total knee cocktail were injected into the soft tissues and periosteum. After a 10 minute break, the limb was exsanguinated again and the tourniquet was re-inflated. All surfaces were copiously irrigated prior to placement of the components. The femoral component followed by Tibial baseplate were cemented in place and a 16mm trial placed. Next, the patellar button was placed using the same cement. Once the cement had cured, the range of motion and stability were unchanged. The 16 mm X3 poly was placed. Again, the range of motion and stability were unchanged The extensor mechanism was closed with 1-0 Vicryl and 0 Stratafix with the knee bent approximately 60 degrees in a standard fashion. The peritenon and deep fascia was closed with 2-0 Vicryl. The subcutaneous layer was closed with 3-0 Vicryl. The skin was closed with Zipline and shield. The limb was cleaned and dried. 4x4 dressing was placed over top followed by ABDs, sterile Webril, and a foot to thigh Alfonso bandage. The patient was then transferred to the Recovery Room in stable condition. The sponge and needle counts were correct. POST-OP INSTRUCTIONS: The patient will be WBAT. The patient will be admitted to the hospital. Complete 24-hour course antibiotics. Labs will be obtained during the stay. DVT prophylaxis will included aspirin for 6 weeks, TEDs, and mechanical foot pumps. The dressing will be changed postop day #2-3 and covered with a Silverlon dressing. I attest to the content of the Intraoperative Record and any orders documented therein. Any exceptions are noted below.
--- NOTE | 2023-05-23 10:40 | Operative Report ---
Post Operative Report Pre & Post Diagnosis Operation Date: 05/23/23 07:00 Pre-Op Diagnosis: Left Knee Osteoarthritis Post-Op Diagnosis: Left Knee Osteoarthritis I identified the patient and participated in the time-out.: Yes Procedure Operation Date: 05/23/23 07:00 Actual Procedures p Left Total Knee Arthroplasty(Left) - Trip Veronica Soto MD Surgeon D Brittany LEES Bricklayer Helper A MD Blaze & Roland Vernon PA-C Estimated Blood Loss 100 Findings Consistent with Post-Op Diagnosis Specimens see operative report Drains none Complications none Disposition Accompanied Patient To Recovery: Yes Indications This 77 year old female presented the office with complaints of persisting left knee pain. She had tried conservative care measures without improvement. She elected to proceed with surgical invention after being educated about potential risks and outcomes. Preoperative imaging was obtained. Description of Procedure The patient was administered a spinal anesthetic and then taken to the operating room where she was given sedation. She was prepped and draped in the usual sterile fashion. Please see Dr. Soto's operative report for specifics of the procedure. I was present for the entire case from initial patient positioning through final wound closure. Assistance was provided in tissue retraction, hemostasis, trial implant placement, final implant placement, and final wound closure. The patient was taken to the recovery room in satisfactory condition. I attest to the content of the Intraoperative Record and any orders documented therein. Any exceptions are noted below.
--- NOTE | 2023-05-23 10:54 | Operative Report ---
Post Operative Report Pre & Post Diagnosis Operation Date: 05/23/23 07:00 Pre-Op Diagnosis: Left Knee Osteoarthritis Post-Op Diagnosis: Left Knee Osteoarthritis I identified the patient and participated in the time-out.: Yes Procedure Operation Date: 05/23/23 07:00 Actual Procedures p Left Total Knee Arthroplasty(Left) - Trip Soto MD Surgeon Trip Soto MD Data Entry Operator A MD Blaze & C PIERO Vernon Estimated Blood Loss 100 Findings Consistent with Post-Op Diagnosis Same as postoperative diagnosis Specimens The resected bone and soft tissue. Description of Procedure Please see detailed operative note. I attest to the content of the Intraoperative Record and any orders documented therein. Any exceptions are noted below.
--- NOTE | 2023-05-23 10:55 | XRay Report ---
XR knee LT 1 or 2V routine HISTORY: 77 years-old Female Surgical Post Op left knee arthroplasty COMPARISON: 01/19/2023 TECHNIQUE: 2 views of the left knee FINDINGS: Screw tracks are again noted within the distal femur and proximal tibia. Satisfactory alignment of th e total joint arthroplasty with patellar resurfacing. Expected postoperative soft tissue swelling wit h deep tissue air. No acute fracture or unexpected opaque foreign body. IMPRESSION: Total joint arthroplasty with expected postoperative changes. ACT 112: Negative or not required by law. The above report was generated using voice recognition software. It may contain grammatical, syntax o r spelling errors. Electronically signed by: Mikael Phillips M.D. 05/23/2023 10:54 AM
[2023-05-23] MEDS ORDERED: METOCLOPRAMIDE HCL INJ 5 MG/ML 2 ML VIAL IV PRN (11:25)
[2023-05-23] MEDS ORDERED: diphenhydrAMINE 50 MG/ML VIAL IV PRN (11:25)
[2023-05-23] MEDS ORDERED: bisacodyL 10 MG SUPP PR PRN (11:25)
[2023-05-23] MEDS ORDERED: ALUMINUM/MAGNESIUM SUSP 30 ML UDC PO PRN (11:25)
[2023-05-23] MEDS ORDERED: MAGNESIUM HYDROXIDE SUSP 30 ML UDC PO PRN (11:25)
[2023-05-23] MEDS ORDERED: HYDROmorphone INJ 0.5 MG/0.5 ML SYR IV PRN (11:25)
[2023-05-23] MEDS ORDERED: NALOXONE HCL 0.4 MG/1 ML VIAL/CARP IV PRN (11:25)
[2023-05-23] MEDS: SODIUM CHLORIDE 0.9% 1,000 ML IV SCH (11:52)
[2023-05-23] MEDS: ALLERGY Noted to ORDERED Medication SCH ×6 (11:54→12:00)
[2023-05-23] MEDS ORDERED: KETOROLAC TROMETHAMINE 15 MG/ML VIAL IV SCH (12:00)
--- NOTE | 2023-05-23 12:29 | Anesthesiology Progress Note ---
Date of Service May 23, 2023 Anesthesia Post Procedure Vital Signs Vital Signs: Temp Pulse Pulse Resp BP Pulse Ox O2 Del Method 05/23/23 12:28 36.7 C 63 17 131/68 92 Room Air 05/23/23 11:59 36.6 C 63 17 150/83 H 95 Room Air 05/23/23 11:27 36.6 C 57 L 16 147/82 H 94 Room Air 05/23/23 11:15 61 13 142/73 H 94 Room Air 05/23/23 11:05 36.4 C L 60 20 137/61 96 Room Air 05/23/23 10:55 62 17 145/73 H 96 Room Air 05/23/23 10:45 78 16 150/72 H 94 Room Air 05/23/23 10:36 36.2 C L 66 16 130/93 96 Oxymask 05/23/23 05:36 36.7 C 70 20 179/97 H 95 Room Air O2 Flow Rate 05/23/23 12:28 05/23/23 11:59 05/23/23 11:27 05/23/23 11:15 05/23/23 11:05 05/23/23 10:55 05/23/23 10:45 05/23/23 10:36 9 05/23/23 05:36 Pain Intensity Left Knee: Pain Intensity: 2 Transfer of Care Handoff Completed per policy Notes Mental Status: alert / awake / arousable Patient Amnestic to Procedure: Yes Nausea / Vomiting: adequately controlled Pain: adequately controlled Airway Patency, RR, SpO2: stable & adequate BP & HR: stable & adequate Hydration State: stable & adequate Neuraxial Anesthesia: was administered and sensory block is resolving Anesthetic Complications: no major complications apparent and Pt Satisfied with anesthetic care
[2023-05-23] MEDS: ACETAMINOPHEN 500 MG TAB PO SCH ×2 (13:47→22:48)
[2023-05-23] MEDS: oxyCODONE HCL IR 5 MG TAB (IMMEDIATE RELEASE) PO PRN ×2 (15:26→20:49)
[2023-05-23] MEDS: Scopolamine CHECK PATCH PLACEMENT SCH (15:27)
[2023-05-23] MEDS: ceFAZolin 2000MG 2,000 MG/15 ML SYR IV SCH ×2 (16:56→23:00)
[2023-05-23] MEDS: ASCORBIC ACID 500 MG TAB PO SCH (16:56)
[2023-05-23] MEDS: FERROUS GLUCONATE 324 MG TAB PO SCH (16:57)
--- NOTE | 2023-05-23 17:08 | Orthopedic Progress Note ---
Date of Service May 23, 2023 Assessment & Plan (1) Osteoarthritis, knee: Plan: POD #1 s/p L TKA, doing as well as expected. Resume diet. WBAT with walker. OOB to chair. Continue pain control. Check labs tomorrow. DVT prophylaxis: TEDs 3 weeks, foot pumps while in hospital, ASA 81 mg BID for 6 weeks. PT/OT. Plan on changing dressing POD #2-3 D/C planning. Present on Admission?: Yes Admission and Anticipated Discharge Date Admission Date: May 23, 2023 Subjective Doing well Physical Exam Physical Exam: LLE: BCR < 2 sec. Sensation to light touch intact distally. Wiggling ankle and toes. Calf soft and non-tender. Dressing is clean, dry, intact.Able to preform straight leg raise. Results & Data Vital Signs (Past 12 Hours) Vital Signs Temp Pulse Pulse Resp BP BP Pulse Ox 05/23/23 15:27 36.7 C 69 18 133/69 92 05/23/23 14:29 36.5 C 66 18 128/81 92 05/23/23 12:28 36.7 C 63 17 131/68 92 05/23/23 11:59 36.6 C 63 17 150/83 H 95 05/23/23 11:27 36.6 C 57 L 16 147/82 H 94 05/23/23 11:15 61 13 142/73 H 94 05/23/23 11:05 36.4 C L 60 20 137/61 96 05/23/23 10:55 62 17 145/73 H 96 05/23/23 10:45 78 16 150/72 H 94 05/23/23 10:36 36.2 C L 66 16 130/93 96 05/23/23 05:36 36.7 C 70 20 179/97 H 95 O2 Del Method O2 Flow Rate 05/23/23 15:27 Room Air 05/23/23 14:29 Room Air 05/23/23 12:28 Room Air 05/23/23 11:59 Room Air 05/23/23 11:27 Room Air 05/23/23 11:15 Room Air 05/23/23 11:05 Room Air 05/23/23 10:55 Room Air 05/23/23 10:45 Room Air 05/23/23 10:36 Oxymask 9 05/23/23 05:36 Room Air Diagnostic Findings Impressions Knee X-Ray 05/23/23 10:46 XR knee LT 1 or 2V routine HISTORY: 77 years-old Female Surgical Post Op left knee arthroplasty COMPARISON: 01/19/2023 TECHNIQUE: 2 views of the left knee FINDINGS: Screw tracks are again noted within the distal femur and proximal tibia. Satisfactory alignment of the total joint arthroplasty with patellar resurfacing. Expected postoperative soft tissue swelling with deep tissue air. No acute fracture or unexpected opaque foreign body. IMPRESSION: Total joint arthroplasty with expected postoperative changes. ACT 112: Negative or not required by law. The above report was generated using voice recognition software. It may contain grammatical, syntax or spelling errors. Electronically signed by: Mikael Phillips M.D. 05/23/2023 10:54 AM
[2023-05-23] MEDS: DOCUSATE SODIUM 100 MG CAP PO SCH (20:50)
[2023-05-23] MEDS: ASPIRIN 81 MG ECTAB PO SCH (20:52)
[2023-05-23] MEDS ORDERED: SENNA 8.6 MG TAB PO SCH (21:00)
[2023-05-23] MEDS ORDERED: CHOLECALCIFEROL 10 MCG (400 UNITS) TAB PO SCH (21:00)
[2023-05-23] MEDS ORDERED: ATORVASTATIN 20 MG TAB PO SCH (21:00)
[2023-05-23] MEDS ORDERED: METOPROLOL SUCC 25MG EXT REL TAB PO SCH (21:00)
[2023-05-24] MEDS: oxyCODONE HCL IR 5 MG TAB (IMMEDIATE RELEASE) PO PRN ×2 (04:05→09:06)
[2023-05-24] MEDS: ACETAMINOPHEN 500 MG TAB PO SCH (06:07)
[2023-05-24] MEDS: SODIUM CHLORIDE 0.9% 1,000 ML IV SCH (06:07)
[2023-05-24] MEDS: Scopolamine CHECK PATCH PLACEMENT SCH ×2 (06:08→07:54)
[2023-05-24] MEDS: ALLERGY Noted to ORDERED Medication SCH (07:24)
[2023-05-24] MEDS: ASPIRIN 81 MG ECTAB PO SCH (07:53)
[2023-05-24] MEDS: ASCORBIC ACID 500 MG TAB PO SCH (07:54)
[2023-05-24] MEDS: FERROUS GLUCONATE 324 MG TAB PO SCH (07:54)
[2023-05-24] MEDS: DOCUSATE SODIUM 100 MG CAP PO SCH (07:54)
[2023-05-24 08:42] LABS: Hematocrit (blood only) 37.2 % (37.0-47.0); Hemoglobin 11.8 g/dl (12.0-16.0); Mean Corpuscular Hemoglobin 30.5 pg (25.0-34.0); Mean Corpuscular Hgb Conc 31.7 g/dL (32.0-36.0); Mean Corpuscular Volume 96.1 fL (80.0-100.0); Platelet Count 190 K/uL (130-400); RDW Coefficient of Variation 13.5 % (11.5-14.5); RDW Standard Deviation 47.9 fL (36.4-46.3); Red Blood Count 3.87 M/uL (4.20-5.40); White Blood Count 9.21 K/ul (4.8-10.8)
[2023-05-24] MEDS ORDERED: MULTIVITAMIN TAB PO SCH (09:00)
[2023-05-24 09:09] LABS: BUN Creatinine Ratio 27.6 (10-20); Creatinine Clr Calc Pharmacy 64.3 ml/min; Est GFR (Non-African American) 64.7 ml/min; Potassium 4.5 mmol/L (3.5-5.1)
--- NOTE | 2023-05-24 10:46 | Discharge Summary ---
Date of Service May 24, 2023 Admission HPI Per Admitting Provider See H&P Discharge Data Procedures Performed Operation Date: 05/23/23 07:00 Actual Procedures p Left Total Knee Arthroplasty(Left) - Trip Soto MD Hospital Course (1) Osteoarthritis, knee: Patient was kept in observation at [facility] after undergoing an elective left total knee arthroplasty with Dr. Soto on May 23, 2023. Her surgery was performed with spinal anesthesia and peripheral nerve block. She tolerated the procedure well without any intraoperative complications. She was given 2 g of IV Ancef and 1 g of IV TXA preoperatively. Ancef was continued for 24 hours after surgery. She was also given a postoperative dose of 1 g of TXA for bleeding prophylaxis. In the recovery room she had x-rays of her left knee which showed a stable prosthesis with no evidence of hardware failure or injury. She was allowed out of bed, weight-bear as tolerated with the assistance of a knee immobilizer. Physical therapy and Occupational Therapy was ordered to evaluate for ability to go home. She was given 81 mg aspirin twice daily for DVT prophylaxis. This will be continued for 6 weeks after her procedure. She was also given AV impulse boots and MARY ALICE stockings during her inpatient stay. Her postoperative dressings were kept in place and she will follow-up as an outpatient tomorrow to have that changed. Labs are within normal limits and as expected. She does appear to have some mild acute blood loss anemia. She remained asymptomatic and did not require any blood transfusions during her inpatient stay. She was given a regular diet. Her home medications were continued as appropriate. She was given IV Dilaudid, oxycodone and Tylenol as needed for pain control after surgery. Her pain was well- controlled. She did well out of bed and was deemed safe for discharge to her home. Discharge instructions were reviewed. All questions were answered. She was discharged to her home in stable condition on May 24, 2023.
--- NOTE | 2023-05-24 11:31 | Orthopedic Progress Note ---
Date of Service May 24, 2023 Assessment & Plan (1) Osteoarthritis, knee: Plan: POD #2 s/p L TKA, doing as well as expected. Resume diet. WBAT with walker. OOB to chair. Continue pain control. DVT prophylaxis: TEDs 3 weeks, foot pumps while in hospital, ASA 81 mg BID for 6 weeks. PT/OT. Plan on changing dressing POD #2-3 D/C planning for home later today. Admission and Anticipated Discharge Date Admission Date: May 23, 2023 Subjective Doing well Physical Exam Physical Exam: LLE: BCR < 2 sec. Sensation to light touch intact distally. Wiggling ankle and toes. Calf soft and non-tender. Dressing is clean, dry, intact.Able to preform straight leg raise. Results & Data Vital Signs (Past 12 Hours) Vital Signs Temp Pulse Pulse Resp BP BP Pulse Ox 05/24/23 09:59 36.6 C 76 66 16 112/71 128/81 94 05/24/23 07:41 36.6 C 66 16 112/71 94 05/24/23 03:00 36.7 C 76 18 122/72 96 O2 Del Method 05/24/23 09:59 05/24/23 07:41 Room Air 05/24/23 03:00 Room Air Laboratory Results 05/24/23 Range/Units 08:04 WBC 9.21 (4.8-10.8) K/ul RBC 3.87 L (4.20-5.40) M/uL Hgb 11.8 L (12.0-16.0) g/dl Hct 37.2 (37.0-47.0) % MCV 96.1 (80.0-100.0) fL MCH 30.5 (25.0-34.0) pg MCHC 31.7 L (32.0-36.0) g/dL RDW Std Deviation 47.9 H (36.4-46.3) fL RDW Coeff of Tima 13.5 (11.5-14.5) % Plt Count 190 (130-400) K/uL MPV 11.0 (9.4-12.4) fL Sodium 137 (136-145) mmol/L Potassium 4.5 (3.5-5.1) mmol/L Chloride 104 (98-107) mmol/L Carbon Dioxide 29 (21-32) mmol/L Anion Gap 4 (3-11) BUN 24 H (6-23) mg/dl Creatinine 0.87 (0.6-1.2) mg/dl Est Cr Clr Drug Dosing 64.3 ml/min Est GFR ( Amer) 75.0 ml/min Est GFR (Non-Af Amer) 64.7 ml/min BUN/Creatinine Ratio 27.6 H (10-20) Glucose 97 (70-99(Fasting)) mg/dl Calcium 9.0 (8.6-10.3) mg/dl
== END 2023-05-24 11:02 | disposition home health service (06) ==
LOC: 3N 05:14 → ASU 05:14